=== PATIENT | male | born 1985 | race Caucasian/White ===

== ENCOUNTER → 2020-06-16 08:24 | Outpatient (BNVA) | payer OTHER, SELFPAY | PROVIDERS: PCP Family Medicine; Referring Provider Family Medicine; Visit Provider Nurse Practitioner Family | DX: G47.33 Obstructive sleep apnea (adult) (pediatric) (principal); I10 Essential (primary) hypertension | CPT/HCPCS: 99214 ==

== ENCOUNTER 2020-09-01 12:39 | Outpatient (REF) | payer OTHER, SELFPAY ==
--- NOTE | 2020-09-01 12:48 | XR_ITS ---
EXAMINATION: XR ANKLE, LEFT CLINICAL INFORMATION: Sprain COMPARISON: Previous x-ray 05/07/2020 TECHNIQUE: AP, lateral, and mortise views of the left ankle. FINDINGS: Bone alignment is normal. No acute fracture or dislocation is seen. There is evidence of old trauma to the medial malleolus. The ankle mortise is normal. There is a calcaneal spur at the Achilles tendon insertion. XR/XR ankle LT min 3V IMPRESSION: Old trauma to the medial malleolus. No acute fracture or dislocation seen.
== END 2020-09-01 12:40 | disposition home or self-care (01) ==
LOC: HO.XRAY 12:39
PROVIDERS: Absent Provider Family Medicine; PCP Family Medicine; Visit Provider Internal Medicine
DX: S93.402A Sprain of unspecified ligament of left ankle, initial encounter (principal); X58.XXXA Exposure to other specified factors, initial encounter
CPT/HCPCS: 73610

== ENCOUNTER 2020-09-01 16:23 | Outpatient (REF) | payer OTHER, SELFPAY | END 2020-09-01 16:24 | disposition home or self-care (01) | LOC: HO.LAB 16:23 | PROVIDERS: Visit Provider Internal Medicine | DX: Z20.828 Contact with and (suspected) exposure to other viral communicable diseases (principal) | CPT/HCPCS: C9803; U0003 ==

== ENCOUNTER → 2020-09-22 10:27 | Outpatient (BNVA) | payer OTHER, SELFPAY | PROVIDERS: PCP Family Medicine; Visit Provider Nurse Practitioner Family ==

== ENCOUNTER → 2020-11-10 08:49 | Outpatient (BNVA) | payer OTHER, SELFPAY | PROVIDERS: PCP Family Medicine; Visit Provider Surgery | DX: L72.11 Pilar cyst (principal) | CPT/HCPCS: 99202 ==

== ENCOUNTER 2020-11-18 07:38 | Outpatient (REF) | payer OTHER, SELFPAY ==
[2020-11-18 07:27] VITALS: BP 159/91; PULSE 58; RESP 18; TEMP 36.3; O2SAT 99; BMI 35.9
--- NOTE | 2020-11-18 08:25 | P.OP_ITS ---
Operative Note Operative Note Date of Service: 11/18/20 Narrative: Preoperative diagnosis: Recurrent Pilar cyst posterior scalp Postoperative diagnosis: Same Procedure: Excision of Pilar cyst posterior scalp Surgeon: Jude Brothers MD Marketing Systems Manager: None Anesthesia: Local Indications for procedure: 35-year-old male patient with a previous history of a posterior scalp Pilar cyst now with a recurrent Pilar cyst which is painful when touched. He denies any bleeding or discharge. On examination there is a 2 cm Pilar cyst in the posterior scalp below the previous incision suggestive of a recurrence. Operative findings: 2 cm Pilar cyst posterior scalp Specimen: Pilar cyst posterior scalp Estimated blood loss: 2 mL Complications: None Procedure details: Patient was brought to the minor surgery suite placed in a supine position and then placed in a sitting position. Informed consent was confirmed. The site of surgery was confirmed by the patient in the posterior scalp. Skin was then prepped with Betadine and draped in a sterile fashion. Local anesthesia consisting of 1% lidocaine with epinephrine was then infiltrated around the cyst. An elliptical incision was then made to include the previous incision and carried down through subcutaneous tissue. Sharp dissection with a sharp scissors was then used to dissect around the Pilar cyst. Dense adhesions were noted from the previous excision. The cyst was completely excised and sent to pathology intact. Pressure was held to maintain hemostasis. Skin was then closed using interrupted 3-0 Prolene sutures. Bacitracin was applied to the incision. The patient tolerated the procedure well. He was discharged to home in stable condition.
--- NOTE | 2020-11-18 08:25 | MHC.SHP ---
Pre-Procedural Eval Section A The patient is an INPATIENT: No Changes since office visit: Yes Patient answered all questions; No Cold of Flu in the past 2 weeks, No New Medical Problems and No Changes in Medication The History & Physical has been completed within 30 days and I have reviewed it.: Yes Section B Chief Complaint: Epidermal inclusion cyst, Pilar Cyst Allergies: Allergies Allergy/AdvReac Type Severity Reaction Status Date / Time No Known Allergies Allergy Verified 06/16/20 10:27 [No Known Allergies*] Plan Diagnosis/Plan: Unchanged I have reviewed the history and physical and performed a pertinent physical examination on my patient. No changes have occurred unless specified.
== END 2020-11-18 07:39 | disposition home or self-care (01) ==
LOC: HO.MS 07:38
PROVIDERS: PCP Family Medicine; Visit Provider Surgery
PROC: (CPT 11422; principal; 2020-11-18 08:00)
DX: L72.11 Pilar cyst (principal); L90.5 Scar conditions and fibrosis of skin
CPT/HCPCS: 11422; 88304

== ENCOUNTER → 2020-11-27 08:55 | Outpatient (BNVA) | payer OTHER, SELFPAY | PROVIDERS: PCP Family Medicine; Visit Provider Surgery | DX: Z48.817 Encounter for surgical aftercare following surgery on the skin and subcutaneous tissue (principal); Z87.2 Personal history of diseases of the skin and subcutaneous tissue | CPT/HCPCS: 99212 ==

== ENCOUNTER → 2020-12-15 10:40 | Outpatient (BNVA) | payer OTHER, SELFPAY | PROVIDERS: PCP Family Medicine; Visit Provider Nurse Practitioner Family ==

== ENCOUNTER → 2021-06-08 10:24 | Outpatient (REF) | payer OTHER, SELFPAY | LOC: HO.SL 10:24 | PROVIDERS: PCP Family Medicine; Visit Provider Nurse Practitioner Family | DX: G47.33 Obstructive sleep apnea (adult) (pediatric) (principal); Z99.89 Dependence on other enabling machines and devices | CPT/HCPCS: 99211 ==

== ENCOUNTER → 2021-06-29 08:25 | Outpatient (BNVA) | payer OTHER, SELFPAY | PROVIDERS: PCP Family Medicine; Referring Provider Family Medicine; Visit Provider Nurse Practitioner Family | DX: G47.33 Obstructive sleep apnea (adult) (pediatric) (principal); I10 Essential (primary) hypertension; Z99.89 Dependence on other enabling machines and devices | CPT/HCPCS: 99212 ==

== ENCOUNTER → 2022-03-08 15:09 | Outpatient (BNVA) | payer OTHER, SELFPAY | PROVIDERS: PCP Family Medicine; Visit Provider Surgery | DX: L72.11 Pilar cyst (principal) | CPT/HCPCS: 99212 ==

== ENCOUNTER 2022-04-05 15:17 | Outpatient (REF) | payer OTHER, SELFPAY ==
--- NOTE | ~2022-04-05 | US_ITS ---
EXAMINATION: US VENOUS ULTRASOUND WITH DOPPLER LOWER EXTREMITY, LEFT CLINICAL INFORMATION: Left thigh pain COMPARISON: None TECHNIQUE: Ultrasound of the deep veins is performed from the hip to the calf with compression sonography and color and pulse Doppler assessment. Spectral analysis with color-flow imaging is performed. FINDINGS: There is normal venous compression and respiratory variation and augmented flow. The visualized common femoral vein, superficial femoral vein, profunda femoral vein, popliteal vein, and the trifurcation region shows no evidence of deep venous thrombosis. There is no significant popliteal fossa cyst. US/US venous duplex LE LT IMPRESSION: No DVT demonstrated in the left lower extremity.
== END 2022-04-05 15:18 | disposition home or self-care (01) ==
LOC: HO.US 15:17
PROVIDERS: PCP Family Medicine; Visit Provider Emergency Medicine
DX: M79.652 Pain in left thigh (principal)
CPT/HCPCS: 93971

== ENCOUNTER 2022-04-26 11:15 | Outpatient (REF) | payer OTHER, SELFPAY ==
[2022-04-26 11:22] VITALS: BMI 36.6
[2022-04-26 11:23] VITALS: BP 150/88; PULSE 75; RESP 16; TEMP 36.8; O2SAT 98
--- NOTE | 2022-05-02 14:41 | P.OP_ITS ---
Operative Note Operative Note Date of Service: 04/26/22 Narrative: Preoperative diagnosis: Pilar cyst x2 Postoperative diagnosis: Pilar cyst x2 Procedure: Excision of Pilar cyst x2 Surgeon: Jude Brothers MD Garment Sewer Hand: No physician Anesthesia: Local Indications for procedure: 36-year-old male patient with 2 Pilar cyst 1 located over the frontal scalp on the right side and a 2nd located in the posterior scalp Operative findings: Pilar cyst x2 each measuring 1.5 cm in diameter Specimen: Pilar cyst x2 Estimated blood loss: Less than 1 mL Complications: None Procedure details: Patient was brought to the minor surgery suite placed in a supine sitting position. The site of surgery was confirmed by the patient in the scalp. After assuring informed consent the scalp was prepped with Betadine and draped in a sterile fashion. Local anesthesia consisting with 2% lidocaine with epinephrine was then infiltrated over each cyst. Incision was then made with scalpel directly over the cyst carried out through subcutaneous tissue. Sharp and blunt dissection was then used to dissect the cyst from the surrounding subcutaneous tissue. Skin was then closed using a 3-0 Prolene suture. After completing the anterior frontal scalp lesion, attention was directed to the posterior lesion which again was anesthetized using 2% lidocaine with epinephrine. Incision was then made over the lesion carried down through subcutaneous tissue up to the cyst wall. Sharp and blunt dissection was used to dissect the cyst from the surrounding subcutaneous tissue. Lesion was removed and sent to pathology for further examination. Skin was then closed using interrupted 3-0 Prolene sutures. Bacitracin ointment was applied to both incisions. The patient tolerated the procedure well. He was discharged to home in stable condition.
== END 2022-04-26 11:16 | disposition home or self-care (01) ==
LOC: HO.MS 11:15
PROVIDERS: PCP Family Medicine; Visit Provider Surgery
PROC: (CPT 11422; principal; 2022-04-26 11:20)
DX: L72.11 Pilar cyst (principal)
CPT/HCPCS: 11422 ×2; 88304

== ENCOUNTER 2022-04-29 05:59 | Outpatient (REF) | payer OTHER, SELFPAY ==
--- NOTE | ~2022-04-29 | CT_ITS ---
EXAMINATION: CT ABDOMEN AND PELVIS WITH CONTRAST CLINICAL INFORMATION: Left lower quadrant pain. COMPARISON: None TECHNIQUE: Multidetector volumetric images were obtained from the superior aspect of the liver through the pubic symphysis following administration 85 mL of Omnipaque 350 intravenous contrast. Sagittal and coronal reformatted images were obtained on the technologist's workstation. Oral contrast: No This CT examination was performed using dose optimization techniques as appropriate, variously including the following: *Automated exposure control *Adjustment of mA and/or kV according to patient size (this includes techniques or standardized protocols for targeted exams where dose is matched to indication/reason for exam; i.e. extremities or head) *Use of iterative reconstruction technique DLP: 719 mGy-cm FINDINGS: LUNG BASES: The visualized lung bases are unremarkable. LIVER, GALLBLADDER, AND BILIARY TREE: The liver is normal in size, shape, and generally diminished in attenuation. No focal hepatic lesion or biliary ductal dilatation is present. The gallbladder is unremarkable with no evidence of radiopaque gallstones, gallbladder wall thickening, or obvious pericholecystic inflammatory changes. PANCREAS: Unremarkable. SPLEEN: Unremarkable. ADRENAL GLANDS: Unremarkable. KIDNEYS AND URETERS: The kidneys are normal in size, shape, and attenuation. No hydronephrosis, hydroureter, or calculi seen. No perinephric stranding. BLADDER: Unremarkable. GASTROINTESTINAL TRACT: There is mild diverticulosis, without acute diverticulitis. There is associated mild sigmoid wall thickening. No bowel obstruction, free intraperitoneal air or abscess is seen. There is no focal bowel wall thickening. The vermiform appendix is unremarkable. ABDOMINAL WALL: There is a tiny fat-containing umbilical hernia. LYMPH NODES: Normal. VASCULAR: Unremarkable. PELVIC VISCERA: The prostate and seminal vesicles are unremarkable. OSSEOUS STRUCTURES: There is multi-level mild thoracic spondylosis. At L5-S1, moderate degenerative disc disease and spondylosis. No acute or aggressive osseous abnormality is seen. CT/CT abdomen pelvis w con IMPRESSION: 1. There is mild diverticulosis, without acute diverticulitis. No bowel obstruction, free intraperitoneal air or abscess is seen. The vermiform appendix appears normal. 2. No urinary calculus or obstructive uropathy is seen. 3. There is no abdominopelvic mass, free fluid lymphadenopathy. 4. There is mild hepatic steatosis. 5. There is thoracolumbar degenerative change, most pronounced at L5-S1, with moderate degenerative disc disease. No acute or aggressive osseous abnormality is seen. Fleischner guidelines were followed.
[2022-04-29] MEDS: iohexoL 350 MG/ML 100 ML INFUS..BTL IV (08:45)
[2022-04-29] MEDS: Barium Sulfate Oral (Berry) 450 ML ORAL.SUSP 900 ML PO (08:45)
== END 2022-04-29 06:00 | disposition home or self-care (01) ==
LOC: HO.CT 05:59
PROVIDERS: PCP Family Medicine; Visit Provider Emergency Medicine
DX: R10.32 Left lower quadrant pain (principal)
CPT/HCPCS: 74177; Q9967

== ENCOUNTER → 2022-05-03 09:58 | Outpatient (BNVA) | payer OTHER, SELFPAY | PROVIDERS: PCP Family Medicine; Visit Provider Surgery | DX: Z48.02 Encounter for removal of sutures (principal); Z87.2 Personal history of diseases of the skin and subcutaneous tissue | CPT/HCPCS: 99211 ==

== ENCOUNTER 2022-07-14 09:29 | Outpatient (REF) | payer OTHER, SELFPAY ==
--- NOTE | ~2022-07-14 | XR_ITS ---
EXAMINATION: XR ankle RT min 3V CLINICAL INFORMATION: Reason for Exam PAIN COMPARISON: Ankle radiographs 10/03/2006 TECHNIQUE: AP, lateral, and oblique views of the ankle FINDINGS: No acute fracture or dislocation. Mild degenerative changes of the ankle with tibiotalar spurring and Achilles tendon enthesopathy. Small tibiotalar joint effusion. Mild soft tissue swelling about the ankle. XR/XR ankle RT min 3V IMPRESSION: 1. Mild soft tissue swelling about the ankle without acute fracture or dislocation. 2. Small tibiotalar joint effusion. 3. Mild degenerative changes of the ankle.
== END 2022-07-14 09:30 | disposition home or self-care (01) ==
LOC: HO.XRAY 09:29
PROVIDERS: PCP Internal Medicine; Visit Provider Internal Medicine
DX: M25.571 Pain in right ankle and joints of right foot (principal)
CPT/HCPCS: 73610

== ENCOUNTER 2022-08-25 16:25 | Emergency (ER) | payer OTHER, SELFPAY ==
[2022-08-25 16:33] VITALS: BP 149/77; PULSE 80; RESP 20; TEMP 36.9; O2SAT 97; BMI 35.9
--- NOTE | 2022-08-25 16:42 | ED.GENADULT ---
HPI - General Adult General Chief complaint: Abdominal Pain Stated complaint: Left lower abd pain Time Seen by Provider: 08/25/22 21:13 Related Data Home Medications Medication Instructions Recorded Confirmed chlorthalidone 25 mg tablet 25 mg PO DAILY 09/22/20 05/18/22 ibuprofen 800 mg tablet 800 mg PO TID 11/10/20 05/18/22 famotidine 20 mg tablet 20 mg PO BID 05/18/22 05/18/22 Previous Rx's Medication Instructions Recorded docusate sodium 100 mg capsule 100 mg PO BID #20 caps 08/25/22 (Colace) ketorolac 10 mg tablet 10 mg PO TID PRN pain 5 days #15 08/25/22 tabs levofloxacin 750 mg tablet 750 mg PO DAILY 7 days #7 tabs 08/25/22 metronidazole 500 mg tablet 500 mg PO BID 7 days #14 tabs 08/25/22 polyethylene glycol 3350 17 17 g PO BID PRN constipation #238 08/25/22 gram/dose oral powder (Miralax) grams sennosides 8.6 mg tablet (senna) 8.6 mg PO BEDTIME #14 tabs 08/25/22 Allergies Allergy/AdvReac Type Severity Reaction Status Date / Time No Known Allergies Allergy Verified 05/18/22 08:22 [No Known Allergies*] [facility] Past Medical History Medical History Hypertension Surgical History History of epidermal inclusion cyst excision (06/06/17) Hx of removal of cyst Family History Family History Father Diabetes Mother No problems noted. 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 Labs ordered and CT scan of abdomen. Positive LLQ tenderness on palpation. Radiologist tech called me too room and made me aware of pleny of fat stranding in testine. I received image and spoke with Charge nurse Vaishali to bring patient to the ED. Medications Administered Discontinued Medications Generic Name Dose Route Start Last Admin Trade Name Freq PRN Reason Stop Dose Admin Ketorolac Tromethamine 30 mg 08/25/22 21:56 08/25/22 22:21 Ketorolac Tromethamine 15 Mg/Ml Vial IM 08/25/22 21:57 30 mg ONCE ONE Administration Levofloxacin 500 mg 08/25/22 21:46 08/25/22 22:20 Levofloxacin 500 Mg Tablet PO 08/25/22 21:47 500 mg ONCE ONE Administration Metronidazole 500 mg 08/25/22 21:46 08/25/22 22:21 Metronidazole 500 Mg Tablet PO 08/25/22 21:47 500 mg ONCE ONE Administration Medical Decision Making Lab Data Result Diagrams: 08/25/22 17:47 08/25/22 17:47 Labs: Lab Results 08/25/22 08/25/22 08/25/22 Range/Units 17:47 17:47 17:47 WBC 13.5 H (4.8-10.8) X10*3/uL RBC 5.28 (4.60-5.80) X10*6/uL Hgb 14.4 (14.0-18.0) g/dl Hct 42.2 (42.0-52.0) % MCV 79.9 L (80.0-98.0) fL MCH 27.3 (27.0-33.0) pg MCHC 34.1 (31.0-36.0) g/dl RDW 13.1 (11.0-16.0) % Plt Count 299 (160-400) X10*3/uL MPV 10.9 (9.4-12.4) fL Immature Gran % (Auto) 0.3 (0.0-0.4) % Neut % (Auto) 75.3 H (45-73) % Lymph % (Auto) 15.1 L (20-40) % Nye % (Auto) 8.2 (2-11) % Eos % (Auto) 0.6 (0-4) % Baso % (Auto) 0.5 (0-2) % Lymph # (Auto) 2.0 (1.2-4.9) X10*3/uL Nye # (Auto) 1.1 (0.1-1.2) X10*3/uL Eos # (Auto) 0.1 (0.0-0.4) X10*3/uL Baso # (Auto) 0.1 (0.0-0.2) X10*3/uL Abs Immat Gran (auto) 0.04 H (0.00-0.03) X10*3/uL Absolute Neuts (auto) 10.1 H (2.0-8.3) x10*3/uL Absolute Nucleated RBC 0.000 (0.0-0.012) X10*3/uL Nucleated RBC % (auto) 0.0 (0.0-0.2) /100WBC PT 12.5 (10.0-13.1) SEC INR 1.1 (0.9-1.1) APTT 32.3 (26.0-36.4) SEC Sodium 141 (135-145) mmol/L Potassium 3.9 (3.3-5.1) mmol/L Chloride 101 (96-108) mmol/L Carbon Dioxide 29 (22-29) mmol/L Anion Gap 15 (12-20) BUN 14 (9-16) mg/dL Creatinine 0.96 (0.5-1.4) mg/dL Estim Creat Clear Calc 136.7 Estimated GFR > 60 Random Glucose 100 (60-115) mg/dL Calcium 9.7 (8.4-10.2) mg/dL Total Bilirubin 0.5 (0.0-1.0) mg/dL AST 26 (5-37) U/L ALT 44 H (0-40) U/L Alkaline Phosphatase 66 (39-117) U/L Total Protein 7.6 (6.5-8.0) g/dL Albumin 4.6 (3.5-5.0) g/dL Lipase 16 (8-78) U/L Discharge Plan Discharge Clinical Impression: Diverticulitis, Constipation Patient Disposition: Home, Self-Care Instructions: Diverticulitis (ED), Diverticulitis Diet (ED) Additional Instructions: Take your medications as prescribed. If you were prescribed antibiotics today, it is important that you take your medication to their entirety, do not skip any doses, do not finish them early. Follow-up with your primary care provider this week. Follow-up with Gastroenterology within the next week. Return to the emergency department with new or worsening symptoms. Such as fevers, chills, chest pain, shortness of breath, nausea, vomiting, dizziness, headache, vision changes, lethargy, rectal bleeding, inability to tolerate food by mouth, worsening pain or changing of quality of pain In case of emergency call 911 Please follow-up with diverticulitis diet Levofloxacin is an antibiotic that belongs to a class of fluoroquinolones, this antibiotic can cause tendon rupture, if you experience any pain to joints please be evaluated immediately. Do not exercise for a few weeks or until medically cleared. Do not take Toradol with any other anti-inflammatory medication, do not take with ibuprofen. Do not drink while taking this. This can increase chances of internal bleeding, GI bleeding as well as can cause kidney injury Prescriptions: New metronidazole 500 mg tablet 500 mg PO BID 7 Days Qty: 14 0RF ketorolac 10 mg tablet 10 mg PO TID PRN (Reason: pain) 5 Days Qty: 15 0RF Rx Instructions: Tolerated IM in the department levofloxacin 750 mg tablet 750 mg PO DAILY 7 Days Qty: 7 0RF docusate sodium [Colace] 100 mg capsule 100 mg PO BID Qty: 20 0RF sennosides [senna] 8.6 mg tablet 8.6 mg PO BEDTIME Qty: 14 0RF polyethylene glycol 3350 [Miralax] 17 gram/dose powder 17 g PO BID PRN (Reason: constipation) Qty: 238 0RF No Action chlorthalidone 25 mg tablet 25 mg PO DAILY ibuprofen 800 mg tablet 800 mg PO TID famotidine 20 mg tablet 20 mg PO BID Referrals: [facility] [Provider Group] - 1 day Jyoti Berry MD [Primary Care Provider] - 2 days Stand Alone Forms: Work/School Release Interventions: ED Discharge Assessment Last Done: 08/25/22 22:21 Discharge Date/Time: 08/25/22 22:29
[2022-08-25 17:51] LABS: MANUAL DIFF FLAG NO
[2022-08-25 17:53] LABS: Basophils Absolute Auto 0.1 X10*3/uL (0.0-0.2); Basophils Percent Auto 0.5 % (0-2); Eosinophils Absolute Auto 0.1 X10*3/uL (0.0-0.4); Eosinophils Percent Auto 0.6 % (0-4); Hematocrit 42.2 % (42.0-52.0); Hemoglobin 14.4 g/dl (14.0-18.0); Imm Gran Abs Auto 0.04 X10*3/uL (0.00-0.03); Imm Gran Pct Auto 0.3 % (0.0-0.4); Lymphocytes Percent Auto 15.1 % (20-40); Mean Corpuscular HGB Conc 34.1 g/dl (31.0-36.0); Mean Corpuscular Hemoglobin 27.3 pg (27.0-33.0); Mean Corpuscular Volume 79.9 fL (80.0-98.0); Mean Platelet Volume 10.9 fL (9.4-12.4); Monocytes Absolute Auto 1.1 X10*3/uL (0.1-1.2); Monocytes Percent Auto 8.2 % (2-11); Neutrophils Absolute Auto 10.1 x10*3/uL (2.0-8.3); Neutrophils Percent Auto 75.3 % (45-73); Platelet Count 299 X10*3/uL (160-400); Red Blood Count 5.28 X10*6/uL (4.60-5.80); Red Cell Distribution Width 13.1 % (11.0-16.0); White Blood Count 13.5 X10*3/uL (4.8-10.8)
[2022-08-25 18:11] LABS: INTERNATIONAL NORM RATIO 1.1 (0.9-1.1); Prothrombin Time 12.5 SEC (10.0-13.1)
[2022-08-25 18:14] LABS: Partial Thromboplastin Time 32.3 SEC (26.0-36.4)
[2022-08-25 18:20] LABS: Alanine Aminotransferase 44 U/L (0-40); Albumin Level 4.6 g/dL (3.5-5.0); Alkaline Phosphatase 66 U/L (39-117); Anion Gap 15 (12-20); Aspartate Amino Transferase 26 U/L (5-37); Bilirubin Total 0.5 mg/dL (0.0-1.0); Blood Urea Nitrogen 14 mg/dL (9-16); Calcium 9.7 mg/dL (8.4-10.2); Carbon Dioxide 29 mmol/L (22-29); Chloride 101 mmol/L (96-108); Creatinine Clr Calc Pharmacy 136.7; Estimated Glomerular Filt Rate > 60; Glucose Random 100 mg/dL (60-115); Potassium 3.9 mmol/L (3.3-5.1); Sodium 141 mmol/L (135-145); Total Protein 7.6 g/dL (6.5-8.0)
--- NOTE | 2022-08-25 21:34 | ED.ABDPAIN ---
HPI - Abdominal Pain General Chief Complaint: Abdominal Pain Stated Complaint: Left lower abd pain Time Seen by Provider: 08/25/22 21:13 Source: patient Mode of arrival: ambulatory Limitations: no limitations History of Present Illness HPI narrative: This is a 36-year-old male history of hypertension, obstructive sleep apnea, presenting to the emergency department complaints of left lower quadrant pain since this morning. Patient describes the pain as a sharp pain that is located only in the left lower quadrant without radiation, fluctuates in intensity. Associated with 3 days of no bowel movement. Reports decreased appetite however still eating and tolerating p.o.. Denies fevers, chills, chest pain, shortness of breath, nausea, vomiting, headache, vision changes, dizziness, weakness, testicular pain . No history of diverticulitis. Has not had a colonoscopy in the past. Related Data Home Medications Medication Instructions Recorded Confirmed chlorthalidone 25 mg tablet 25 mg PO DAILY 09/22/20 05/18/22 ibuprofen 800 mg tablet 800 mg PO TID 11/10/20 05/18/22 famotidine 20 mg tablet 20 mg PO BID 05/18/22 05/18/22 Previous Rx's Medication Instructions Recorded ketorolac 10 mg tablet 10 mg PO TID PRN pain 5 days #15 08/25/22 tabs levofloxacin 750 mg tablet 750 mg PO DAILY 7 days #7 tabs 08/25/22 metronidazole 500 mg tablet 500 mg PO BID 7 days #14 tabs 08/25/22 Allergies Allergy/AdvReac Type Severity Reaction Status Date / Time No Known Allergies Allergy Verified 05/18/22 08:22 [No Known Allergies*] Review of Systems Review of Systems Constitutional : No Weight loss, No Fever, No Chills, No Fatigue, No Malaise ENT/Mouth : No sore throat, No Rhinorrhea Eyes: No Eye Pain, No Swelling, No Redness Cardiovascular : No Chest Pain, No SOB, No Dyspnea on Exertion, No Orthopnea, No Edema, No Palpitations Respiratory : No Cough, No Sputum, No Wheezing Gastrointestinal : No Nausea, No Vomiting, No Diarrhea, No Constipation, + abdominal Pain, No Hematochezia, No Melena Genitourinary : No Dysuria, No Urinary Frequency, No Hematuria, Musculoskeletal : No joint pain, No Myalgias, No Joint Swelling Skin : No Skin Lesions, No rash Neuro : No Weakness, No Numbness, No Dizziness, No Headache Psych : No Anxiety/Panic, No Depression All other systems reviewed and are negative Yes all other systems are reviewed and are negative [facility] Past Medical History Attestation statement: The following information was validated with the patient. Source: old records reviewed and nursing notes reviewed Medical History Hypertension Surgical History History of epidermal inclusion cyst excision (06/06/17) Hx of removal of cyst Family History Family History Father Diabetes Mother No problems noted. 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 Appearance: Alert.? Oriented X3.? No acute distress.? Patient well-appearing Head: Normocephalic, atraumatic, no step-offs or deformities Eyes: Pupils equal, round and reactive to light.? ENT: Pharynx normal.? Neck: Normal inspection.? Neck supple.? CVS: Normal heart rate and rhythm.? Pulses normal.? Respiratory: No respiratory distress.? Breath sounds normal.? Abdomen: Soft and pain to left lower quadrant pain Skin: Skin warm and dry.? Normal skin color.? Normal skin turgor.? Extremities: No lower extremity edema.? No calf ttp. 5/5 strength to bilateral upper and lower extremities Neuro: Oriented X 3.? No motor deficit.? No sensory deficit. CN 2-12 intact Course Reevaluation(s) Reevaluation #1: Patient's CBC with slight leukocytosis. Chemistry with no acute electrolyte abnormalities requiring intervention. CT of the abdomen pelvis with acute uncomplicated diverticulitis involving the junction of the sigmoid and descending colon. Will give levofloxacin and metronidazole. Will give Toradol for pain. Patient tolerating p.o.. I suspect he can be discharged home with prompt PCP and GI follow-up. Educated patient on diagnosis and treatment plan, answered all question, patient verbalizes understanding. At this time patient will be discharged home, advised to return with new or worsening symptoms. Educated on worrisome signs and symptoms and when to return. At this time I feel comfortable discharge home. Time: 21:57 Medical Decision Making Medical Decision Making [facility] Narrative: [id number] 36-year-old male presenting to the emergency department with sudden-onset left lower quadrant pain described as sharp and intermittent in nature. No history of diverticulitis however history of diverticulosis. Has not had a colonoscopy in the past. Physical exam of left lower quadrant pain on palpation. Normoactive bowel sounds for Concerns for diverticulitis versus diverticulosis. Unlikely UTI no urinary symptoms. Unlikely acute abdomen. Patient well-appearing. Plan at this time labs, imaging Lab Data Result Diagrams: 08/25/22 17:47 08/25/22 17:47 Labs: Lab Results 08/25/22 08/25/22 08/25/22 Range/Units 17:47 17:47 17:47 WBC 13.5 H (4.8-10.8) X10*3/uL RBC 5.28 (4.60-5.80) X10*6/uL Hgb 14.4 (14.0-18.0) g/dl Hct 42.2 (42.0-52.0) % MCV 79.9 L (80.0-98.0) fL MCH 27.3 (27.0-33.0) pg MCHC 34.1 (31.0-36.0) g/dl RDW 13.1 (11.0-16.0) % Plt Count 299 (160-400) X10*3/uL MPV 10.9 (9.4-12.4) fL Immature Gran % (Auto) 0.3 (0.0-0.4) % Neut % (Auto) 75.3 H (45-73) % Lymph % (Auto) 15.1 L (20-40) % [place] % (Auto) 8.2 (2-11) % Eos % (Auto) 0.6 (0-4) % Baso % (Auto) 0.5 (0-2) % Lymph # (Auto) 2.0 (1.2-4.9) X10*3/uL [place] # (Auto) 1.1 (0.1-1.2) X10*3/uL Eos # (Auto) 0.1 (0.0-0.4) X10*3/uL Baso # (Auto) 0.1 (0.0-0.2) X10*3/uL Abs Immat Gran (auto) 0.04 H (0.00-0.03) X10*3/uL Absolute Neuts (auto) 10.1 H (2.0-8.3) x10*3/uL Absolute Nucleated RBC 0.000 (0.0-0.012) X10*3/uL Nucleated RBC % (auto) 0.0 (0.0-0.2) /100WBC PT 12.5 (10.0-13.1) SEC INR 1.1 (0.9-1.1) APTT 32.3 (26.0-36.4) SEC Sodium 141 (135-145) mmol/L Potassium 3.9 (3.3-5.1) mmol/L Chloride 101 (96-108) mmol/L Carbon Dioxide 29 (22-29) mmol/L Anion Gap 15 (12-20) BUN 14 (9-16) mg/dL Creatinine 0.96 (0.5-1.4) mg/dL Estim Creat Clear Calc 136.7 Estimated GFR > 60 Random Glucose 100 (60-115) mg/dL Calcium 9.7 (8.4-10.2) mg/dL Total Bilirubin 0.5 (0.0-1.0) mg/dL AST 26 (5-37) U/L ALT 44 H (0-40) U/L Alkaline Phosphatase 66 (39-117) U/L Total Protein 7.6 (6.5-8.0) g/dL Albumin 4.6 (3.5-5.0) g/dL Critical Care Time Critical Care Time Critical Care Time: No Discharge Plan Discharge Clinical Impression: Diverticulitis Patient Disposition: Home, Self-Care Instructions: Diverticulitis (ED), Diverticulitis Diet (ED) Additional Instructions: Take your medications as prescribed. If you were prescribed antibiotics today, it is important that you take your medication to their entirety, do not skip any doses, do not finish them early. Follow-up with your primary care provider this week. Follow-up with Gastroenterology within the next week. Return to the emergency department with new or worsening symptoms. Such as fevers, chills, chest pain, shortness of breath, nausea, vomiting, dizziness, headache, vision changes, lethargy, rectal bleeding, inability to tolerate food by mouth, worsening pain or changing of quality of pain In case of emergency call 911 Please follow-up with diverticulitis diet Levofloxacin is an antibiotic that belongs to a class of fluoroquinolones, this antibiotic can cause tendon rupture, if you experience any pain to joints please be evaluated immediately. Do not exercise for a few weeks or until medically cleared. Do not take Toradol with any other anti-inflammatory medication, do not take with ibuprofen. Do not drink while taking this. This can increase chances of internal bleeding, GI bleeding as well as can cause kidney injury Prescriptions: New metronidazole 500 mg tablet 500 mg PO BID 7 Days Qty: 14 0RF ketorolac 10 mg tablet 10 mg PO TID PRN (Reason: pain) 5 Days Qty: 15 0RF Rx Instructions: Tolerated IM in the department levofloxacin 750 mg tablet 750 mg PO DAILY 7 Days Qty: 7 0RF No Action chlorthalidone 25 mg tablet 25 mg PO DAILY ibuprofen 800 mg tablet 800 mg PO TID famotidine 20 mg tablet 20 mg PO BID Referrals: Jyoti Berry MD [Primary Care Provider] - 2 days [facility] [Provider Group] - 1 day Stand Alone Forms: Work/School Release
[2022-08-25] MEDS: levoFLOXacin 500 MG TABLET PO (22:20)
[2022-08-25] MEDS: metroNIDAZOLE 500 MG TABLET PO (22:21)
[2022-08-25] MEDS: Ketorolac Tromethamine 15 MG/ML VIAL 30 MG IM (22:21)
[2022-08-25 22:22] LABS: Lipase 16 U/L (8-78)
== END 2022-08-25 22:29 | disposition home or self-care (01) ==
PROVIDERS: Physician Assistant; Emergency Provider Internal Medicine; PCP Family Medicine
DX: K57.32 Diverticulitis of large intestine without perforation or abscess without bleeding (principal); I10 Essential (primary) hypertension
CPT/HCPCS: 36415; 74176; 80053; 83690; 85025; 85610; 85730; 96372; 99283; 99284; J1885

== ENCOUNTER → 2022-09-13 08:18 | Outpatient (BNVA) | payer OTHER, SELFPAY | PROVIDERS: PCP Family Medicine; Referring Provider Family Medicine; Visit Provider Internal Medicine | DX: K57.32 Diverticulitis of large intestine without perforation or abscess without bleeding (principal) | CPT/HCPCS: 99202 ==

== ENCOUNTER 2022-09-22 08:13 | Outpatient (REF) | payer OTHER, SELFPAY ==
--- NOTE | ~2022-09-22 | US_ITS ---
EXAMINATION: US ABDOMEN COMPLETE CLINICAL INFORMATION: Elevated LFTs. COMPARISON: CT abdomen and pelvis 08/25/2022. TECHNIQUE: Real-time imaging of the abdominal viscera. FINDINGS: PANCREAS: Obscured by overlying bowel gas. ABDOMINAL AORTA: Obscured by overlying bowel gas. INFERIOR VENA CAVA: Visualized portions are normal. LIVER: The liver is normal in size. The liver contour is normal. Diffuse increased echogenicity of the liver parenchyma. No focal hepatic lesion. There is no intrahepatic biliary duct dilatation seen. GALLBLADDER: Normal. The gallbladder is physiologically distended without evidence of stones, sludge, polyps, wall thickening or pericholecystic fluid. COMMON BILE DUCT: Normal in caliber measuring 0.3 cm in diameter. RIGHT KIDNEY: Normal. No hydronephrosis. No renal calculi or focal parenchymal lesions. The kidney measures 10.7 cm in maximum dimension. LEFT KIDNEY: Normal. No hydronephrosis. No renal calculi or focal parenchymal lesions. The kidney measures 11.3 cm in maximum dimension. SPLEEN: Normal. The spleen measures 11.9 cm in maximum dimension. FREE FLUID: None. US/US abdomen complete IMPRESSION: Diffuse increased echogenicity of the liver parenchyma likely reflects fatty infiltration.
== END 2022-09-22 08:14 | disposition home or self-care (01) ==
LOC: HO.US 08:13
PROVIDERS: PCP Family Medicine; Visit Provider Family Medicine
DX: R74.01 Elevation of levels of liver transaminase levels (principal)
CPT/HCPCS: 76700

== ENCOUNTER 2022-10-26 08:13 | Day surgery (SDC) | payer OTHER, SELFPAY ==
[2022-10-19 14:46] VITALS: BMI 33.8
[2022-10-26 08:35] VITALS: BP 147/94; PULSE 77; RESP 18; TEMP 36.5; O2SAT 99; BMI 33.8
[2022-10-26] MEDS: Lactated Ringers 1,000 ML 50 ML IVCONT (08:57)
--- NOTE | 2022-10-26 10:25 | P.OP_ITS ---
Operative Note Operative Note Date of Service: 10/26/22 Narrative: Procedure: Colonoscopy Indication: Diverticulitis Endoscopist: Molly Trevino MD Anesthesia Provider: Dr Haydee Hayward Anesthesia type: MAC Instrument: Olympus [id number]-[id number] Consent: Indication, risks vs benefits, and alternatives were discussed with the patient who gave written informed consent to proceed. EKG, pulse, pulse oximetry and blood pressure were monitored throughout the procedure. Please see anesthesia flowsheet. Procedure: The patient was brought to the procedure room and placed in the left lateral decubitus position. IV medications were administered by the anesthesia provider in attendance. A digital rectal exam was performed which was normal. The colonoscope was then inserted through the anus and advanced through the colon to the cecum at 70 cm,and terminal ileum. Mucosa was carefully examined under high definition white light as the instrument was slowly withdrawn in a retrograde panoramic fashion. Retroflexion was performed in rectum. The procedure was not difficult. There were no immediate obvious complications. The quality of the prep was BBPS: 3+3+3 = excellent Withdrawal time 8 minutes. Limitations: No limitations. Findings: Mucosa: Normal to cecum and terminal ileum. Protruding lesions: * Medium internal hemorrhoids without stigmata of recent bleeding. Excavated lesions: * Moderate diverticulosis of left sided colon. Impression: 1. Normal colon and terminal ileum mucosa 2. Diverticulosis 3. Internal hemorrhoids Recommendations: - Resume CRC screening at 47y.o - Increase fiber intake. Above findings were reviewed with the patient.
--- NOTE | 2022-10-26 10:25 | MHC.SHP ---
Pre-Procedural Eval Section A Date of Service: 10/26/22 Section B Chief Complaint: Hx of diverticulitis Details of Present Illness: Medical History Hypertension Surgical History History of epidermal inclusion cyst excision (06/06/17) Hx of removal of cyst Relevant Family History (Specify if Yes): No Present Medications: see Short Stay Collaborative assessment Medical History: Significant History (as above ) History of Previous Operations: Relevant previous surgery/procedure and date(s) (as above ) Allergies: Allergies Allergy/AdvReac Type Severity Reaction Status Date / Time No Known Allergies Allergy Verified 05/18/22 08:22 [No Known Allergies*] Review of Systems Review of Systems Comment: Ten point ROS negative Exam Exam Comment: Gen appear: No acute distress HEENT: no icterus Chest: No overt resp distress Abd: soft, nontender, nondistended Psych: Stable affect, answering questions appropriately Neuro: A/Ox3 noted to move all extremities spontaneously Ext: no peripheral edema Plan Diagnosis/Plan: Unchanged I have reviewed the history and physical and performed a pertinent physical examination on my patient. No changes have occurred unless specified. Time Spent With Patient Time: Total time managing care of this patient today ____ minutes.
--- NOTE | 2022-10-26 10:59 | HO.ANESPROP2 ---
HPI - Anesthesia Eval Consult details Narrative: 37 yr old for diverticulitis , colonoscopy PMFSH Active Problems Active Problems: All Active Problems (Updated 10/19/22 @ 14:49 by Lorna Mc RN) Severe obstructive sleep apnea (Acute ~06/16/20) Pilar cyst (Acute) Diverticulitis large intestine (Acute) Hypertension (Acute) Past Medical History Medical History (Updated 10/19/22 @ 14:49 by Lorna Mc RN) Arthritis Diverticulitis GERD (gastroesophageal reflux disease) Hypertension Obstructive sleep apnea Family History Family History Father Diabetes Mother No problems noted. Family history of problems with anesthesia: No Surgical History Surgical History (Updated 10/19/22 @ 14:29 by Lorna Mc RN) History of epidermal inclusion cyst excision (06/06/17) Hx of removal of cyst History of Problems with Anesthesia: No Social History Social History Household Members: Spouse and Children Alcohol intake: never Patient Tobacco Use Status: Never used Tobacco Use of substances other than those prescribed or required for medical reasons: Yes Substance Use Type Other:: has not used any marijuana recently Substance Use Frequency: Occasionally Have you been hit, kicked, punched, or otherwise hurt by someone within the past year? 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- [employer] Meds Allergies Allergy/AdvReac Type Severity Reaction Status Date / Time No Known Allergies Allergy Verified 05/18/22 08:22 [No Known Allergies*] Active Medications: Current Medications Lactated Ringer's (Lr) 1,000 mls @ 50 mls/hr IVCONT .Q20H FRED Last Admin: 10/26/22 08:57 Dose: 50 mls/hr Home Medications Medication Instructions Recorded Confirmed Last Taken Type chlorthalidone 25 mg tablet 25 mg PO DAILY 09/22/20 10/19/22 Unknown History ibuprofen 800 mg tablet 800 mg PO TID 11/10/20 10/19/22 09/26/22 History omeprazole 20 mg capsule,delayed 1 cap PO DAILY 10/26/22 10/26/22 Unknown History release Exam Exam Date and Time: October 26, 2022 1059 Height,Weight and Vital Signs: Height 5 ft 10 in Weight 107.048 kg Last Vital Signs Temp 97.7 F 10/26/22 08:35 Pulse 77 10/26/22 08:35 Resp 18 10/26/22 08:35 BP 147/94 H 10/26/22 08:35 Pulse Ox 99 10/26/22 08:35 O2 Del Method 10/26/22 08:35 Airway Mallampati Class: II TM Dist: >3cm Neck ROM: Full Heart: rrr Lungs: cta Assessment and Plan Assessment Anesthesia Assessment: Anesthesia Plan Discussed and Chart Reviewed Final Anesthetic Review Family History of Problems with Anesthesia: No History of Problems with Anesthesia: No NPO: Yes ASA Class: II Final Preanesthetic Review: No Changes in Pt Med Stat, Meds/Allgs Chart Reviewed, Consent Obtained/Reviewed and Anes Risks/Benef Reviewed Patient Risk: Low Procedure Risk: Low Anesthetic Plan Anesthetic Plan: MAC: Disposition: Standard PACU
--- NOTE | 2022-10-26 11:32 | HO.ANESPROP2 ---
[facility] Active Problems Active Problems: All Active Problems (Updated 10/19/22 @ 14:49 by Lorna Mc RN) Severe obstructive sleep apnea (Acute ~06/16/20) Pilar cyst (Acute) Diverticulitis large intestine (Acute) Hypertension (Acute) Past Medical History Medical History (Updated 10/19/22 @ 14:49 by Lorna Mc RN) Arthritis Diverticulitis GERD (gastroesophageal reflux disease) Hypertension Obstructive sleep apnea Family History Family History Father Diabetes Mother No problems noted. Family history of problems with anesthesia: No Surgical History Surgical History (Updated 10/19/22 @ 14:29 by Lorna Mc RN) History of epidermal inclusion cyst excision (06/06/17) Hx of removal of cyst History of Problems with Anesthesia: No Social History Social History Household Members: Spouse and Children Alcohol intake: never Patient Tobacco Use Status: Never used Tobacco Use of substances other than those prescribed or required for medical reasons: Yes Substance Use Type Other:: has not used any marijuana recently Substance Use Frequency: Occasionally Have you been hit, kicked, punched, or otherwise hurt by someone within the past year? 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- [employer] Meds Allergies Allergy/AdvReac Type Severity Reaction Status Date / Time No Known Allergies Allergy Verified 05/18/22 08:22 [No Known Allergies*] Active Medications: Current Medications Lactated Ringer's (Lr) 1,000 mls @ 50 mls/hr IVCONT .Q20H FRED Last Admin: 10/26/22 08:57 Dose: 50 mls/hr Home Medications Medication Instructions Recorded Confirmed Last Taken Type chlorthalidone 25 mg tablet 25 mg PO DAILY 09/22/20 10/19/22 Unknown History ibuprofen 800 mg tablet 800 mg PO TID 11/10/20 10/19/22 09/26/22 History omeprazole 20 mg capsule,delayed 1 cap PO DAILY 10/26/22 10/26/22 Unknown History release Exam Exam Date and Time: October 26, 2022 1132 Height,Weight and Vital Signs: Height 5 ft 10 in Weight 107.048 kg Last Vital Signs Temp 97.7 F 10/26/22 08:35 Pulse 77 10/26/22 08:35 Resp 18 10/26/22 08:35 BP 147/94 H 10/26/22 08:35 Pulse Ox 99 10/26/22 08:35 O2 Del Method 10/26/22 08:35 Airway Mallampati Class: II TM Dist: >3cm Neck ROM: Full Heart: rrr Lungs: cta Assessment and Plan Final Anesthetic Review Family History of Problems with Anesthesia: No History of Problems with Anesthesia: No ASA Class: II Final Preanesthetic Review: No Changes in Pt Med Stat, Meds/Allgs Chart Reviewed, Consent Obtained/Reviewed and Anes Risks/Benef Reviewed Patient Risk: Low Procedure Risk: Low Anesthetic Plan Anesthetic Plan: MAC: and Agree w/ Assess. and Plan Disposition: Standard PACU
[2022-10-26 12:10] VITALS: BP 100/52; PULSE 76; RESP 17; TEMP 36.6; O2SAT 100
[2022-10-26 12:25] VITALS: BP 122/73; PULSE 70; RESP 17; TEMP 36.6; O2SAT 97
== END 2022-10-26 12:57 | disposition home or self-care (01) ==
PROVIDERS: PCP Family Medicine; Visit Provider Internal Medicine
PROC: 0DJD8ZZ Inspection of Lower Intestinal Tract, Via Natural or Artificial Opening Endoscopic (ICD-10-PCS; CPT 45378; principal; 2022-10-26 09:30)
DX: K57.30 Diverticulosis of large intestine without perforation or abscess without bleeding (principal); K64.8 Other hemorrhoids; G47.33 Obstructive sleep apnea (adult) (pediatric); I10 Essential (primary) hypertension; K21.9 Gastro-esophageal reflux disease without esophagitis; M19.90 Unspecified osteoarthritis, unspecified site; Z79.899 Other long term (current) drug therapy; Z79.1 Long term (current) use of non-steroidal anti-inflammatories (NSAID); Z99.89 Dependence on other enabling machines and devices
CPT/HCPCS: 45378; J2250

== ENCOUNTER → 2022-11-11 13:59 | Outpatient (BNVA) | payer OTHER, SELFPAY | PROVIDERS: PCP Family Medicine; Visit Provider Internal Medicine | DX: K57.90 Diverticulosis of intestine, part unspecified, without perforation or abscess without bleeding (principal); K76.0 Fatty (change of) liver, not elsewhere classified; R74.01 Elevation of levels of liver transaminase levels; E66.9 Obesity, unspecified | CPT/HCPCS: 99212 ==

== ENCOUNTER → 2023-03-02 10:30 | Outpatient (BNVA) | payer OTHER, SELFPAY | PROVIDERS: PCP Family Medicine; Visit Provider Internal Medicine | DX: S60.012A Contusion of left thumb without damage to nail, initial encounter (principal); W23.2XXA Caught, crushed, jammed or pinched between a moving and stationary object, initial encounter | CPT/HCPCS: 73130; 99203 ==

== ENCOUNTER 2023-06-05 10:16 | Outpatient (REF) | payer OTHER, SELFPAY ==
[2023-06-05 12:50] LABS: Alanine Aminotransferase 23 U/L (0-40); Albumin Level 4.5 g/dL (3.5-5.0); Alkaline Phosphatase 62 U/L (39-117); Aspartate Amino Transferase 21 U/L (5-37); Bilirubin Direct 0.1 mg/dL (0.0-0.5); Bilirubin Total 0.4 mg/dL (0.0-1.0); Total Protein 7.9 g/dL (6.5-8.0)
[2023-06-05 12:57] LABS: HBS Num1 115.96 mIU/mL (0-7.99); HBc Num1 0.25 S/CO (0.00-0.79); HBsAGNum1 0.43 S/CO (0.00-0.99); Hepatitis B Core Antibody Nonreactive (Nonreactive); Hepatitis B Surface Antigen Negative (Negative); ~HepC Num1 0.18 S/CO (0.00-0.79); ~Hepatitis B Surface Antibody REACTIVE (Nonreactive); ~Hepatitis C Antibody Nonreactive (Nonreactive)
[2023-06-05 13:05] LABS: Hepatitis A Antibody IgG Nonreactive (Nonreactive); ~Hepatitis A Antibody IgG 0.42 S/CO (0.00-0.99)
== END 2023-06-05 10:17 | disposition home or self-care (01) ==
LOC: HO.LAB 10:16
PROVIDERS: Visit Provider Internal Medicine
DX: E66.9 Obesity, unspecified (principal); K76.0 Fatty (change of) liver, not elsewhere classified; R74.01 Elevation of levels of liver transaminase levels
CPT/HCPCS: 36415; 80076; 86704; 86706; 86708; 86803; 87340; 99212

== ENCOUNTER 2023-06-05 15:40 | Outpatient (AMB) | payer OTHER, SELFPAY ==
--- NOTE | 2023-06-05 15:44 | A.OFFVIS_ITS ---
Intake Vital Signs 06/05/23 15:47 Height 5 ft 10 in Weight 238 lb 1.588 oz BMI 34.2 BP 126/66 Blood Pressure Location Lt brachial Position Sitting Pulse 67 Intake Visit Reasons: 6 month follow up Intake Note: Gunnar presents in the office as a 6 month follow up. CC: Allergies No Known Allergies [No Known Allergies*] Allergy (Verified 06/05/23 15:47) HPI HPI Comments History of Present Illness Details 36 y.o M with hx of recent diverticuliti s who is presenting for follow- up after colonoscopy. 09/13/2022: Was seen in ER on 08/25 for LLQ pain associated with diarrhea and scant blood in stool x 3 days prior to presentation. Was discharged on levaquin and flagyl x 7 days. LLQ pain resolved in a few days but now has epigastric pain with loss of appetite. No N,V. Stools are now normal in consistency. Has also noted some weight loss in the last one month, has not documented it but feels that clothes are looser now. No fam of IBD or CRC. No prior hx of episodes. Does not smoke or drink. ROS: 10 point ROS negative except as above. 10/26/22 - [place]: Impression: 1. Normal colon and terminal ileum mucos a 2. Diverticulosis 3. Internal hemorrhoids 11/11/22: Patient currently without any gastrointestinal complaints to include abdominal pain, nausea, vomiting, changes in bowel habits. No unintentional weight loss, although is trying for intentional weight loss by cutting down on sodas, chocolates etc. Findings of the colonoscopy reviewed with the patient. We also reviewed blood work and ultrasound that shows some evidence of fatty liver. Patient's BMI 33. 06/05/23: No gastrointestinal complaints. Visit set up to follow up on fatty liver. Pt has gained almost 7-8 lbs since the last visit. Overdue for lipid and T2DM screening. Cont to limit his etOH intake to 1-2 drinks per month. Labs reviewed. Fib-4: 0.51. PFSH Medical History Arthritis Diverticulitis GERD (gastroesophageal reflux disease) Hypertension Obstructive sleep apnea Surgical History History of epidermal inclusion cyst excision (06/06/17) Hx of colonoscopy Hx of removal of cyst Family History Father Diabetes Mother No problems noted. 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- [employer] Review of Systems Const All systems reviewed & are unremarkable except as noted in HPI and below Physical Exam Vital Signs: Last Vital Signs Pulse 67 06/05/23 15:47 BP 126/66 06/05/23 15:47 BMI result Body Mass Index 34.2 Gen appear: No acute distress, well nourished HEENT: no icterus, no cervical lymphadenopathy Chest: No overt resp distress CVS: S1/S2, regular Abd: soft, nontender, nondistended Psych: Stable affect, answering questions appropriately Neuro: A/Ox3 noted to move all extremities spontaneously Ext: no peripheral edema Assessment & Plan Assessment & Plan (1) Obesity: Code(s): E66.9 - Obesity, unspecified (2) Fatty liver: Code(s): K76.0 - Fatty (change of) liver, not elsewhere classified (3) Elevated liver transaminase level: Code(s): R74.01 - Elevation of levels of liver transaminase levels Plan 1. Obesity/fatty liver: Rare alcohol use. Hepatitis serology is negative from 2019. Reviewed that most likely nonalcoholic fatty liver disease in the setting of underlying obesity. Patient also has JACKIE. Unfortunately has gained more weight since last visit. Also overdue for lipid and diabetes screening. He was reassured that based on low Fib-4 score, unlikely to have advanced fibrosis however can certainly progress to it if WEBB remains unchecked. - Weight loss of at least 10% body weight over 6 months - At least moderate intensity activity x 150 mins/week - Management of DM and HLD as per guidelines if present - Minimize etOH, NSAIDs. - Pt will cont to follow up with PCP since no evidence of advanced liver disease at this time but encouraged to call us for any questions or concerns that may arise in future. Coding Level of Care Code Est Pt Level 4 (42266) Diagnoses Obesity E66.9 Fatty liver K76.0 Elevated liver transaminase level R74.01
[2023-06-05 15:47] VITALS: BP 126/66; PULSE 67; BMI 34.2
== END 2023-06-05 16:28 | disposition home or self-care (01) ==
PROVIDERS: PCP Family Medicine; Visit Provider Internal Medicine
DX: E66.9 Obesity, unspecified (principal); K76.0 Fatty (change of) liver, not elsewhere classified; R74.01 Elevation of levels of liver transaminase levels
CPT/HCPCS: 99214

== ENCOUNTER 2023-07-12 15:10 | Outpatient (AMB) | payer OTHER, SELFPAY ==
--- NOTE | 2023-07-12 15:26 | A.OFFVIS_ITS ---
Intake Vital Signs 07/12/23 15:28 Height 5 ft 10 in Weight 244 lb 2 oz BMI 35.0 BP 120/84 Blood Pressure Location Lt brachial Position Sitting Pulse 72 Pulse Source Pulse Oximeter Pulse Oximetry (%) 96 Oxygen Delivery Method Room Air Intake Visit Reasons: yr f/u with Fanny Irby - JACKIE-Confirmed Intake Note: Pt presents today for JACKIE fup no new sxs Allergies No Known Allergies [No Known Allergies*] Allergy (Verified 07/12/23 15:30) HPI HPI Comments History of Present Illness Details 37-yr-old male presents for follow-up of JACKIE on CPAP. Pt reports he was sick for couple of days and could not use CPAP. He usually sleeps well and wakes up rested when he uses CPAP. He gained about 13 lb over the the last 9 months. APAP compliance report (06/07/23-07/06/23) reveals APAP 5-20 cmH2O with max pressure of 12.9 cmH2O; overall usage of 63% with usage > 4 hours of 53%; and residual AHI of 0.6/hr. [facility] Medical History Arthritis GERD (gastroesophageal reflux disease) Diverticulitis Obstructive sleep apnea Hypertension Surgical History Hx of colonoscopy History of epidermal inclusion cyst excision (06/06/17) Hx of removal of cyst Family History Father Diabetes Mother No problems noted. Social History Household Members: Spouse and Children Alcohol intake: never Patient Tobacco Use Status: Never used Tobacco Current occupational status: employed Current occupation: [employer] Review of Systems Const All systems reviewed & are unremarkable except as noted in HPI and below Physical Exam Vital Signs: Last Vital Signs Pulse 72 07/12/23 15:28 BP 120/84 07/12/23 15:28 Pulse Ox 96 07/12/23 15:28 Oxygen Delivery Method Room Air 07/12/23 15:28 Assessment & Plan Assessment & Plan (1) Severe obstructive sleep apnea: Onset Date: ~06/16/20 Comment: Home sleep study: AHI 29.6/hr with O2 trish 85% Code(s): G47.33 - Obstructive sleep apnea (adult) (pediatric) Plan Continue APAP cmH2O nightly > 4 hours, as pt is experiencing good clinical effect. Clean machine routinely. Change PAP supplies routinely. Advised to call [facility] and request new tubing. Pt to notify us/respiratory homecare company with any concerns or question. Wt reduction advised. Coding Level of Care Code Est Pt Level 3 (18395) Diagnoses Severe obstructive sleep apnea G47.33
[2023-07-12 15:28] VITALS: BP 120/84; PULSE 72; O2SAT 96; BMI 35.0
== END 2023-07-12 15:39 | disposition home or self-care (01) ==
PROVIDERS: Visit Provider Nurse Practitioner Family
DX: G47.33 Obstructive sleep apnea (adult) (pediatric) (principal)
CPT/HCPCS: 99213

== ENCOUNTER → 2023-07-12 15:10 | Outpatient (BNVA) | payer OTHER, SELFPAY | PROVIDERS: Visit Provider Nurse Practitioner Family | DX: G47.33 Obstructive sleep apnea (adult) (pediatric) (principal) | CPT/HCPCS: 99212 ==

== ENCOUNTER → 2023-08-03 14:23 | Outpatient (BNVA) | payer OTHER, SELFPAY | PROVIDERS: PCP Family Medicine; Visit Provider Physician Assistant | DX: S01.21XA Laceration without foreign body of nose, initial encounter (principal); W20.8XXA Other cause of strike by thrown, projected or falling object, initial encounter | CPT/HCPCS: 99203 ==

== ENCOUNTER 2024-01-25 09:12 | Outpatient (REF) | payer OTHER, SELFPAY ==
[2024-01-25 10:41] LABS: Alanine Aminotransferase 27 U/L (0-40); Albumin Level 4.5 g/dL (3.5-5.0); Alkaline Phosphatase 55 U/L (39-117); Anion Gap 15 (12-20); Aspartate Amino Transferase 25 U/L (5-37); Bilirubin Direct 0.2 mg/dL (0.0-0.5); Bilirubin Total 0.5 mg/dL (0.0-1.0); Blood Urea Nitrogen 18 mg/dL (9-16); Calcium 9.7 mg/dL (8.4-10.2); Carbon Dioxide 26 mmol/L (22-29); Chloride 103 mmol/L (96-108); Estimated Glomerular Filt Rate > 60; Glucose Random 92 mg/dL (60-115); Potassium 3.7 mmol/L (3.3-5.1); Sodium 140 mmol/L (135-145); Total Protein 7.7 g/dL (6.5-8.0)
== END 2024-01-25 09:13 | disposition home or self-care (01) ==
LOC: HO.LAB 09:12
PROVIDERS: PCP Family Medicine; Visit Provider Family Medicine
DX: I10 Essential (primary) hypertension (principal); E78.5 Hyperlipidemia, unspecified
CPT/HCPCS: 36415; 80048; 80076

== ENCOUNTER 2024-03-28 06:45 | Outpatient (REF) | payer OTHER, SELFPAY ==
[2024-03-28 07:19] LABS: Anion Gap 14 (12-20); Blood Urea Nitrogen 16 mg/dL (9-16); Calcium 9.6 mg/dL (8.4-10.2); Carbon Dioxide 27 mmol/L (22-29); Chloride 102 mmol/L (96-108); Cholesterol 168 mg/dL (<200); Estimated Glomerular Filt Rate > 60; Glucose Random 99 mg/dL (60-115); HDL Cholesterol 36 mg/dL (>40); LDL Cholesterol Calculated 98 mg/dL (<100); Potassium 3.7 mmol/L (3.3-5.1); Sodium 139 mmol/L (135-145); Triglycerides 174 mg/dL (<150)
== END 2024-03-28 06:46 | disposition home or self-care (01) ==
LOC: HO.LAB 06:45
PROVIDERS: PCP Family Medicine; Visit Provider Family Medicine
DX: I10 Essential (primary) hypertension (principal); E78.5 Hyperlipidemia, unspecified
CPT/HCPCS: 36415; 80048; 80061

== ENCOUNTER 2024-04-18 09:59 | Outpatient (AMB) | payer OTHER, SELFPAY ==
--- NOTE | 2024-04-18 10:03 | MHC.OFFVIS ---
Vital Signs 04/18/24 10:17 Height 5 ft 10 in Weight 243 lb BMI 34.9 BP 131/63 Blood Pressure Location Lt brachial Position Sitting Pulse 61 Intake Visit Reasons: Cyst on Scalp Intake Note: multiple cyst in the scalp about 6 of them, biggest one about 5 yrs, had some removed in the past, increase in quantity and size, , minimal pain, denies redness, discharge, swelling or infections Occupational Rehabilitation Aide Required: No Accompanied by: Self / Same As Patient Allergies No Known Allergies [No Known Allergies*] Allergy (Verified 07/12/23 15:30) Medication List - Last Reconciled 04/18/24 by Jude Brothers MD blood pressure test kit-large As directed chlorthalidone 25 mg PO DAILY lisinopril 10 mg PO DAILY omega 5-bpj-fua-fish oil 300 mg (120 mg- 180mg)-1,000 mg caps PO HPI Comments Details: 38-year-old male patient with a previous history of Pilar cyst returning today with for new Pilar cyst throughout his scalp bilaterally. Largest located on the left parietal region is causing pressure on his scalp and causing some increased discomfort. He denies any bleeding or discharge from any of the sites. He is requesting excision of the enlarging Pilar cysts. [facility] Medical History Arthritis GERD (gastroesophageal reflux disease) Diverticulitis Obstructive sleep apnea Hypertension Surgical History Hx of colonoscopy History of epidermal inclusion cyst excision (06/06/17) Hx of removal of cyst Family History Father Diabetes Mother No problems noted. 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- [employer] Review of Systems Const All systems reviewed & are unremarkable except as noted in HPI and below Physical Exam Vital Signs: Last Vital Signs Pulse 61 04/18/24 10:17 BP 131/63 04/18/24 10:17 BMI result Body Mass Index 34.9 Const General: no acute distress Nutritional Appearance: well nourished Orientation/consciousness: patient oriented x3 Limitations: no limitations Resp Effort & Inspection: normal respiratory effort, no audible wheezes, no cough and no respiratory distress Skin General skin exam: no rashes or lesions noted Neuro General: patient oriented x3 Extrem General: Yes no clubbing, cyanosis or edema Assessment & Plan Assessment & Plan (1) Pilar cyst: Code(s): L72.11 - Pilar cyst Category: Medical Plan 38-year-old male patient presenting with multiple Pilar cysts of the scalp as noted above. He has requested excision of the lesions and after discussion of the procedure, risks, and alternatives, consents to the procedure. He will be scheduled as an office procedure under local anesthesia. Coding Level of Care Code Est Pt Level 4 (14003) Diagnoses Pilar cyst L72.11
[2024-04-18 10:17] VITALS: BP 131/63; PULSE 61; BMI 34.9
== END 2024-04-18 10:28 | disposition home or self-care (01) ==
PROVIDERS: PCP Family Medicine; Visit Provider Surgery
DX: L72.11 Pilar cyst (principal)
CPT/HCPCS: 99214

== ENCOUNTER → 2024-04-18 09:59 | Outpatient (BNVA) | payer OTHER, SELFPAY | PROVIDERS: PCP Family Medicine; Visit Provider Surgery | DX: L72.11 Pilar cyst (principal) | CPT/HCPCS: 99212 ==

== ENCOUNTER 2024-04-30 10:56 | Outpatient (REF) | payer OTHER, SELFPAY | END 2024-04-30 10:57 | disposition home or self-care (01) | LOC: HO.LNP 10:56 | PROVIDERS: PCP Family Medicine; Visit Provider Surgery | DX: L72.11 Pilar cyst (principal) | CPT/HCPCS: 11422; 11440; 88304; 88305 ==

== ENCOUNTER 2024-04-30 10:56 | Outpatient (AMB) | payer OTHER, SELFPAY ==
--- NOTE | 2024-04-30 11:03 | A.OFFVIS_ITS ---
Vital Signs 3 04/30/24 11:04 Height 5 ft 10 in Weight 242 lb 8.136 oz BMI 34.8 Pulse 62 Intake Visit Reasons: Excision Cyst on Scalp Intake Note: Patient is seen in office for office procedure, excision of multiple cyst of the scalp. Pt c/o: here for removal of multiple cyst of the head s/p: 05/07/24 @ 9:30 am Nuclear Equipment Sales Engineer Required: No Accompanied by: Self / Same As Patient Allergies No Known Allergies [No Known Allergies*] Allergy (Verified 04/30/24 11:54) HPI Comments Details: Patient returns today for excision of 5 Pilar cysts of the scalp [facility] Medical History Arthritis GERD (gastroesophageal reflux disease) Diverticulitis Obstructive sleep apnea Hypertension Surgical History Hx of colonoscopy History of epidermal inclusion cyst excision (06/06/17) Hx of removal of cyst Family History Father Diabetes Mother No problems noted. 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 1 cm Pilar cyst right temporal scalp 2. 1.5 cm Pilar cyst right occipital scalp 3. 1 cm Pilar cyst left occipital scalp 4. 2 cm Pilar cyst left frontal scalp 5. 0.5 cm epidermal inclusion cyst right forehead Office Procedures Excision Details: Preoperative diagnosis: Pilar cyst x5 Postoperative diagnosis: Same Procedure: Excision of Pilar cyst x5 Surgeon: Jude Brothers MD Resaw Carriage Operator: None Anesthesia: Lidocaine 1% with epinephrine Indications for procedure: 38-year-old male patient presenting with multiple Pilar cysts of the scalp which he has requested excision. Operative findings: Left frontal scalp with a 2 cm Pilar cyst, left forehead with a 0.5 cm cyst, right frontal scalp with a 1.5 cm cyst, right occipital scalp with a 1.5 cm cyst, and left occipital scalp with a 1.0 cm scalp cyst Specimen: Pilar cyst x5 Estimated blood loss: 5 mL Complications: None Procedure details: Patient was brought to the procedure room and placed in a supine position. The site of surgery was confirmed by the patient as noted above. The patient provided informed consent. Beginning in the right frontal scalp the skin was prepped with Betadine and draped in a sterile fashion. Local was infiltrated around the cyst. A small incision was then made over the cyst. A 2 cm Pilar cyst was identified and dissected free from the surrounding subcutaneous tissue. This was passed off the table and sent to pathology for further examination. Skin was then closed using a 3-0 Prolene suture. Attention was then directed to the right forehead skin lesion. Once again the skin was prepped with Betadine and draped in a sterile fashion. Local was infiltrated circumferentially. An elliptical incision was then made around the cyst in a transverse fashion. This was carried out through subcutaneous tissue and around the cyst wall. This was passed off the table and sent to pathology for further examination. Skin was then closed using an interrupted 5 0 nylon suture. Attention was then directed to the right temporal lesion. Once again the skin was prepped with Betadine and draped in sterile fashion. Local was infiltrated circumferentially around the lesion. Incision was made directly over the cyst carried out through subcutaneous tissue up to the cyst wall. Hemostat was then used to dissect the cyst from the surrounding subcutaneous tissue. This was passed off the table and sent to pathology for further examination. Skin was then closed using interrupted 3-0 Prolene sutures. Attention was then directed to the to posterior (occipital lesions). Skin was prepped with Betadine draped in a sterile fashion. Beginning right lesion skin was anesthetized with lidocaine and an incision made directly over the cyst. Blunt dissection was then used to dissect the cyst from the surrounding subcutaneous tissue. This was passed off the table and sent to pathology for further examination. Skin was then closed using an interrupted 5 0 nylon suture. In a similar fashion the left occipital lesion was prepped with Betadine and draped in a sterile fashion. Local was infiltrated around the lesion and an incision made directly over the cyst. The cyst was dissected free using a hemostat and passed off the table. The incision was closed using a 5 0 nylon suture. The patient tolerated the procedure well. He was discharged to home in stable condition. [id number]-[id number] face/ear/eyelid/nose/lip/mucous membrane <0.5cm 40043-Wdbhdiyr scalp/neck/hands/feet/genitalia 1.1cm-2cm Additional procedure code (CPT) needed Assessment & Plan Assessment & Plan (1) Pilar cyst: Code(s): L72.11 - Pilar cyst Category: Medical Plan Pilar cyst x5 of the scalp. He underwent excision today and tolerated the procedure well. He will return in 1 week for suture removal. Orders: Orders 2 Surgical Today L72.11 - Pilar cyst Coding Level of Care Code Procedure Only Diagnoses Pilar cyst L72.11 CPT Codes Scalp/Neck/Hands/Feet/Genetalia - CPT: 27316-Pofwbpfv scalp/neck/hands/feet/genitalia 1.1cm-2cm ([id number]) Face/Ear/Eyelid/Nose/Lip/Mucous Membrane - CPT: 85827-Cgvwnjnq face/ear/eyelid/nose/lip/mucous membrane <0.5cm ([id number])
[2024-04-30 11:04] VITALS: PULSE 62; BMI 34.8
== END 2024-04-30 11:55 | disposition home or self-care (01) ==
PROVIDERS: PCP Family Medicine; Visit Provider Surgery
DX: L72.11 Pilar cyst (principal)
CPT/HCPCS: 11422; 11440

== ENCOUNTER 2024-05-07 09:27 | Outpatient (AMB) | payer OTHER, SELFPAY ==
--- NOTE | 2024-05-07 09:29 | MHC.OFFVIS ---
Vital Signs 05/07/24 09:37 Height 5 ft 10 in Weight 245 lb BMI 35.2 BP 150/67 H Blood Pressure Location Lt brachial Position Sitting Pulse 67 Intake Visit Reasons: s/p excision of cyst on scalp Intake Note: Patient is seen in office for post office procedure, excision of multiple cyst of the scalp. Pt c/o: area sore, denies other concerns, sutures removed at visit Import Clerk Required: No Accompanied by: Self / Same As Patient Allergies No Known Allergies [No Known Allergies*] Allergy (Verified 05/07/24 09:37) HPI Comments Details: Patient returns 1 week following excision of several skin cyst the scalp. He tolerated the procedure well and denies any ongoing symptoms other than a minor soreness in the left side. He returns today for suture removal. Pathology reports are pending at the time of this dictation. [facility] Medical History Arthritis GERD (gastroesophageal reflux disease) Diverticulitis Obstructive sleep apnea Hypertension Surgical History Hx of colonoscopy History of epidermal inclusion cyst excision (06/06/17) Hx of removal of cyst Family History Father Diabetes Mother No problems noted. Social History Household Members: Spouse and Children Alcohol intake: never Patient Tobacco Use Status: Never used Tobacco Current occupational status: employed Current occupation: [employer]- [employer] Physical Exam Const General: no acute distress HEENT Other: Five scalp incisions are clean, dry, and intact. Sutures were removed and the wounds found to be well healed. No evidence of hematoma or seroma. Skin Other: Warm, dry, no rash Assessment & Plan Assessment & Plan (1) Pilar cyst: Code(s): L72.11 - Pilar cyst Category: Medical Plan 38-year-old male status post excision of Pilar cysts of the scalp. He tolerated the procedure well and his wounds have healed nicely. He should follow up as needed. Coding Level of Care Code Global (88854) Diagnoses Pilar cyst L72.11
[2024-05-07 09:37] VITALS: BP 150/67; PULSE 67; BMI 35.2
== END 2024-05-07 09:38 | disposition home or self-care (01) ==
PROVIDERS: PCP Family Medicine; Visit Provider Surgery
DX: L72.11 Pilar cyst (principal)
CPT/HCPCS: 99024

== ENCOUNTER → 2024-05-07 09:27 | Outpatient (BNVA) | payer OTHER, SELFPAY | PROVIDERS: PCP Family Medicine; Visit Provider Surgery | DX: Z48.817 Encounter for surgical aftercare following surgery on the skin and subcutaneous tissue (principal) | CPT/HCPCS: 99212 ==

== ENCOUNTER 2024-07-12 09:49 | Outpatient (AMB) | payer OTHER, SELFPAY ==
--- NOTE | 2024-07-12 09:48 | MHC.OFFVIS ---
Vital Signs 07/12/24 09:55 Height 5 ft 10 in Weight 242 lb 8 oz BMI 34.8 BP 142/63 H Blood Pressure Location Lt brachial Position Sitting Pulse 61 Intake Visit Reasons: cyst on scalp Intake Note: Patient is seen in office for a cyst of the scalp. Pt c/o: onw wk after suture removal notice a new cyst in the area, painful, denies discharge or on antbx Food Safety Technician Required: No Accompanied by: Self / Same As Patient Allergies No Known Allergies [No Known Allergies*] Allergy (Verified 07/12/24 09:49) HPI Comments Details: 38-year-old male patient with a previous history of Pilar cyst returning today with for new Pilar cyst located in the posterior scalp. This was noted soon after the previous excisions and now notes significant discomfort especially while in bed. He is requesting excision of this new Pilar cyst. He denies any bleeding or discharge the site. [facility] Medical History Arthritis GERD (gastroesophageal reflux disease) Diverticulitis Obstructive sleep apnea Hypertension Surgical History Hx of colonoscopy History of epidermal inclusion cyst excision (06/06/17) Hx of removal of cyst Family History Father Diabetes Mother No problems noted. 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 1.5 cm Pilar cyst, mobile within the subcutaneous tissue with no overlying skin change. Resp Effort & Inspection: normal respiratory effort, no audible wheezes, no cough and no respiratory distress Skin General skin exam: no rashes or lesions noted Neuro General: patient oriented x3 Extrem General: Yes no clubbing, cyanosis or edema Assessment & Plan Assessment & Plan (1) Pilar cyst: Code(s): L72.11 - Pilar cyst Category: Medical Plan 38-year-old male status post excision of Pilar cysts of the scalp presenting with new symptomatic Pilar cyst in the posterior scalp. This was noted soon after his previous excisions possibly in the same location. He reports significant discomfort associated with this lesion especially when in bed. I recommended excision under local anesthesia as an office based procedure. After discussion of the procedure, risks, and alternatives, he consents to the surgery. Coding Level of Care Code Est Pt Level 3 (56393) Diagnoses Pilar cyst L72.11
[2024-07-12 09:55] VITALS: BP 142/63; PULSE 61; BMI 34.8
== END 2024-07-12 10:01 | disposition home or self-care (01) ==
PROVIDERS: PCP Family Medicine; Visit Provider Surgery
DX: L72.11 Pilar cyst (principal)
CPT/HCPCS: 99213

== ENCOUNTER → 2024-07-12 09:49 | Outpatient (BNVA) | payer OTHER, SELFPAY | PROVIDERS: PCP Family Medicine; Visit Provider Surgery | DX: L72.11 Pilar cyst (principal) | CPT/HCPCS: 99212 ==

== ENCOUNTER 2024-07-16 15:29 | Outpatient (AMB) | payer OTHER, SELFPAY ==
--- NOTE | 2024-07-16 15:31 | MHC.OFFVIS ---
Vital Signs 07/16/24 15:57 Height 5 ft 10 in Weight 242 lb 8.136 oz BMI 34.8 Pulse 62 Intake Visit Reasons: excision Symptomatic Pilar Cyst in posterior scalp Intake Note: Patient is seen for office procedure, excision of pilar cyst of the scalp. Pt c/o: Trapeze Performer Required: No Accompanied by: Self / Same As Patient Allergies No Known Allergies [No Known Allergies*] Allergy (Verified 07/16/24 15:57) HPI Comments Details: Patient returns for excision of Pilar cyst of the posterior scalp. He denies any new changes. [facility] Medical History Arthritis GERD (gastroesophageal reflux disease) Diverticulitis Obstructive sleep apnea Hypertension Surgical History Hx of colonoscopy History of epidermal inclusion cyst excision (06/06/17) Hx of removal of cyst Family History Father Diabetes Mother No problems noted. 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 Pilar cyst posterior scalp Resp Effort & Inspection: normal respiratory effort, no audible wheezes, no cough and no respiratory distress Skin General skin exam: no rashes or lesions noted Neuro General: patient oriented x3 Extrem General: Yes no clubbing, cyanosis or edema Office Procedures Excision Details: Preoperative diagnosis: Pilar cyst posterior scalp Postoperative diagnosis: Same Procedure: Excision of Pilar cyst posterior scalp Surgeon: Jude Brothers MD Data Services Developer: None Anesthesia: Local 1% lidocaine with epinephrine Indications for procedure: New Pilar cyst in the posterior scalp midline, 1.5 cm diameter Operative findings: 1.5 cm diameter Pilar cyst Specimen: Pilar cyst posterior scalp Estimated blood loss: 2 mL Complications: None Procedure details: Patient was brought to the procedure room and placed in a prone position. The site of surgery was confirmed by the patient in the posterior scalp. After assuring informed consent the skin was prepped with Betadine and draped in a sterile fashion. An elliptical incision was then made over the palpable Pilar cyst. The incision was carried out through subcutaneous tissue and down to the cyst wall. Blunt dissection was then used to dissect the cyst wall from the surrounding subcutaneous tissue. The lesion was removed and sent to pathology for further examination. Skin was then closed using interrupted 3-0 nylon sutures. Bacitracin ointment was then applied. The patient tolerated the procedure well. He was discharged to home in stable condition. [id number]-[id number] scalp/neck/hands/feet/genitalia 1.1cm-2cm Procedure code (CPT) selection complete Assessment & Plan Assessment & Plan (1) Pilar cyst: Code(s): L72.11 - Pilar cyst Category: Medical Plan Patient presents today for excision of Pilar cyst of the posterior scalp. He tolerated the procedure well and will return in 1 week for suture removal. Orders: Orders Surgical Today L72.11 - Pilar cyst Coding Level of Care Code Procedure Only Diagnoses Pilar cyst L72.11 CPT Codes Scalp/Neck/Hands/Feet/Genetalia - CPT: 94934-Edjbhgzj scalp/neck/hands/feet/genitalia 1.1cm-2cm ([id number])
[2024-07-16 15:57] VITALS: PULSE 62; BMI 34.8
== END 2024-07-16 16:00 | disposition home or self-care (01) ==
PROVIDERS: PCP Family Medicine; Visit Provider Surgery
DX: L72.11 Pilar cyst (principal)
CPT/HCPCS: 11422

== ENCOUNTER 2024-07-16 15:29 | Outpatient (REF) | payer OTHER, SELFPAY | END 2024-07-16 15:30 | disposition home or self-care (01) | LOC: HO.LNP 15:29 | PROVIDERS: PCP Family Medicine; Visit Provider Surgery | DX: L72.11 Pilar cyst (principal) | CPT/HCPCS: 11422; 88304 ==

== ENCOUNTER 2024-07-23 10:04 | Outpatient (AMB) | payer OTHER, SELFPAY ==
--- NOTE | 2024-07-23 10:06 | MHC.OFFVIS ---
Vital Signs 07/23/24 10:07 Height 5 ft 10 in Weight 242 lb BMI 34.7 Intake Visit Reasons: yr f/u with Fanny Irby Intake Note: Patient presents for follow up Allergies No Known Allergies [No Known Allergies*] Allergy (Verified 07/23/24 10:09) Medication List - Last Reconciled 07/23/24 by Eliezer Fink PA-C blood pressure test kit-large As directed chlorthalidone 25 mg PO DAILY lisinopril 20 mg PO DAILY omega 5-iyu-ynu-fish oil 300 mg (120 mg- 180mg)-1,000 mg caps PO HPI Comments Details: 37-yr-old male presents for follow-up of JACKIE on CPAP. Pt reports sheryl has asthma and he could not use CPAP due to caring for her a few nights. He usually sleeps well and wakes up rested when he uses CPAP. He lost about 6 lb over the the last 12 months. CPAP compliance report (04/07/24-07/06/24) reveals APAP 5-20 cmH2O with max pressure of 12.9 cmH2O; overall usage of 73% with usage > 4 hours of 73%; and residual AHI of 0.54/hr. His diet is good, he avoids fast food and is mindful of opting for healthier snacks. Drinks 60 oz of water daily. Denies restless leg syndrome, headaches and parasomnias, does toss and turn alot. He cleans his equipment, changes filters, and fills the reservoir with distilled water as needed. [facility] Medical History Arthritis GERD (gastroesophageal reflux disease) Diverticulitis Obstructive sleep apnea Hypertension Surgical History Hx of colonoscopy History of epidermal inclusion cyst excision (06/06/17) Hx of removal of cyst Family History Father Diabetes Mother No problems noted. 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- [employer] Review of Systems Const All systems reviewed & are unremarkable except as noted in HPI and below Physical Exam Vital Signs: BMI result Body Mass Index 34.7 Const General: cooperative, comfortable and no acute distress Nutritional Appearance: obese Orientation/consciousness: patient oriented x3 HEENT Head: Yes normal to inspection Face and sinus: Yes face symmetric Mouth: tongue normal Eyes General: appearance normal, both eyes and all related structures Pupils: Equal, round and reactive pupils present Neck Neck: Yes full ROM and Yes supple Resp Effort & Inspection: normal respiratory effort and able to speak in complete sentences Neuro General: patient oriented x3, moves all extremities and Normal light touch and pain sensation Cranial nerves: Yes CN's II-XII intact bilaterally, Yes Facial sensation intact/muscles of mastication intact, Yes Equal, round and reactive pupils present, Yes Normal accommodation reflex present, Yes Bilaterally intact EOM present, Yes Normal facial strength present, Yes Midline tongue present and Yes Ability to bilaterally elevate shoulders present Gait exam (Neuro): Normal gait present Motor exam (neuro): 5/5 motor strength present throughout Deep tendon reflexes (DTR's): Right triceps reflex intensity grade: 2+, Left triceps reflex intensity grade: 2+, Rt Biceps (C5, C6): 2+, Left biceps reflex intensity grade: 2+, Right brachioradialis reflex intensity grade: 2+, Left brachioradialis reflex intensity grade: 2+, Right patellar reflex intensity grade: 2+, Left patellar reflex intensity grade: 2+, Right ankle reflex intensity grade: 2+ and Left ankle reflex intensity grade: 2+ Coordination: [id number] test normal Assessment & Plan Assessment & Plan (1) Severe obstructive sleep apnea: Onset Date: ~06/16/20 Comment: Home sleep study: AHI 29.6/hr with O2 trish 85% Code(s): G47.33 - Obstructive sleep apnea (adult) (pediatric) Category: Medical Plan: Continue using APAP 5-20 cmH2O device nightly as patient is experiencing good clinical effects. Continue to eat a healthy diet, monitor BP, and exercise 3-5 times per week, ensuring you are elevating your heart rate for 20 min or as tolerable. Plan Pt seen by Eliezer BLACKMAN in coordination w/ myself MILI Johnson, I agree with the above documentation and plan. Coding Level of Care Code Est Pt Level 3 (22519) Diagnoses Severe obstructive sleep apnea G47.33
[2024-07-23 10:07] VITALS: BMI 34.7
== END 2024-07-23 10:46 | disposition home or self-care (01) ==
PROVIDERS: Absent Provider Psychiatry & Neurology Neurology; PCP Family Medicine; Visit Provider Psychiatry & Neurology Neurology
DX: G47.33 Obstructive sleep apnea (adult) (pediatric) (principal)
CPT/HCPCS: 99213

== ENCOUNTER → 2024-07-23 10:04 | Outpatient (BNVA) | payer OTHER, SELFPAY | PROVIDERS: Absent Provider Psychiatry & Neurology Neurology; PCP Family Medicine; Visit Provider Psychiatry & Neurology Neurology | DX: L72.11 Pilar cyst (principal); G47.33 Obstructive sleep apnea (adult) (pediatric) | CPT/HCPCS: 99212 ==

== ENCOUNTER 2024-07-23 14:35 | Outpatient (AMB) | payer OTHER, SELFPAY ==
--- NOTE | 2024-07-23 14:43 | A.OFFVIS_ITS ---
Vital Signs 07/23/24 14:45 Height 5 ft 10 in Weight 240 lb 4.862 oz BMI 34.5 Pulse 62 Intake Visit Reasons: s/p exc cyst scalp Intake Note: Patient is seen in office for post op assessment post excision of scalp cyst. 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 He tolerated the procedure well and returns today for suture removal. [facility] Medical History Arthritis GERD (gastroesophageal reflux disease) Diverticulitis Obstructive sleep apnea Hypertension Surgical History Hx of colonoscopy History of epidermal inclusion cyst excision (06/06/17) Hx of removal of cyst Family History Father Diabetes Mother No problems noted. 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 Two sutures removed and the wounds found to be well healed. Assessment & Plan Assessment & Plan (1) Pilar cyst: Code(s): L72.11 - Pilar cyst Category: Medical Plan 38-year-old male patient returning for suture removal after excision of a Pilar cyst. He tolerated the procedure well the wounds are healing nicely. He should follow up as needed. Coding Level of Care Code Global (99936) Diagnoses Pilar cyst L72.11
[2024-07-23 14:45] VITALS: PULSE 62; BMI 34.5
== END 2024-07-23 15:10 | disposition home or self-care (01) ==
PROVIDERS: PCP Family Medicine; Visit Provider Surgery
DX: L72.11 Pilar cyst (principal)
CPT/HCPCS: 99024

== ENCOUNTER 2024-08-05 13:29 | Outpatient (AMB) | payer OTHER, SELFPAY ==
--- NOTE | 2024-08-05 13:39 | MHC.OFFVIS ---
Vital Signs 08/05/24 13:42 Height 5 ft 10 in Weight 242 lb 8.136 oz BMI 34.8 BP 117/72 Blood Pressure Location Rt brachial Position Sitting Pulse 62 Intake Visit Reasons: Bleeding internal hemorrhoids Intake Note: Gunnar presents in the office as a follow up for bleeding internal hemorrhoids. CC: states that he is no longer having any bleeding, he states that at the moment he is feeling good! Allergies No Known Allergies [No Known Allergies*] Allergy (Verified 08/05/24 13:42) HPI Comments Details: 36 y.o M with hx of recent diverticulitis who is presenting for follow-up after colonoscopy. 09/13/2022: Was seen in ER on 08/25 for LLQ pain associated with diarrhea and scant blood in stool x 3 days prior to presentation. Was discharged on levaquin and flagyl x 7 days. LLQ pain resolved in a few days but now has epigastric pain with loss of appetite. No N,V. Stools are now normal in consistency. Has also noted some weight loss in the last one month, has not documented it but feels that clothes are looser now. No fam of IBD or CRC. No prior hx of episodes. Does not smoke or drink. ROS: 10 point ROS negative except as above. 10/26/22 - [place]: Impression: 1. Normal colon and terminal ileum mucosa 2. Diverticulosis 3. Internal hemorrhoids 11/11/22: Patient currently without any gastrointestinal complaints to include abdominal pain, nausea, vomiting, changes in bowel habits. No unintentional weight loss, although is trying for intentional weight loss by cutting down on sodas, chocolates etc. Findings of the colonoscopy reviewed with the patient. We also reviewed blood work and ultrasound that shows some evidence of fatty liver. Patient's BMI 33. 06/05/23: No gastrointestinal complaints. Visit set up to follow up on fatty liver. Pt has gained almost 7-8 lbs since the last visit. Overdue for lipid and T2DM screening. Cont to limit his etOH intake to 1-2 drinks per month. Labs reviewed. Fib-4: 0.51. 08/05/24: Here for follow up requested for rectal bleeding that occurred over the last few months. However, now pt has not had any bleeding or discomfort x 1 month since using the hydrocort suppositories x 10 days. No more prolapsing sensation or discomfort while sitting down. Feels well. Liver labs due. [facility] Medical History Arthritis GERD (gastroesophageal reflux disease) Diverticulitis Obstructive sleep apnea Hypertension Surgical History Hx of colonoscopy History of epidermal inclusion cyst excision (06/06/17) Hx of removal of cyst Family History Father Diabetes Mother No problems noted. 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- [employer] Review of Systems Const All systems reviewed & are unremarkable except as noted in HPI and below Physical Exam Vital Signs: Last Vital Signs Pulse 62 08/05/24 13:42 BP 117/72 08/05/24 13:42 BMI result Body Mass Index 34.8 No apparent distress Nonicteric Abdomen soft, nondistended Alert and oriented x3, normal gait Assessment & Plan Assessment & Plan (1) Bright red rectal bleeding: Code(s): K62.5 - Hemorrhage of anus and rectum Category: Medical (2) Fatty liver: Code(s): K76.0 - Fatty (change of) liver, not elsewhere classified Category: Medical (3) Obesity: Code(s): E66.9 - Obesity, unspecified Category: Medical Plan 1. Rectal bleeding 2/2 hemorrhoids. Resolved. [place] from 2022 reassuring. 2. Fatty liver: Low risk for progression. Will get updated MELD labs for our records. Based on fib 4 score of 0.51 and absence of other risk factors (such as T2DM, age >50, BMI >50,) patient falls under low risk for progression, and therefore this time is being discharged back to PCP's care for obesity management and prevention of cardiovascular disease. Follow up PRN Orders: Orders Prothrombin Time INR Today K62.5 - Hemorrhage of anus and rectum, K76.0 - Fatty (change of) liver, not elsewhere classified Complete Blood Count no Diff Today K62.5 - Hemorrhage of anus and rectum, K76.0 - Fatty (change of) liver, not elsewhere classified Comprehensive Met. Panel Today K62.5 - Hemorrhage of anus and rectum, K76.0 - Fatty (change of) liver, not elsewhere classified Coding Level of Care Code Est Pt Level 4 (69063) Diagnoses Bright red rectal bleeding K62.5 Fatty liver K76.0 Obesity E66.9
[2024-08-05 13:42] VITALS: BP 117/72; PULSE 62; BMI 34.8
== END 2024-08-05 14:35 | disposition home or self-care (01) ==
PROVIDERS: PCP Family Medicine; Visit Provider Internal Medicine
DX: K62.5 Hemorrhage of anus and rectum (principal); K76.0 Fatty (change of) liver, not elsewhere classified; E66.9 Obesity, unspecified
CPT/HCPCS: 99214

== ENCOUNTER → 2024-08-05 13:29 | Outpatient (BNVA) | payer OTHER, SELFPAY | PROVIDERS: PCP Family Medicine; Visit Provider Internal Medicine | DX: K62.5 Hemorrhage of anus and rectum (principal); K76.0 Fatty (change of) liver, not elsewhere classified; E66.9 Obesity, unspecified; Z68.34 Body mass index [BMI] 34.0-34.9, adult | CPT/HCPCS: 99212 ==

== ENCOUNTER 2024-08-13 11:14 | Outpatient (REF) | payer OTHER, SELFPAY ==
[2024-08-13 13:25] LABS: Hematocrit 41.4 % (42.0-52.0); Hemoglobin 14.6 g/dl (14.0-18.0); Mean Corpuscular HGB Conc 35.3 g/dl (31.0-36.0); Mean Corpuscular Hemoglobin 28.2 pg (27.0-33.0); Mean Corpuscular Volume 80.1 fL (80.0-98.0); Mean Platelet Volume 10.8 fL (9.4-12.4); Platelet Count 313 X10*3/uL (160-400); Red Blood Count 5.17 X10*6/uL (4.60-5.80); Red Cell Distribution Width 12.6 % (11.0-16.0); White Blood Count 7.2 X10*3/uL (4.8-10.8)
[2024-08-13 13:33] LABS: Prothrombin Time 11.5 SEC (10.9-12.4)
[2024-08-13 13:42] LABS: Alanine Aminotransferase 29 U/L (0-40); Albumin Level 4.7 g/dL (3.5-5.0); Alkaline Phosphatase 58 U/L (39-117); Anion Gap 15 (12-20); Aspartate Amino Transferase 30 U/L (5-37); Bilirubin Total 0.4 mg/dL (0.0-1.0); Blood Urea Nitrogen 16 mg/dL (9-16); Calcium 9.8 mg/dL (8.4-10.2); Carbon Dioxide 29 mmol/L (22-29); Chloride 99 mmol/L (96-108); Estimated Glomerular Filt Rate > 60; Glucose Random 91 mg/dL (60-115); Potassium 3.8 mmol/L (3.3-5.1); Sodium 139 mmol/L (135-145); Total Protein 8.4 g/dL (6.5-8.0)
== END 2024-08-13 11:15 | disposition home or self-care (01) ==
LOC: HO.HHCL 11:14
PROVIDERS: Internal Medicine; Visit Provider Family Medicine
DX: K76.0 Fatty (change of) liver, not elsewhere classified (principal); K62.5 Hemorrhage of anus and rectum; I10 Essential (primary) hypertension
CPT/HCPCS: 36415; 80053; 85027; 85610

== ENCOUNTER 2024-10-26 06:48 | Emergency (ER) | payer OTHER, SELFPAY ==
--- NOTE | ~2024-10-26 | XR_ITS ---
CLINICAL HISTORY: pain, unable to apply pressure 2 view right tibia-fibula Comparison: None Findings No fractures or dislocations. No joint effusion. No significant arthritic change. IMPRESSION: 1. No acute findings. No fracture or destructive lesion. This document has been electronically signed by: Yeny Mendoza MD on 10/26/2024 07:52:57
[2024-10-26 07:06] VITALS: BP 124/80; PULSE 90; RESP 18; TEMP 36.9; O2SAT 97; BMI 35.4
--- OUTSIDE RECORDS SUMMARY | 2024-10-26 07:35 | XMS_ITS | Encounter Summary ---
Author Organization [employer] Address [address] [place] [address] [place] [address] Care Team Providers Care Sales Service Executive Name Role Phone Jyoti Berry MD Primary Care Provider [phone]- [phone] Keysha Jarvis PharmD Unavailable [phone] Jude Brothers MD Unavailable [phone] Radha Quispe MD Unavailable Molly Trevino Unavailable Reason for Visit * Reason Comments Med Refill Encounter Details Date Type Department Care Team (Late st Contact Info) Description 09/27/2024 Refill [facility] MEDICINE [address] [place], [place] [phone] Jyoti Berry MD [address] [place], [place] [phone] External hemorrhoids Social History Tobacco Use Types Packs/Day Years Used Date Smoking Tobacco: Never Passive Smoke Exposure: Never Smokeless Tobacco: Never Alcohol Use Standard Drinks/Week Comments Never 0 (1 standard drink = 0.6 oz pur e alcohol) Depression Answer Date Recorded Patient Health Questionnaire-9 Score 4 03/27/2024 Patient Health Questionnaire-9 Score 4 03/27/2024 Last PHQ-9: Questionnaire Data Not on file 0 03/27/2024 Housing Stability Answer Date Recorded What is your housing situation today? I have ulisses rojas 03/19/[address] you li ve. Do you have problems with any of the following? None of the above 03/19/2024 Food Insecurity Answer Date Recorded Within the past 12 months, y ou worried that your food would run out before you got money to buy more: Sometimes True 2023 Within the past 12 months,th e food you bought just didn't last and you didn't have enough money to get more: Sometimes True 03/19/2024 Transportation Answer Date Recorded In the past 12 months, has l ack of transportation kept you from medical appts, meetings, work or from getting things needed for daily living? No 03/19/2024 Utilities Answer Date Recorded In the past 12 months, has t he electric, gas, oil or water company threatened to shut off services in your home? No 03/19/2024 Depression Answer Date Recorded Patient Health Questionnaire-2 Score 2 03/27/2024 Internet Access Answer Date Recorded Internet Access Q1 Yes 05/06/2024 Internet Access Q2 Not on file 05/06/2024 Education Answer Date Recorded What is the highest level of school you have completed or the highest degree you have received? 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 Author Blood Pressure < 140/90 Blood Pressure 116/70( 025 11:12 AM EST) No Keysha Tavares PharmD documented as of this encounter Visit Diagnoses Diagnosis External hemorrhoids External hemorrhoids without mention of complication documented in this encounter Additional Health Concerns Assessment Noted Time PHQ-9 Depression Total Score: 4 03/27/20 24 2:25 PM EDT documented as of this encounter Care Teams Sales Service Executive Relationship Specialty Start Date End Date Jyoti Berry MD [address] [place] [address] PCP - General Family Medicine 09/04/18 Keysha Jarvis, PharmD [address] [place] [phone] Pharmacist Internal Medicine 01/05/23 Jude Brothers MD [address] [place] [id number] General Surgery 07/24/24 Radha Quispe MD 100 [facility] [address] [place] [address] Sleep Medicine 07/29/24 Molly Trevino [address] [place] [phone] Gastroenterology 08/06/24 documented as of this encounter
--- OUTSIDE RECORDS SUMMARY | 2024-10-26 07:35 | XMS_ITS | Encounter Summary ---
Author Organization [employer] Address [address] [place] [address] Care Team Providers Care Patient Care Provider Name Role Phone Jyoti Berry MD Primary Care Provider [phone]- [phone] Keysha Jarvis PharmD Unavailable [phone] Jude Brothers MD Unavailable [phone] Radha Quispe MD Unavailable Molly Trevino Unavailable Reason for Referral * Consultation (Routine) - Authorized Specialty Diagnoses / Procedures Referred By Bharath cast Referred To Contact Nutrition Diagnoses BMI 35.0-35.9,adult Jyoti Berry MD [address] [place] [phone] Phone: tel: fax: Referral ID Status Reason Start Date Expiration Date Visits Requested Visits Authorized [id number] Authorized Consult and Treat 09/30/2024 09/30/2025 1 1 Reason for Visit * Reason Comments follow up * Consultation (Routine) - Authorized Specialty Diagnoses / Procedures Referred By Bharath cast Referred To Contact Pharmacy Diagnoses Essential hypertension Jyoti Berry MD [address] [place] [id number] Phone: tel: fax: Referral ID Status Reason Start Date Expiration Date Visits Requested Visits Authorized [id number] Authorized Consult and Treat 07/01/2024 07/01/2025 6 6 Encounter Details Date Type Department Care Team (Late st Contact Info) Description 09/30/2024 11:00 AM EST Office Visit [facility] MEDICINE [address] [facility] [place] [address] Jyoti Berry MD [address] [facility] [place] [address] Essential hypertension (Primary Dx); Constipation, unspecified constipation type; Seborrheic dermatitis; Geographic tongue; Class 2 obesity due to excess calories without serious comorbidity with body mass index (BMI) of 35.0 to 35.9 in adult; BMI 35.0-35.9,adult; Dietary counseling; Exercise counseling Social History Tobacco Use Types Packs/Day Years [...] 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 Not on file Not on file documented as of this encounter Last Filed Vital Signs Vital Sign Reading Time Taken Comments Blood Pressure 116/70 09/30/2024 11:12 AM EST Pulse 69 09/30/2024 11:01 AM EST Temperature 37.2 ??C (98.9 ??F) 09/30/2024 11:[address] Respiratory Rate 20 09/30/2024 11:01 AM EST Oxygen Saturation 97% 09/30/2024 11:01 AM EST Inhaled Oxygen Concentration - - Weight 113 kg (248 lb 12.8 oz) 09/30/2024 11:01 AM EST Height 177.8 cm (5' 10 ) 09/30/2024 11:01 AM EST Body Mass Index 35.7 09/30/2024 11:01 AM EST documented in this encounter Progress Notes * Jyoti Berry MD - 09/30/2024 11:00 AM EST Subjective Patient ID: Gunnar Bazzi is a 39 y.o. male with PMHx of hypertension, transaminitis and hyperlipidemia who presents for follow up. Pt follows with CDTM for hypertension. Per last note on 08/13/24, complete pending BMP lab work; patient agreed. Continue current therapy and monitoring. Pt reports his BP's has been good at home running about 120's systolic. He notes he did take his medication this morning. He notes he has not been eating well at home and is interested in seeing a correspondence dictator. Due for Flu and COVID vaccines. Declines both today. Review of Systems Constitutional: Negative for fever and unexpected weight change. Respiratory: Negative for shortness of breath. Cardiovascular: Negative for chest pain. Gastrointestinal: Negative for abdominal pain. Genitourinary: Negative for difficulty urinating. Objective Visit Vitals BP 116/70 Pulse 69 Temp 98.9 ??F (37.2 ??C) (Temporal) Resp 20 Body mass index is 35.7 kg/m??. Physical Exam Constitutional: Appearance: Normal appearance. Eyes: Extraocular Movements: Extraocular movements intact. Cardiovascular: Rate and Rhythm: Normal rate and regular rhythm. Heart sounds: Normal heart sounds. Pulmonary: Effort: Pulmonary effort is normal. Breath sounds: Normal breath sounds. Neurological: Mental Status: He is alert. Mental status is at baseline. Psychiatric: Behavior: Behavior normal. No visits with results within 1 Month(s) from this visit. Latest known visit with results is: Orders Only on 08/13/2024 Component Date Value White Blood Count 08/13/2024 7.2 Red Blood Count 08/13/2024 5.17 Hemoglobin 08/13/2024 14.6 Hematocrit 08/13/2024 41.4 (L) Mean Corpuscular Volume 08/13/2024 80.1 Mean Corpuscular Hemoglo* 08/13/2024 28.2 Mean Corpuscular HGB Conc 08/13/2024 35.3 Red Cell Distribution Wi* 08/13/2024 12.6 Platelet Count 08/13/2024 313 Mean Platelet Volume 08/13/2024 10.8 NRBC Pct Auto 08/13/2024 0.0 NRBC Abs Auto 08/13/2024 0.000 Prothrombin Time 08/13/2024 11.5 INTERNATIONAL NORM RATIO 08/13/2024 1.0 Sodium 08/13/2024 139 Potassium 08/13/2024 3.8 Chloride 08/13/2024 99 Carbon Dioxide 08/13/2024 29 Anion Gap 08/13/2024 15 Urea Nitrogen (BUN) 08/13/2024 16 Creatinine, Serum 08/13/2024 0.91 Estimated Glomerular Alber* 08/13/2024 >60 Glucose 08/13/2024 91 Calcium 08/13/2024 9.8 Bilirubin, Total 08/13/2024 0.4 Aspartate Amino Transfer* 08/13/2024 30 Alanine Aminotransferase 08/13/2024 29 Total Protein 08/13/2024 8.4 (H) Albumin Level 08/13/2024 4.7 Alkaline Phosphatase 08/13/2024 58 Problem List Items Addressed This Visit Essential hypertension - Primary -Blood pressure is at goal -Continue lifestyle modifications -Lisinopril increased to 20mg once daily by [facility] on 07/09/24 - Continue chlorthalidone 25mg once daily Relevant Medications chlorthalidone (Hygroton) 25 MG tablet lisinopril (Prinivil) 20 MG tablet Constipation Occasional constipation, no acute concerns. Has relief with Fiber. -refilled psyllium (Metamucil) 58.6 % powder 09/30/24 Relevant Medications psyllium (Metamucil) 58.6 % powder Seborrheic dermatitis -prescribed hydrocortisone 1 % ointment 09/30/24 Geographic tongue Reassurance given. Class 2 obesity due to excess calories without serious comorbidity with body mass index (BMI) of 35.0 to 35.9 in adult Discussed weight, diet, exercise with patient in relation to health conditions. Used motivational interviewing to illicit change talk and established initial goals with patient. -referred to Tower Director 09/30/24 Dietary counseling Dietary Recommendations: Fruits, vegetables, whole grains, protein foods, and fat-free or low-fat dairy products are healthychoices. Eat different types of protein foods in your diet. This can include seafood, lean meats, poultry, beans, peas, lentils, nuts, seeds, soy products, and eggs. Limit foods and beverages higher in added sugars, saturated fat, and sodium. Exercise counseling Exercise Recommendations: At least 150 minutes of moderate-intensity physical activity per week, or an equivalent combinationof moderate- and vigorous-intensity activity Other Visit Diagnoses BMI 35.0-35.9,adult Relevant Orders Referral to Nutrition Therapy Follow up in about 27 weeks (around 04/07/2025) for annual evaluation. I, Haven Palacios, am serving as a scribe to document services personally performed by Dr. Alicea, based on the patient's response to questions by provider and providers statements to me. documented in this encounter Miscellaneous Notes * Assessment & Plan Note - Haven Palacios - 09/30/2024 11:19 AM ESTAssociated Problem(s): Geographic tongue Reassurance given. * Assessment & Plan Note - Daynaeva Philip - 09/30/2024 11:19 AM ESTAssociated Problem(s): Seborrheic dermatitis -prescribed hydrocortisone 1 % ointment 09/30/24 * Assessment & Plan Note - Haven Palacios - 09/30/2024 11:18 AM ESTAssociated Problem(s): Essential hypertension -Blood pressure is at goal -Continue lifestyle modifications -Lisinopril increased to 20mg once daily by [facility] on 07/09/24 - Continue chlorthalidone 25mg once daily * Assessment & Plan Note - Haven Palacios - 09/30/2024 11:15 AM ESTAssociated Problem(s): Constipation Occasional constipation, no acute concerns. Has relief with Fiber. -refilled psyllium (Metamucil) 58.6 % powder 09/30/24 * Assessment & Plan Note - Daynaeva Barksdaleer - 09/30/2024 11:11 AM ESTAssociated Problem(s): Exercise counseling Exercise Recommendations: At least 150 minutes of moderate-intensity physical activity per week, or an equivalent combinationof moderate- and vigorous-intensity activity * Assessment & Plan Note - Haven Barksdaleer - 09/30/2024 11:11 AM ESTAssociated Problem(s): Dietary counseling Dietary Recommendations: Fruits, vegetables, whole grains, protein foods, and fat-free or low-fat dairy products are healthychoices. Eat different types of protein foods in your diet. This can include seafood, lean meats, poultry, beans, peas, lentils, nuts, seeds, soy products, and eggs. Limit foods and beverages higher in added sugars, saturated fat, and sodium. * Assessment & Plan Note - Haven Palacios - 09/30/2024 11:11 AM ESTAssociated Problem(s): Class 2 obesity due to excess calories without serious comorbidity with bodymass index (BMI) of 35.0 to 35.9 in adult Discussed weight, diet, exercise with patient in relation to health conditions. Used motivational interviewing to illicit change talk and established initial goals with patient. -referred to Tower Director 09/30/24 documented in this encounter Plan of Treatment Upcoming Encounters Date Type Department Care Team (Late st Contact Info) Description 10/29/2024 11:00 AM EST Nutrition [facility] DIABETES/NUTRITION [address] [place] [address] [place] [address] 11/19/2024 11:00 AM EDT Medication Management [facility] MEDICINE [address] [place] [address] Keysah Jarvis, PharmD [address] [place] [address] Scheduled Referrals Name Type Priority Associated Diagnoses Orde r Schedule Referral to Nutrition Therapy Outpatient Referral Routine BMI 35.0-35.9,adult Expected: 09/30/2024 (Approximate), Expires: 09/30/2025 documented as of this encounter Goals Goal Patient Goal Type Associated Problems Recent Progress Patient-Stated? Author Blood Pressure < 140/90 Blood Pressure 116/70( 025 11:12 AM EST) No Keysha Tavares PharmD documented as of this encounter Visit Diagnoses Diagnosis Essential hypertension- Primary Unspecified essential hypertension Constipation, unspecified constipation type Seborrheic dermatitis Unspecified seborrheic dermatitis Geographic tongue Class 2 obesity due to excess calories without serious comorbidity with body mass index (BMI) of 35.0 to 35.9 in adult BMI 35.0-35.9,adult Dietary counseling Dietary surveillance and counseling Exercise counseling documented in this encounter Additional Health Concerns Assessment Noted Time PHQ-9 Depression Total Score: 4 03/27/20 24 2:25 PM EDT documented as of this encounter Care Teams Patient Care Provider Relationship Specialty Start Date End Date Jyoti Berry MD [address] [place] [address] PCP - General Family Medicine 09/04/18 Keysha Jarvis, PharmD [address] [place] [address] Pharmacist Internal Medicine 01/05/23 Jude Brothers MD [address] [place] [phone] General Surgery 07/24/24 Radha Quispe MD 100 [facility] [address] [place] [address] Sleep Medicine 07/29/24 Molly Trevino [address] [place] [id number] Gastroenterology 08/06/24 documented as of this encounter
--- OUTSIDE RECORDS SUMMARY | 2024-10-26 07:35 | XMS_ITS | Encounter Summary ---
Author Organization [employer] Address [address] [place] [address] [place] [address] Care Team Providers Care Pile Driver Operator Helper Name Role Phone Jyoti Berry MD Primary Care Provider + [phone] Keysha Jarvis PharmD Unavailable [phone]- [phone] Jude Brothers MD Unavailable [phone] Radha Quispe MD Unavailable Molly Trevino Unavailable Reason for Visit * Reason Onset Date Comments Med Refill 10/04/2024 Encounter Details Date Type Department Care Team (Late st Contact Info) Description 10/04/2024 Refill [facility] MEDICINE [address] [place] [address] Jyoti Berry MD [address] [place], [place] [phone] Essential hypertension Social History Tobacco Use Types Packs/Day Years [...] 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 on file Not on file documented as of this encounter Plan of Treatment Upcoming Encounters Date Type Department Care Team (Late st Contact Info) Description 10/29/2024 11:00 AM EST Nutrition [facility] DIABETES/NUTRITION [address] [place] [address] Raegan Flores, JO [address] [place] [address] 11/19/2024 11:00 AM EDT Medication Management [facility] MEDICINE [address] [place] [address] Keysha Jarvis, Silvino [address] [place] [address] documented as of this encounter Goals Goal Patient Goal Type Associated Problems Recent Progress Patient-Stated? Author Blood Pressure < 140/90 Blood Pressure 116/70( 025 11:12 AM EST) No Keysha Tavares PharmD documented as of this encounter Visit Diagnoses Diagnosis Essential hypertension Unspecified essential hypertension documented in this encounter Additional Health Concerns Assessment Noted Time PHQ-9 Depression Total Score: 4 03/27/20 24 2:25 PM EDT documented as of this encounter Care Teams Pile Driver Operator Helper Relationship Specialty Start Date End Date Jyoti Berry MD [address] [place] [address] PCP - General Family Medicine 09/04/18 Keysha Jarvis, CodeyD [address] [place] [address] Pharmacist Internal Medicine 01/05/23 Jude Brothers MD [address] [place] [address] General Surgery 07/24/24 Radha Quispe MD [address] [address] Sleep Medicine 07/29/24 Molly Trevino [address] [place] [address] Gastroenterology 08/06/24 documented as of this encounter
--- OUTSIDE RECORDS SUMMARY | 2024-10-26 07:35 | XMS_ITS | Encounter Summary ---
Author Organization [employer] Address [address] [place] [address] Care Team Providers Care Elevator Conductor Name Role Phone Jyoti Berry MD Primary Care Provider + [phone] Keysha Jarvis PharmD Unavailable [phone]- [phone] Jude Brothers MD Unavailable [phone] Radha Quispe MD Unavailable Molly Trevino Unavailable Encounter Details Date Type Department Care Team (Latest Contact Info) Description 08/12/2019 Abstract [facility] CONVERSIONS Dental, Provider, DDS Social History Tobacco Use Types Packs/Day Years Used Date Smoking Tobacco: Never Assessed Sex and Gender Information Value Date Recorded Sex Assigned at Male 07/04/2022 10:19 AM EDT Legal Sex Male 10:19 AM EDT Gender Identity Male 07/04/2022 10:19 AM EDT Sexual Orientation Choose not to disclose 2021 10:19 AM EDT documented as of this encounter Plan of Treatment Upcoming Encounters Date Type Department Care Team (Late st Contact Info) Description 10/29/2024 11:00 AM EST Nutrition [facility] DIABETES/NUTRITION [address] [place], [place] [phone] Raegan Flores, JO [address] [place], [place] [phone] 11/19/2024 11:00 AM EDT Medication Management [facility] MEDICINE [address] [place], [place] [phone] Keysha Jarvis, PharmD 230 [place] [address] documented as of this encounter Visit Diagnoses Not on filedocumented in this encounter Care Teams Elevator Conductor Relationship Specialty Start Date End Date Jyoti Berry MD 230 [place] [address] PCP - General Family Medicine 09/04/18 Keysha Jarvis, PharmD [address] [place] [address] Pharmacist Internal Medicine 01/05/23 Jude Brothers MD [address] [place] [address] General Surgery 07/24/24 Radha Quispe MD [address] [place] [address] [address] [place] [address] Sleep Medicine 07/29/24 Molly Trevino [address] [place] [address] Gastroenterology 08/06/24 documented as of this encounter
--- OUTSIDE RECORDS SUMMARY | 2024-10-26 07:35 | XMS_ITS | Encounter Summary ---
Author Organization [employer] Address [address] [place] [address] [place], [place] [address] Care Team Providers Care Crayon Grader Name Role Phone Jyoti Berry MD Primary Care Provider +- [phone] Keysha Jarvis PharmD Unavailable [phone]- [phone] Jude Brothers MD Unavailable [phone] Radha Quispe MD Unavailable Molly Trevino Unavailable Reason for Referral * Consultation (Routine) - Closed Specialty Diagnoses / Procedures Referred By Contvanessa cast Referred To Contact General Surgery Diagnoses Epidermoid cyst of skin of scalp Jyoti Berry MD [address] [place] [address] Phone: tel: fax: Jude Brothers MD [address] [place] [address] [address] [place] [address] Phone: tel: fax: Referral ID Status Reason Start Date Expiration Date V isits Requested Visits Authorized [id number] Closed Specialty Services Required 04/01/2024 04/01/2025 1 1 Encounter Details Date Type Department Care Team (Late st Contact Info) Description 04/01/2024 Orders Only [facility] MEDICINE [address] [place] [address] Jyoti Berry MD [address] [place], [place] [phone] Epidermoid cyst of skin of scalp (Primary Dx); Dyslipidemia Social History Tobacco Use Types Packs/Day Years [...] Recorded Patient Health Questionnaire-2 Score 2 03/27/2024 Education Answer Date Recorded What is the [...] 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 file Not on file Not on file documented as of this encounter Plan of Treatment Upcoming Encounters Date Type Department Care Team (Late st Contact Info) Description 10/29/2024 11:00 AM EST Nutrition [facility] DIABETES/NUTRITION [address] [place] [address] Raegan Flores, JO [address] [place] [address] 11/19/2024 11:00 AM EDT Medication Management [facility] MEDICINE [address] [place] [address] Keysha Jarvis PharmD 230 [place] [address] Scheduled Referrals Name Type Priority Associated Diagnoses Orde r Schedule Referral to General Surgery Outpatient Referral Routine Epidermoid cyst of skin of scalp Expected: 04/01/2024 (Approximate), Expires: 04/01/2025 documented as of this encounter Goals Goal Patient Goal Type Associated Problems Recent Progress Patient-Stated? Author Blood Pressure < 140/90 Blood Pressure 116/70( 025 11:12 AM EST) No Keysha Tavares PharmD documented as of this encounter Visit Diagnoses Diagnosis Epidermoid cyst of skin of scalp- Primary Dyslipidemia Other and unspecified hyperlipidemia documented in this encounter Additional Health Concerns Assessment Noted Time PHQ-9 Depression Total Score: 4 03/27/20 24 2:25 PM EDT documented as of this encounter Care Teams Crayon Grader Relationship Specialty Start Date End Date Jyoti Berry MD [address] [place] [address] PCP - General Family Medicine 09/04/18 Keysha Jarvis, PharmD [address] [place] [address] Pharmacist Internal Medicine 01/05/23 Jude Brothers MD [address] [place] [address] 3[address] [place] [address] General Surgery 07/24/24 Radha Quispe MD [address] [place] [address] Sleep Medicine 07/29/24 Molly Trevino [address]rd [place] [address] Gastroenterology 08/06/24 documented as of this encounter
--- OUTSIDE RECORDS SUMMARY | 2024-10-26 07:35 | XMS_ITS | Encounter Summary ---
Author Organization [email or web address] Address [address] [place] [address] Care Team Providers Care Calibration Engineer Name Role Phone Jyoti Berry MD Primary Care Provider +- [phone] Keysha Jarvis PharmD Unavailable [phone] Jude Brothers MD Unavailable [phone] Radha Quispe MD Unavailable Molly Trevino Unavailable Reason for Visit * Reason Onset Date Comments Med Refill 05/29/2023 Encounter Details Date Type Department Care Team (Late st Contact Info) Description 05/29/2023 Refill [facility] MEDICINE [address] [place], [place] [phone] Jyoti Berry MD [address] [place], [place] [phone] Essential hypertension Social History Tobacco Use Types Packs/Day Years Used Date Smoking Tobacco: Never Passive Smoke Exposure: Never Smokeless Tobacco: Never Alcohol Use Standard Drinks/Week Comments Never 0 (1 standard drink = 0.6 oz pur e alcohol) PHQ-2 Answer Date Recorded Patient Health Questionnaire-2 Score 0 11/07/2022 Depression Answer Date Recorded Patient Health Questionnaire-2 Score 0 11/07/2022 Education Answer Date Recorded What is the [...] 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 Author Blood Pressure < 140/90 Blood Pressure 116/70( 025 11:12 AM EST) No Keysha Tavares PharmD documented as of this encounter Visit Diagnoses Diagnosis Essential hypertension Unspecified essential hypertension documented in this encounter Care Teams Calibration Engineer Relationship Specialty Start Date End Date Jyoti Berry MD [address] [place] [address] PCP - General Family Medicine 09/04/18 Keysha Jarvis, PharmD [address] [place] [address] Pharmacist Internal Medicine 01/05/23 Jude Brothers MD [address] [place] [address] Drive 3rd [place] [address] General Surgery 07/24/24 Radha Quispe MD [address] [address] Sleep Medicine 07/29/24 Molly Trevino [address]rd [place] [address] Gastroenterology 08/06/24 documented as of this encounter
--- OUTSIDE RECORDS SUMMARY | 2024-10-26 07:35 | XMS_ITS | Encounter Summary ---
Author Organization [employer] Address [address] [place] [address] Care Team Providers Care Superintendent Plant Protection Name Role Phone Jyoti Berry MD Primary Care Provider + [phone] Keysha Jarvis PharmD Unavailable [phone] Jude Brothers MD Unavailable [phone] Radha Quispe MD Unavailable Molly Trevino Unavailable Encounter Details Date Type Department Care Team (Late st Contact Info) Description 01/12/2023 Abstract [facility] MEDICINE [address] [place], [place] [phone] Jyoti Berry MD [address] [place], [place] [phone] Social History Tobacco Use Types Packs/Day Years [...] 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 No / Unsure 01/05/2023 9:15 AM EDT documented as of this encounter Plan of Treatment Upcoming Encounters Date Type Department Care Team (Late st Contact Info) Description 10/29/2024 11:00 AM EST Nutrition [facility] DIABETES/NUTRITION [address] [place] [address] Raegan Flores, RD 230 [place] [address] 11/19/2024 11:00 AM EDT Medication Management [facility] MEDICINE [address] [place] [address] Keysha Jarvis PharmD [address] [place] [address] documented as of this encounter Goals Goal Patient Goal Type Associated Problems Recent Progress Patient-Stated? Author Blood Pressure < 140/90 Blood Pressure 116/70( 025 11:12 AM EST) No Keysha Tavares PharmD documented as of this encounter Procedures Procedure Name Priority Date/Time Associated Diagnosis Comments HEPATITIS C ANTIBODY (EXTERNAL RESULTS ONLY) Routine 04/20/2022 3:00 PM EDT documented in this encounter Results * Hepatitis C Antibody (04/20/2022 3:00 PM EDT) Hepatitis C Antibody Nonreactive Blood 04/20/2022 3:00 PM EDT Jyoti Berry MD POINT OF CARE TEST ENTER/E DIT ORDERABLES Final Result documented in this encounter Visit Diagnoses Not on filedocumented in this encounter Care Teams Superintendent Plant Protection Relationship Specialty Start Date End Date Jyoti Berry MD [address] [place] [address] PCP - General Family Medicine 09/04/18 Keysha Jarvis, Silvino [address] [place] [address] Pharmacist Internal Medicine 01/05/23 Jude Brothers MD [address] [place] [address] General Surgery 07/24/24 Radha Quispe MD 100 [facility] [address] [place] [address] Sleep Medicine 07/29/24 Molly Trevino [address] [place] [address] Gastroenterology 08/06/24 documented as of this encounter
--- OUTSIDE RECORDS SUMMARY | 2024-10-26 07:35 | XMS_ITS | Encounter Summary ---
Author Organization [employer] Address [address] [place] [address] 7 [place] [address] Care Team Providers Care Construction Pit Worker Name Role Phone Jyoti Berry MD Primary Care Provider [phone]- [phone] Keysha Jarvis PharmD Unavailable [phone]- [phone] Jude Brothers MD Unavailable [phone] Radha Quispe MD Unavailable Molly Trevino Unavailable Reason for Visit * Reason Onset Date Comments Medication Question 09/30/2024 Encounter Details Date Type Department Care Team (Late st Contact Info) Description 09/30/2024 Telephone [facility] MEDICINE [address] [place] [address] Annette Alcocer RN Medication Question Social History Tobacco Use Types Packs/Day Years [...] 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 Pharmacy asking for clarification on instructions (should it be 23 min or is it 2-3 min). Advised will send message to PCP. documented in this encounter Plan of Treatment Upcoming Encounters Date Type Department Care Team (Late st Contact Info) Description 10/29/2024 11:00 AM EST Nutrition [facility] DIABETES/NUTRITION 230 [place], [place] [phone] Raegan Flores RD 230 [place], [place] [phone] 11/19/2024 11:00 AM EDT Medication Management [facility] MEDICINE [address] [place] [address] Keysha Jarvis PharmD 230 [place] [address] documented as of this encounter Goals Goal Patient Goal Type Associated Problems Recent Progress Patient-Stated? Author Blood Pressure < 140/90 Blood Pressure 116/70( 025 11:12 AM EST) No Keysha Tavares PharmD documented as of this encounter Visit Diagnoses Not on filedocumented in this encounter Additional Health Concerns Assessment Noted Time PHQ-9 Depression Total Score: 4 03/27/20 24 2:25 PM EDT documented as of this encounter Care Teams Construction Pit Worker Relationship Specialty Start Date End Date Jyoti Berry MD [address] [place] [address] PCP - General Family Medicine 09/04/18 Keysha Jarvis PharmD [address] [place] [address] Pharmacist Internal Medicine 01/05/23 Jude Brothers MD [address] [place] [address] General Surgery 07/24/24 Radha Quispe MD 100 [facility] [address] [place] [address] Sleep Medicine 07/29/24 Molly Trevino [address] [place] [address] Gastroenterology 08/06/24 documented as of this encounter
--- OUTSIDE RECORDS SUMMARY | 2024-10-26 07:35 | XMS_ITS | Encounter Summary ---
Author Organization [employer] Address [address] [facility] 7t [place] [address] Care Team Providers Care Mending Carrier Name Role Phone Jyoti Berry MD Primary Care Provider + [phone] Keysha Jarvis PharmD Unavailable [phone] Jude Brothers MD Unavailable [phone] Radha Quispe MD Unavailable Molly Trevino Unavailable Encounter Details Date Type Department Care Team (Late st Contact Info) Description 10/01/2024 Orders Only [facility] 230 [place], [place] [phone] Jyoti Berry MD 230 [place], [place] [phone] Generalized seborrheic dermatitis (Primary Dx) Social History Tobacco Use Types Packs/Day Years [...] 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 Author Blood Pressure < 140/90 Blood Pressure 116/70( 025 11:12 AM EST) No Keysha Tavares PharmD documented as of this encounter Visit Diagnoses Diagnosis Generalized seborrheic dermatitis- Primary documented in this encounter Additional Health Concerns Assessment Noted Time PHQ-9 Depression Total Score: 4 03/27/20 24 2:25 PM EDT documented as of this encounter Care Teams Mending Carrier Relationship Specialty Start Date End Date Jyoti Berry MD 230 [place] [address] PCP - General Family Medicine 09/04/18 Keysha Jarvis, CodeyD [address] [place] [address] Pharmacist Internal Medicine 01/05/23 Jude Brothers MD [address] [place] [address] General Surgery 07/24/24 Radha Quispe MD [address] [address] Sleep Medicine 07/29/24 Molly Trevino [address] [place] [address] Gastroenterology 08/06/24 documented as of this encounter"
--- OUTSIDE RECORDS SUMMARY | 2024-10-26 07:35 | XMS_ITS | Encounter Summary ---
Author Organization [employer] Address [address] [place] [address] 7 [place] [address] Care Team Providers Care Special Education Administrator Name Role Phone Jyoti Berry MD Primary Care Provider + [phone] Keysha Jarvis PharmD Unavailable [phone]- [phone] Jude Brothers MD Unavailable [phone] Radha Quispe MD Unavailable Molly Trevino Unavailable Encounter Details Date Type Department Care Team (Late st Contact Info) Description 06/04/2024 Telephone [facility] MEDICINE 230 [place], [place] [phone] Keysha Jarvis, PharmD 230 [place] [address] Social History Tobacco Use Types Packs/Day Years [...] 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 Referral has been pended to this TC note. Thank you! documented in this encounter Plan of Treatment Upcoming Encounters Date Type Department Care Team (Late st Contact Info) Description 10/29/2024 11:00 AM EST Nutrition [facility] DIABETES/NUTRITION 230 [place] [address] [place], [place] [phone] 11/19/2024 11:00 AM EDT Medication Management [facility] MEDICINE 230 [place] [address] Keysha Jarvis PharmD 230 [place] [address] documented as of this encounter Goals Goal Patient Goal Type Associated Problems Recent Progress Patient-Stated? Author Blood Pressure < 140/90 Blood Pressure 116/70( 025 11:12 AM EST) No Keysha Tavares PharmD documented as of this encounter Visit Diagnoses Diagnosis Essential hypertension- Primary Unspecified essential hypertension documented in this encounter Additional Health Concerns Assessment Noted Time PHQ-9 Depression Total Score: 4 03/27/20 24 2:25 PM EDT documented as of this encounter Care Teams Special Education Administrator Relationship Specialty Start Date End Date Jyoti Berry MD [address] [place] [address] PCP - General Family Medicine 09/04/18 Keysha Jarvis, PharmD [address] [place] [address] Pharmacist Internal Medicine 01/05/23 Jude Brothers MD [address] [place] [address] General Surgery 07/24/24 Radha Quispe MD 100 [facility] [address] [place] [address] Sleep Medicine 07/29/24 Molly Trevino [address] [place] [address] Gastroenterology 08/06/24 documented as of this encounter
--- NOTE | 2024-10-26 07:54 | ED_ITS ---
HPI - Extremity Injury (Lower) General Chief Complaint: Extremity Injury, Lower Stated Complaint: leg pain/inj Time Seen by Provider: 10/26/24 07:32 Source: patient Mode of arrival: ambulatory Limitations: no limitations History of Present Illness ED Provider: RAGHAV OCONNELL PA-C HPI Narrative: 39 year old male with pmhx significant for HTN presents to the ED today for evaluation of right ankle pain x1 week. Admits to history of Achilles tendonitis in his RLE. He follows with his PCP for this. He is not currently being treated with any steroids. Admits to flare up of tendonitis like pain to the back of his right ankle. He has been resting his RLE for the past week and using crutches that he had at home. Reports bumping the back of his ankle on a table yesterday which may have aggravated his pain. Reports waking up around 0130 this morning due to continued pain in the back of his right ankle, radiating up towards his calf. He has been taking motrin and tylenol intermittently over the past week with minimal relief. Denies hx gout however does take a thiazide diuretic for his HTN. No hx DM. Denies fever, chills, numbness/tingling/weakness of the RLE. No recent travel or long car rides, cp, sob, or palpitations. Related Data Home Medications ?Medication ?Instructions ?Recorded ?Confirmed chlorthalidone 25 mg tablet 25 mg PO DAILY 09/22/20 07/23/24 blood pressure test kit-large #1 ea 11/11/22 07/23/24 omega-3 300 mg-dha 120 mg-epa 180 cap PO 04/18/24 07/23/24 mg-fish oil 1,000 mg capsule lisinopril 20 mg tablet 20 mg PO DAILY 08/05/24 Previous Rx's ?Medication ?Instructions ?Recorded naproxen 500 mg tablet 500 mg PO Q12H PRN pain (scale 10/26/24 score 1-3) #20 tabs prednisone 50 mg tablet 50 mg PO DAILY 4 days #4 tabs 10/26/24 Allergies Allergy/AdvReac Type Severity Reaction Status Date / Time No Known Allergies Allergy Verified 10/26/24 07:09 [No Known Allergies*] Review of Systems 2 Review of Systems: Constitutional: No fever, chills, fatigue, night sweats, weight changes ENT/Mouth: No ear pain, hearing loss, nasal congestion, sinus pain, rhinorrhea, sore throat Eyes: No eye pain, swelling, redness, vision changes, discharge Cardio: No chest pain, palpitations, SUAREZ, orthopnea, peripheral edema Pulm: No SOB, cough, sputum, wheezing, dyspnea, hemoptysis GI: No nausea, vomiting, hematemesis, abdominal pain, diarrhea, constipation, hematochezia, melena : No irregular bleeding, dysuria, frequency, urgency, hesitancy, hematuria, flank pain, urinary flow changes, urinary incontinence or retention MSK: No back pain, neck pain, joint pain, myalgias, +right ankle pain Skin: No lesions, rashes Neuro: No weakness, numbness, paresthesias, LOC, dizziness, headache Psych: No anxiety/panic, depression, SI/HI, AH/VH All other systems reviewed and are negative. [facility] Past Medical History Attestation statement: The following information was validated with the patient. Source: old records reviewed and nursing notes reviewed Medical History Arthritis GERD (gastroesophageal reflux disease) Diverticulitis Obstructive sleep apnea Hypertension Surgical History Hx of colonoscopy History of epidermal inclusion cyst excision (06/06/17) Hx of removal of cyst Family History Family History Father Diabetes Mother No problems noted. Social History Social History Household Members: Spouse and Children Alcohol intake: never Patient Tobacco Use Status: Never used Tobacco Smoked in Last 30 Days: No Use of substances other than those prescribed or required for medical reasons: No Advance Directives: No Advance Directives Information Provided: No Current occupational status: employed Current occupation: [employer]- [employer] Physical Exam 2 Vital Signs: Vital Signs: Last Vital Signs Temp 98.4 F 10/26/24 07:06 Pulse 90 10/26/24 07:06 Resp 18 10/26/24 07:06 BP 124/80 10/26/24 07:06 Pulse Ox 97 10/26/24 07:06 O2 Del Method Room Air 10/26/24 07:06 BMI result Body Mass Index 35.4 vital signs stable General: Well appearing, in no acute distress. Skin: Warm, dry, intact. No rashes or lesions. Head: Normocephalic, atraumatic. EENT: Hearing is intact b/l. Conjunctiva clear. PERRLA. EOM intact. Moist mucous membranes.? Cardiac: Chest wall symmetric. RRR Lungs: Normal respiratory effort without accessory muscle use. CTA bilaterally Ext: +RLE w/o obvious erythema to right ankle/ posterior lower leg. minimal swelling to ankle. FROM intact to right ankle and all toes. pain on dorsi flexion. ttp along posterior and medial aspect of ankle primarily along Achilles tendon. no warmth. no calf tenderness. negative porter test. ambulating with limping gait. 2+ dp/pt pulse intact. Neuro: AOx3. Normal speech. Course Course Course Narrative: 822 -- xr right tib/fib without acute abnormality. blood work pending. treated with toradol/ prednisone. 09 -- CBC without leukocytosis or left shift. Normocytic anemia, hemoglobin 13.5, hematocrit 37.9. I do not have concern for hemarthrosis. Chemistry without acute electrolyte abnormality requiring intervention. No STEPHANIE. Uric acid elevated 8.7, likely secondary to thiazide diuretic. Will treat for gout v tendonitis. exam is not concerning for achilles tendon rupture, porter test negative. Prednisone and naproxen sent to pharmacy for treatment. I did advise patient to continue home meds however he will need to follow up with PCP regarding antihypertensive regimen. Patient has remained stable throughout ED visit today. Discussed worrisome signs and symptoms and when to return to the ED. All questions answered at this time. Patient is agreeable with disposition and stable for discharge. Medications Administered Discontinued Medications Generic Name Dose Route Start Last Admin Trade Name Freq PRN Reason Stop Dose Admin Ketorolac Tromethamine 30 mg 10/26/24 08:12 10/26/24 08:41 Ketorolac Tromethamine 30 Mg/Ml Vial IM 10/26/24 08:13 30 mg ONCE ONE Administration Prednisone 40 mg 10/26/24 08:12 10/26/24 08:41 Prednisone 20 Mg Tablet PO 10/26/24 08:13 40 mg ONCE ONE Administration Medical Decision Making Medical Decision Making MDM Narrative: 39 year old male with pmhx significant for HTN presents to the ED today for evaluation of right ankle pain x1 week. vital signs stable, not hypoxic or tachycardic. afebrile. he is nontoxic appearing and in NAD. on exam of RLE, no obvious erythema to right ankle/ posterior lower leg. minimal swelling to ankle. FROM intact to ight ankle and all toes. pain on dorsi flexion. ttp along posterior and medial aspect of ankle primarily along Achilles tendon. no warmth. no calf tenderness. negative porter test. ambulating with limping gait. 2+ dp/pt pulse intact. Differential diagnosis includes msk sprain/ strain, Achilles tendonitis, Achilles tendon rupture, gout v pseuogout. presentation not consistent w/ dvt, nv compromise, threat to limb, compartment syndrome. Imaging obtained prior to my assumption of care. Basic labs/ uric acid ordered. Plan for pain control w/ toradol, prednisone. Differential Diagnosis Differential Diagnoses: The differential diagnosis associated with the presentation includes as above. Admission/Observation not indicated. Lab Data MDM Lab Attestation statement: I reviewed the patient's lab results. as above. 10/26/24 08:24 10/26/24 08:24 Labs: Lab Results 10/26/24 Range/Units 08:24 WBC 7.5 (4.8-10.8) X10*3/uL RBC 4.76 (4.60-5.80) X10*6/uL Hgb 13.5 L (14.0-18.0) g/dl Hct 37.9 L (42.0-52.0) % MCV 79.6 L (80.0-98.0) fL MCH 28.4 (27.0-33.0) pg MCHC 35.6 (31.0-36.0) g/dl RDW 12.6 (11.0-16.0) % Plt Count 296 (160-400) X10*3/uL MPV 10.0 (9.4-12.4) fL Immature Gran % (Auto) 0.4 (0.0-0.4) % Neut % (Auto) 65.1 (45-73) % Lymph % (Auto) 22.6 (20-40) % Brantley % (Auto) 9.8 (2-11) % Eos % (Auto) 1.3 (0-4) % Baso % (Auto) 0.8 (0-2) % Lymph # (Auto) 1.7 (1.2-4.9) X10*3/uL Brantley # (Auto) 0.7 (0.1-1.2) X10*3/uL Eos # (Auto) 0.1 (0.0-0.4) X10*3/uL Baso # (Auto) 0.1 (0.0-0.2) X10*3/uL Abs Immat Gran (auto) 0.03 (0.00-0.03) X10*3/uL Absolute Neuts (auto) 4.9 (2.0-8.3) x10*3/uL Absolute Nucleated RBC 0.000 (0.0-0.012) X10*3/uL Nucleated RBC % (auto) 0.0 (0.0-0.2) /100WBC Sodium 139 (135-145) mmol/L Potassium 3.9 (3.3-5.1) mmol/L Chloride 105 (96-108) mmol/L Carbon Dioxide 26 (22-29) mmol/L Anion Gap 12 (12-20) BUN 19 H (9-16) mg/dL Creatinine 0.88 (0.5-1.4) mg/dL Estim Creat Clear Calc 144.0 Estimated GFR > 60 Random Glucose 98 (60-115) mg/dL Uric Acid 8.7 H (3.4-7.0) mg/dL Calcium 9.4 (8.4-10.2) mg/dL Magnesium 1.9 (1.6-2.6) mg/dL Total Bilirubin 0.4 (0.0-1.0) mg/dL AST 24 (5-37) U/L ALT 24 (0-40) U/L Alkaline Phosphatase 63 (39-117) U/L Total Protein 7.8 (6.5-8.0) g/dL Albumin 4.1 (3.5-5.0) g/dL Independent Interpretation I performed an independent interpretation of an: Plain X-Ray Interpretation: xr right tib/fib without acute fracture. Radiology Impression Discussion of test interpretation with radiology: I have reviewed the radiologist's reading. Radiologist Impression: Procedure(s): XR tibia fibula RT 2V Accession Number(s): [id number] cc: Jyoti Berry MD; Easton Odonnell MD~ CLINICAL HISTORY: pain, unable to apply pressure 2 view right tibia-fibula Comparison: None Findings No fractures or dislocations. No joint effusion. No significant arthritic change. IMPRESSION: 1. No acute findings. No fracture or destructive lesion. This document has been electronically signed by: Yeny Mendoza MD on 10/26/2024 07:52:57 External Record Review External record reviewed: Inpatient record Prescription Management I considered prescription management with: Pain Medication and Other (prednisone) Chronic Conditions Patient?s care impacted by: Hypertension Social Determinants Patient?s care significantly limited by Social Determinants of Health including: Other Social Determinant of Health Critical Care Time Critical Care Time Critical Care Time: No Discharge Plan Discharge Clinical Impression: Gout Patient Disposition: Home, Self-Care Instructions: Low Purine Diet (ED), Gout (ED) Additional Instructions: As discussed, your blood work shows elevated uric acid levels consistent with gout attack. Treatment for this is with anti-inflammatory medications and steroids. Naproxen as an anti-inflammatory pain medication that has been sent to your pharmacy for treatment. Do not take this with other NSAIDs such as Motrin as this can cause increased risk of GI bleeding. Prednisone is a steroid that has been sent to your pharmacy. Take this for the next 4 days, starting tomorrow as you already received a dose in the ED today. As discussed, you are elevated uric acid may be attributable to your blood pressure medications. Please follow up with your primary care provider as these medications may need to be changed. You may apply an Celio wrap to your right ankle to help compress the area. Make sure you are elevating the right foot above heart level to help with any swelling. Return to the ED with any new or worsening symptoms. In the case of an emergency call 911. Prescriptions: New prednisone 50 mg tablet 50 mg PO DAILY 4 Days Qty: 4 0RF naproxen 500 mg tablet 500 mg PO Q12H PRN (Reason: pain (scale score 1-3)) Qty: 20 0RF No Action chlorthalidone 25 mg tablet 25 mg PO DAILY (DME) blood pressure test kit-large Kit See Rx Instructions .ROUTE BID Qty: 1 Rx Instructions: As directed omega [id number]-[id number] oil 300 mg (120 mg- 180mg)-1,000 mg capsule PO lisinopril 20 mg tablet 20 mg PO DAILY Referrals: Jyoti Berry MD [Primary Care Provider] - Print Language: Upper Sorbian
[2024-10-26 08:28] LABS: MANUAL DIFF FLAG NO
[2024-10-26 08:34] LABS: Basophils Absolute Auto 0.1 X10*3/uL (0.0-0.2); Basophils Percent Auto 0.8 % (0-2); Eosinophils Absolute Auto 0.1 X10*3/uL (0.0-0.4); Eosinophils Percent Auto 1.3 % (0-4); Hematocrit 37.9 % (42.0-52.0); Hemoglobin 13.5 g/dl (14.0-18.0); Imm Gran Abs Auto 0.03 X10*3/uL (0.00-0.03); Imm Gran Pct Auto 0.4 % (0.0-0.4); Lymphocytes Absolute Auto 1.7 X10*3/uL (1.2-4.9); Lymphocytes Percent Auto 22.6 % (20-40); Mean Corpuscular HGB Conc 35.6 g/dl (31.0-36.0); Mean Corpuscular Hemoglobin 28.4 pg (27.0-33.0); Mean Corpuscular Volume 79.6 fL (80.0-98.0); Monocytes Absolute Auto 0.7 X10*3/uL (0.1-1.2); Monocytes Percent Auto 9.8 % (2-11); Neutrophils Absolute Auto 4.9 x10*3/uL (2.0-8.3); Neutrophils Percent Auto 65.1 % (45-73); Platelet Count 296 X10*3/uL (160-400); Red Blood Count 4.76 X10*6/uL (4.60-5.80); Red Cell Distribution Width 12.6 % (11.0-16.0); White Blood Count 7.5 X10*3/uL (4.8-10.8)
[2024-10-26] MEDS: predniSONE 20 MG TABLET 40 MG PO (08:41)
[2024-10-26] MEDS: Ketorolac Tromethamine 30 MG/ML VIAL IM (08:41)
[2024-10-26 08:46] LABS: Alanine Aminotransferase 24 U/L (0-40); Albumin Level 4.1 g/dL (3.5-5.0); Alkaline Phosphatase 63 U/L (39-117); Anion Gap 12 (12-20); Aspartate Amino Transferase 24 U/L (5-37); Bilirubin Total 0.4 mg/dL (0.0-1.0); Blood Urea Nitrogen 19 mg/dL (9-16); Calcium 9.4 mg/dL (8.4-10.2); Carbon Dioxide 26 mmol/L (22-29); Chloride 105 mmol/L (96-108); Estimated Glomerular Filt Rate > 60; Glucose Random 98 mg/dL (60-115); Magnesium 1.9 mg/dL (1.6-2.6); Potassium 3.9 mmol/L (3.3-5.1); Sodium 139 mmol/L (135-145); Total Protein 7.8 g/dL (6.5-8.0); Uric Acid 8.7 mg/dL (3.4-7.0)
[2024-10-26 09:13] VITALS: BP 120/65; PULSE 72; RESP 14; TEMP 36.5; O2SAT 98
[2024-10-26 09:37] VITALS: BP 120/65; PULSE 72; RESP 14; TEMP 36.5; O2SAT 98
== END 2024-10-26 09:37 | disposition home or self-care (01) ==
PROVIDERS: Physician Assistant Medical; Emergency Provider Emergency Medicine; PCP Family Medicine
DX: M10.9 Gout, unspecified (principal); M25.571 Pain in right ankle and joints of right foot; I10 Essential (primary) hypertension; G47.33 Obstructive sleep apnea (adult) (pediatric); Z79.899 Other long term (current) drug therapy
CPT/HCPCS: 36415; 73590; 80053; 83735; 84550; 85025; 96372; 99284; J1885

== ENCOUNTER → 2024-10-26 07:15 | Outpatient (BNV) | payer OTHER, SELFPAY | PROVIDERS: Emergency Provider Emergency Medicine; PCP Family Medicine; Visit Provider Radiology Diagnostic Radiology | DX: M79.661 Pain in right lower leg (principal) | CPT/HCPCS: 73590 ==

== ENCOUNTER 2024-12-23 08:50 | Outpatient (REF) | payer OTHER, SELFPAY ==
[2024-12-23 10:35] LABS: Alanine Aminotransferase 30 U/L (0-40); Albumin Level 4.1 g/dL (3.5-5.0); Alkaline Phosphatase 66 U/L (39-117); Anion Gap 12 (12-20); Aspartate Amino Transferase 21 U/L (5-37); Bilirubin Direct < 0.2 mg/dL (0.0-0.5); Bilirubin Total 0.2 mg/dL (0.0-1.0); Blood Urea Nitrogen 16 mg/dL (9-16); Carbon Dioxide 26 mmol/L (22-29); Chloride 109 mmol/L (96-108); Cholesterol 153 mg/dL (<200); Estimated Glomerular Filt Rate > 60; Glucose Random 88 mg/dL (60-115); HDL Cholesterol 41 mg/dL (>40); LDL Cholesterol Calculated 88 mg/dL (<100); Potassium 3.7 mmol/L (3.3-5.1); Sodium 143 mmol/L (135-145); Triglycerides 121 mg/dL (<150); Uric Acid 7.3 mg/dL (3.4-7.0)
== END 2024-12-23 08:51 | disposition home or self-care (01) ==
LOC: HO.LAB 08:50
PROVIDERS: PCP Family Medicine; Visit Provider Family Medicine
DX: I10 Essential (primary) hypertension (principal); E78.5 Hyperlipidemia, unspecified; M10.9 Gout, unspecified
CPT/HCPCS: 36415; 80048; 80061; 80076; 84550

== ENCOUNTER 2025-06-05 10:45 | Outpatient (REF) | payer OTHER, SELFPAY ==
--- OUTSIDE RECORDS SUMMARY | 2025-06-05 10:00 | XMS_ITS | Encounter Summary ---
Author Organization [employer] Address [address] [facility] 7t [place] [address] Care Team Providers Care Product Specialist Name Role Phone Jyoti Berry MD Primary Care Provider [phone] Jude Brothers MD Unavailable [phone] Radha Quispe MD Unavailable Molly Trevino Unavailable Reason for Visit * Reason Comments Annual Exam Encounter Details Date Type Department Care Team (Late st Contact Info) Description 06/05/2025 10:00 AM EDT Office Visit [facility] [address] [place], [place] [phone] Jyoti Berry MD [address] [place], [place] [phone] Essential hypertension (Primary Dx); JACKIE (obstructive sleep apnea); Acute gout of ankle, unspecified cause, unspecified laterality; Dyslipidemia; Funiculitis; Other fatigue; Weight gain Social History Tobacco Use Types Packs/Day Years Used Date Smoking Tobacco: Never Passive Smoke Exposure: Never Smokeless Tobacco: Never Alcohol Use Standard Drinks/Week Comments Never 0 (1 standard drink = 0.6 oz pur e alcohol) Depression Answer Date Recorded Patient Health Questionnaire-9 Score 1 06/05/2025 Patient Health Questionnaire-9 Score 1 06/05/2025 Last PHQ-9: Questionnaire Data Not on file 1 Housing Stability Answer Date Recorded What is your housing situation today? I have ulisses rojas 03/19/[address] you li ve. Do you have problems with any of the following? 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 file Not on file Not on file documented as of this encounter Last Filed Vital Signs Vital Sign Reading Time Taken Comments Blood Pressure 132/82 06/05/2025 10:31 AM EDT Pulse 69 06/05/2025 10:03 AM EDT Temperature 36.8 C (98.2 F) 06/05/2025 10:03 AM EDT Respiratory Rate 20 06/05/2025 10:03 AM EDT Oxygen Saturation 98% 06/05/2025 10:03 AM EDT Inhaled Oxygen Concentration - - Weight 122 kg (269 lb) 06/05/2025 10:03 AM EDT Height 177.8 cm (5' 10 ) 06/05/2025 10:03 AM EDT Body Mass Index 38.6 06/05/2025 10:03 AM EDT documented in this encounter Functional Status * Question Answer Date of Assessment Author Erica nervous, anxious, or on edge 0 06/05/2025 10:27 AM Miley Galo MD Not being able to stop or control worrying 0 06/05/2025 10:27 AM Miley Galo MD * Over the past 2 weeks, how often have you been bothered by any of the following problems? Question Answer Date of Assessment Author Patient Health Questionnaire -2 Score 0 06/05/2025 10:27 AM Miley Galo MD * Little interest or pleasure in doing things Answer Date of Assessment Author Not at all 06/05/2025 10:27 AM Jyoti Galo MD * Feeling down, depressed, or hopeless Answer Date of Assessment Author Not at all 06/05/2025 10:27 AM Jyoti Galo MD * Trouble falling or staying asleep, or sleeping too much Answer Date of Assessment Author Not at all 06/05/2025 10:27 AM Jyoti Galo MD * Feeling tired or having little energy Answer Date of Assessment Author Several days 06/05/2025 10:27 AM Jyoti Galo MD * Poor appetite or overeating Answer Date of Assessment Author Not at all 06/05/2025 10:27 AM Jyoti Galo MD * Feeling bad about yourself - or that you are a failure or have let yourself or your family down Answer Date of Assessment Author Not at all 06/05/2025 10:27 AM Jyoti Galo MD * Trouble concentrating on things, such as reading the newspaper or watching television Answer Date of Assessment Author Not at all 06/05/2025 10:27 AM Jyoti Galo MD * Moving or speaking so slowly that other people could have noticed? Or the opposite - being so fidgety or restless that you have been moving around a lot more than usual. Answer Date of Assessment Author Not at all 06/05/2025 10:27 AM Jyoti Galo MD * Thoughts that you would be better off or hurting yourself in some way Answer Date of Assessment Author Not at all 06/05/2025 10:27 AM EDT Jyoti Berry MD * Patient Health Questionnaire-9 Score Answer Date of Assessment Author 1 06/05/2025 10:27 AM EDT Jyoti Berry MD documented as of this encounter Patient Instructions * Patient Instructions* Jyoti Berry MD - 06/05/2025 10:00 AM EDT [facility] [address], 3[address] Floor, [facility] [address] [facility] [address], [facility] documented in this encounter Progress Notes * Jyoti Berry MD - 06/05/2025 10:00 AM EDT Katlyn Maher is a 39 y.o. male who presents to the office today for a routine physical. No concerns. Trying to loose weight. Having difficulty with energy and feeling fatigued. He is going on a cruise the end of the month. He reports a painful pimple-like area on his left moravian. Social History Tobacco: denied Drugs: none Alcohol: No Sexuality: Denies current sexual activity Suicide/Depression: The patient denies any present symptoms of depression or anxiety. Review of Systems Constitutional: Negative for fever and unexpected weight change. Respiratory: Negative for shortness of breath. Cardiovascular: Negative for chest pain. Gastrointestinal: Negative for abdominal pain. Genitourinary: Negative for difficulty urinating. Current Medications[1] Allergies[2] Medical History[3] Surgical History[4] Family History[5] Objective Visit Vitals BP 132/82 Pulse 69 Temp 98.2 ??F (36.8 ??C) (Oral) Resp 20 Ht 5' 10 (1.778 m) Wt 269 lb (122 kg) SpO2 98% BMI 38.60 kg/m?? Smoking Status Never BSA 2.45 m?? Physical Exam Constitutional: Appearance: Normal appearance. HENT: Right Ear: Tympanic membrane normal. Left Ear: Tympanic membrane normal. Nose: Nose normal. Mouth/Throat: Pharynx: Oropharynx is clear. Eyes: Extraocular Movements: Extraocular movements intact. Pupils: Pupils are equal, round, and reactive to light. Cardiovascular: Rate and Rhythm: Normal rate and regular rhythm. Heart sounds: Normal heart sounds. Pulmonary: Effort: Pulmonary effort is normal. Breath sounds: Normal breath sounds. No wheezing. Abdominal: General: Abdomen is flat. Palpations: Abdomen is soft. Tenderness: There is no abdominal tenderness. Musculoskeletal: General: Normal range of motion. Skin: General: Skin is warm and dry. Comments: Indurated, painful red 1cm lesion left moravian Neurological: General: No focal deficit present. Mental Status: He is alert. Psychiatric: Mood and Affect: Mood normal. Behavior: Behavior normal. 39 y.o. male physical exam. Assessment & Plan Essential hypertension -Blood pressure is at goal -Continue lifestyle modifications -Patient diagnosed with gout ED 10/26/23; chlorthalidone discontinued by [facility] 11/19/24 due to potential increase in risk of gout - Lisinopril replaced by Losartan by [facility] 11/19/24 Orders: Basic Metabolic Panel; Future JACKIE (obstructive sleep apnea) Severe obstructive sleep apnea. Followed by Sleep medicine. - Onset Date: 06/16/20 -Home sleep study: AHI 29.6/hr with O2 trish 85% -Supplies ordered by sleep medicine though [facility]. -Note from sleep medicine 07/29/24 Continue using APAP 5-20 cmH2O device nightly as patient is experiencing good clinical effects. Continue to eat a healthy diet, monitor BP, and exercise 3-5 times per week, ensuring you are elevating your heart rate for 20 min or as tolerable. Acute gout of ankle, unspecified cause, unspecified laterality Hx of two episodes of gout, most recently in 10/2024. Lab Results Component Value Date URICACID 7.3 (H) 12/23/2024 URICACID 8.7 (H) 10/26/2024 -blood pressure medications were changed. -on a low-puring diet. -on allopurinol since 12/2024 without further episodes. Goal Uric acid < 6 Orders: Uric acid; Future Dyslipidemia Lab Results Component Value Date CHOL 153 12/23/2024 CHOL 168 03/28/2024 TRIG 121 12/23/2024 TRIG 174 (H) 03/28/2024 TRIG 274 (H) 08/15/2022 HDL 41 12/23/2024 HDL 36 (L) 03/28/2024 LDLCHOLCAL 88 12/23/2024 LDLCHOLCAL 98 03/28/2024 -continue lifestyle modification -omega 3 fish oil started 04/01/24 Funiculitis Orders: doxycycline (Vibramycin) 100 MG capsule; Take 1 capsule (100 mg) by mouth 2 times daily for 5 days.Take with at least 8 ounces (large glass) of water, do not lie down for 30 minutes after Other fatigue Orders: TSH W/Reflex to FT4; Future Weight gain Baseline weight: -given BMI >30kg/m2 or >27kg/m2 with one or more weight related comorbidities (hypertension) pt is a candidate for glucagon-like peptide-1s (GLP-1) to assist with weight loss -pt has attempted > 3 months of dietary changes and increased physical activity without significant reduction in weight -He has history of anxiety and which can be exacerbated by phentermine. -he is thinking about GLP-1 medication. Given the number for weight loss clinics to discuss options. Continue lifestyle changes. Orders: TSH W/Reflex to FT4; Future Physical exam -Normal growth and development. -Anticipatory guidance discussed. -Preventative care / harm reduction discussed. Follow up in about 6 months (around 12/04/2025) for htn. [1] Current Outpatient Medications: allopurinol (Zyloprim) 100 MG tablet, Take 1 tablet (100 mg) by mouth Once per day., Disp: 90 tablet, Rfl: 3 doxycycline (Vibramycin) 100 MG capsule, Take 1 capsule (100 mg) by mouth 2 times daily for 5 days.Take with at least 8 ounces (large glass) of water, do not lie down for 30 minutes after, Disp: 10 capsule, Rfl: 0 hydrocortisone (Anusol-HC) 25 MG suppository, UNWRAP AND INSERT 1 SUPPOSITORY RECTALLY EVERY DAY ASNEEDED FOR HEMORRHOIDS, Disp: 25 suppository, Rfl: 2 hydrocortisone 1 % ointment, Apply topically 2 times daily. Pea size amount behind right ear daily for 1 week, Disp: 28 g, Rfl: 1 losartan (Cozaar) 50 MG tablet, Take 1 tablet (50 mg) by mouth Once per day., Disp: 90 tablet, Rfl:3 omega-3 (Fish Oil) 1000 MG capsule, Take 1 capsule (1,000 mg) by mouth 2 times daily., Disp: 180 capsule, Rfl: 3 Reguloid 28.3 % powder, Use daily, Disp: 283 g, Rfl: 1 selenium sulfide (Selsun) 2.5 % shampoo, Lather twice a week on scalp and leave on 2-3 min then risnse, Disp: 118 mL, Rfl: 3 [2] No Known Allergies [3] Past Medical History: Diagnosis Date Dyslipidemia 08/15/2022 Lab Results Component Value Date CHOLESTEROL 167 08/15/2022 LDLCHOL 93 08/15/2022 TRIG 174 (H) 03/28/2024 TRIG 274 (H) 08/15/2022 HDLCHOL 38 (L) 08/15/2022 CHOLHDLRAT 4.4 08/15/2022 -continue lifestyle modifications -omega 3 fish oil started 04/01/24 Essential hypertension 02/05/2015 -Blood pressure is at goal -Continue lifestyle modifications -[facility] - Continue chlorthalidone 25mg once daily JACKIE (obstructive sleep apnea) 08/15/2022 Severe obstructive sleep apnea. Followed by Sleep medicine. - Onset Date: 06/16/20 -Home sleep study: AHI 29.6/hr with O2 trish 85% -Supplies ordered by sleep medicine though [facility]. -Note from sleep medicine 07/29/24 Continue using APAP 5-20 cmH2O device nightly as patient is experiencing good clinical effects. Continue to eat a healthy diet, monitor BP, and exercise 3-5 times p Transaminitis 08/15/2022 Lab Results Component Value Date AST 25 01/25/2024 AST 23 01/05/2023 ALT 27 01/25/2024 ALT 31 01/05/2023 ALP 55 01/25/2024 DIRECTBILIRU 0.2 01/25/2024 Rare alcohol use. Hepatitis serology is negativefrom 2019. Reviewed that most likely nonalcoholic fatty liver disease in the setting of u [4] Past Surgical History: Procedure Laterality Date CYST REMOVAL on sclap multiple [5] Family History Problem Relation Name Age of Onset Cholecystitis Mother Cholecystitis Sister No Known Problems Paternal Grandmother documented in this encounter Miscellaneous Notes * Assessment & Plan Note - Jyoti Berry MD - 06/05/2025 10:00 AM EDT Associated Problem(s): Essential hypertension -Blood pressure is at goal -Continue lifestyle modifications -Patient diagnosed with gout ED 10/26/23; chlorthalidone discontinued by [facility] 11/19/24 due to potential increase in risk of gout - Lisinopril replaced by Losartan by [facility] 11/19/24 Orders: Basic Metabolic Panel; Future * Assessment & Plan Note - Jyoti Berry MD - 06/05/2025 10:00 AM EDT Associated Problem(s): JACKIE (obstructive sleep apnea) Severe obstructive sleep apnea. Followed by Sleep medicine. - Onset Date: 06/16/20 -Home sleep study: AHI 29.6/hr with O2 trish 85% -Supplies ordered by sleep medicine though [facility]. -Note from sleep medicine 07/29/24 Continue using APAP 5-20 cmH2O device nightly as patient is experiencing good clinical effects. Continue to eat a healthy diet, monitor BP, and exercise 3-5 times per week, ensuring you are elevating your heart rate for 20 min or as tolerable. * Assessment & Plan Note - Jyoti Berry MD - 06/05/2025 10:00 AM EDT Associated Problem(s): Acute gout of ankle Hx of two episodes of gout, most recently in 10/2024. Lab Results Component Value Date URICACID 7.3 (H) 12/23/2024 URICACID 8.7 (H) 10/26/2024 -blood pressure medications were changed. -on a low-puring diet. -on allopurinol since 12/2024 without further episodes. Goal Uric acid < 6 Orders: Uric acid; Future * Assessment & Plan Note - Jyoti Berry MD - 06/05/2025 10:00 AM EDT Associated Problem(s): Dyslipidemia Lab Results Component Value Date CHOL 153 12/23/2024 CHOL 168 03/28/2024 TRIG 121 12/23/2024 TRIG 174 (H) 03/28/2024 TRIG 274 (H) 08/15/2022 HDL 41 12/23/2024 HDL 36 (L) 03/28/2024 LDLCHOLCAL 88 12/23/2024 LDLCHOLCAL 98 03/28/2024 -continue lifestyle modification -omega 3 fish oil started 04/01/24 documented in this encounter Plan of Treatment Upcoming Encounters Date Type Department Care Team (Late st Contact Info) Description 06/09/2025 10:00 AM EDT Office Visit [facility] [address] [place] [phone] Suzie Calhoun BDS [address] [place], [place] [phone] 11/10/2025 10:00 AM EDT Office Visit [facility] [address] [place] [phone] Sharmin Renteria [address] [place] [address] Scheduled Orders Name Type Priority Associated Diagnoses Orde r Schedule Uric acid Lab Routine Acute gout of ankle, unspecified cause, unspecified laterality Expected: 06/04/2025 (Approximate), Expires: 06/04/2026 documented as of this encounter Goals Goal Patient Goal Type Associated Problems Recent Progress Patient-Stated? Author Blood Pressure < 140/90 Blood Pressure 132/82( 025 10:31 AM EDT) No Keysha Tavares, CodeyD documented as of this encounter Procedures Procedure Name Priority Date/Time Associated Diagnosis Comments TSH W/REFLEX TO FT4 Routine 06/05/2025 10:50 AM EDT Other fatigue Weight gain BASIC METABOLIC PANEL Routine 06/05/2025 10:50 AM EDT Essential hypertension documented in this encounter Results * (ABNORMAL) Basic Metabolic Panel (06/05/2025 10:50 AM EDT) Sodium 141 135 - 145 mmol/L [facility] Potassium 4.1 3.3 - 5.1 mmol/L [facility] Chloride 105 96 - 108 mmol/L [facility] Carbon Dioxide 30(H) 22 - 29 mmol/L [facility] Anion Gap 10(L) 12 - 20 [facility] Urea Nitrogen (BUN) 16 9 - 16 mg/dL [facility] Creatinine, Serum 0.93 0.5 - 1.4 mg/dL [facility] Estimated Glomerular Filt Rate >60 [facility] Comment:Chronic Kidney Disea se: Estimated GFR < 60 mL/min/1.17m3Olinqs Kidney Disease: Estimated GFR < 15 mL/min/1.73m2 Glucose 97 60 - 115 mg/dL [facility] Calcium 9.4 8.4 - 10.2 mg/dL [facility] Blood Venous blood specimen / Unknown 06/05/2025 10:50 AM EDT 06/05/2025 11:35 AM EDT Jyoti Berry MD LAB BLOOD ORDERABLES Final Result [facility] [address] [place] [address] [phone] * TSH W/Reflex to FT4 (06/05/2025 10:50 AM EDT) TSH reflex Free T4 0.89 0.32 - 4.0 uIU/mL [facility] Blood Venous blood specimen / Unknown 06/05/2025 10:50 AM EDT 06/05/2025 11:35 AM EDT us Jyoti Berry MD LAB BLOOD ORDERABLES Final Result Performing Organization Address [facility]/ZIP Co de Phone Number [facility] [address] [place] [address] [phone] documented in this encounter Visit Diagnoses Diagnosis Essential hypertension- Primary Unspecified essential hypertension JACKIE (obstructive sleep apnea) Obstructive sleep apnea (adult) (pediatric) Acute gout of ankle, unspecified cause, unspecified laterality Dyslipidemia Other and unspecified hyperlipidemia Funiculitis Other inflammatory disorder of male genital organs Other fatigue Weight gain Other symptoms concerning nutrition, metabolism, and development documented in this encounter Additional Health Concerns Assessment Noted Time PHQ-9 Depression Total Score: 1 06/05/20 25 10:27 AM EDT documented as of this encounter Care Teams Product Specialist Relationship Specialty Start Date End Date Jyoti Berry MD [address] [place] [phone] PCP - General Family Medicine 09/04/18 Jude Brothers MD [address] [place] [phone] General Surgery 07/24/24 Radha Quispe MD [address] [place] [address] [address] [place] [address] Sleep Medicine 07/29/[address] [place] [phone] Gastroenterology 08/06/24 documented as of this encounter
[2025-06-05 12:15] LABS: Anion Gap 10 (12-20); Blood Urea Nitrogen 16 mg/dL (9-16); Calcium 9.4 mg/dL (8.4-10.2); Carbon Dioxide 30 mmol/L (22-29); Chloride 105 mmol/L (96-108); Estimated Glomerular Filt Rate > 60; Potassium 4.1 mmol/L (3.3-5.1); Sodium 141 mmol/L (135-145); Uric Acid 6.0 mg/dL (3.4-7.0)
--- OUTSIDE RECORDS SUMMARY | 2025-06-05 12:35 | XMS_ITS | Encounter Summary ---
Author Organization [employer] Address [address] [facility] [address] [place] [address] Care Team Providers Care Fence Supervisor Name Role Phone Jyoti Berry MD Primary Care Provider + [phone] Keysha Jarvis PharmD Unavailable [phone] Jude Brothers MD Unavailable [phone] Radha Quispe MD Unavailable Molly Trevino Unavailable Reason for Visit * Reason Onset Date Comments Med Refill 10/04/2024 Encounter Details Date Type Department Care Team (Late st Contact Info) Description 10/04/2024 Refill [facility] [address] [place], [place] [phone] Jyoti Berry MD [address] [place], [place] [phone] Essential hypertension Social History Tobacco Use Types [...] 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 Author Blood Pressure < 140/90 Blood Pressure 132/82(10/02/2 025 10:31 AM EDT) No Keysha Tavares PharmD documented as of this encounter Visit Diagnoses Diagnosis Essential hypertension Unspecified essential hypertension documented in this encounter Additional Health Concerns Assessment Noted Time PHQ-9 Depression Total Score: 4 03/27/20 2:25 PM EDT documented as of this encounter Care Teams Fence Supervisor Relationship Specialty Start Date End Date Jyoti Berry MD [address] [place] [address] PCP - General Family Medicine 09/04/18 Keysha Jarvis, PharmD [address] [place] [phone] Pharmacist Internal Medicine 01/05/23 04/29/25 Jude Brothers MD [address] [place] [phone] General Surgery 07/24/24 Radha Quispe MD [address] [facility] [address] [place] [address] Sleep Medicine 07/29/24 Molly Trevino [address] [place] [phone] Gastroenterology 08/06/24 documented as of this encounter
--- OUTSIDE RECORDS SUMMARY | 2025-06-05 12:35 | XMS_ITS | Clinical Summary ---
Author Organization [employer] Address [address] [facility] [address] [place] [address] Care Team Providers Care Quantitative Analyst Name Role Phone Jyoti Berry MD Primary Care Provider [phone] Jude Brothers MD Unavailable [phone] Radha Quispe MD Unavailable Molly Trevino Unavailable Allergies No known active allergies Medications hydrocortisone (Anusol-HC) 25 MG suppositoryIndic ations:External hemorrhoids UNWRAP AND INSERT 1 SUPPOSITORY RECTALLY EVERY DAY NEEDED FOR HEMORRHOIDS 25 suppository 2 09/27/19 25 Active selenium sulfide (Selsun) 2.5 % shampooIndicatio ns:Generalized seborrheic dermatitis Lather twice a week on scalp and leave on 2-3 min then risnse 118 mL 3 10/01/19 25 Active hydrocortisone 1 % ointmentIndicati ons:Generalized seborrheic dermatitis Apply topically 2 times daily. Pea size amount behind right ear daily for 1 week 28 g 1 10/01/19 25 Active Reguloid 28.3 % powderIndication s:Constipation, unspecified constipation type Use daily 283 g 1 11/26/19 25 Active allopurinol (Zyloprim) 100 MG tabletIndication s:Gout, unspecified cause, unspecified chronicity, unspecified site Take 1 tablet (100 mg) by mouth Once per day. 90 tablet 3 12/25/19 25 026 Active losartan (Cozaar) 50 MG tabletIndication s:Essential hypertension Take 1 tablet (50 mg) by mouth Once per day. 90 tablet 3 02/14/20 25 Active omega-3 (Fish Oil) 1000 MG capsuleIndicatio ns:Dyslipidemia Take 1 capsule (1,000 mg) by mouth 2 times daily. 180 capsule 3 02/14/20 25 Active doxycycline (Vibramycin) 100 MG capsuleIndicatio ns:Funiculitis Take 1 capsule (100 mg) by mouth 2 times daily for 5 days. Take with at least 8 ounces (large glass) of water, do not lie down for 30 minutes after 10 capsule 06/05/20 025 Active senna (Senokot) 8.6 MG tabletIndication s:Constipation, unspecified constipation type Take 1 tablet (8.6 mg) by mouth at bedtime. 60 tablet 2 11/26/19 25 025 Active Problems Problem Noted Date Diagnosed Date Acute gout of ankle 11/25/2024 Overview (06/04/2025): Hx of two episodes of gout, most recently in 10/2024. Lab Results Component Value Date URICACID 7.3 (H) 12/23/2024 URICACID 8.7 (H) 10/26/2024 -blood pressure medications were changed but uric acid remains elevated -on a low-puring diet -allopurinol started 12/24/24 100mg, recheck uric acid in 4 weeks Assessment & Plan (06/05/2025 10:54 AM EDT): Hx of two episodes of gout, most recently in 10/2024. Lab Results Component Value Date URICACID 7.3 (H) 12/23/2024 URICACID 8.7 (H) 10/26/2024 -blood pressure medications were changed. -on a low-puring diet. -on allopurinol since 12/2024 without further episodes. Goal Uric acid < 6 Orders: Uric acid; Future Assessment & Plan (11/25/2024 7:37 PM EDT): Hx of two episodes of gout, most recently in 10/2024. -blood pressure medications were changed. -on a low-puring diet. -ordered repeat Uric Acid 11/25/24, if it remains greater than 6, we will start allopurinol. Pt agrees with the plan. Class 2 obesity due to exces s calories without serious comorbidity with body mass index (BMI) of 35.0 to 35.9 in adult 09/30/2024 Overview (11/25/2024): Discussed weight, diet, exercise with patient in relation to health conditions. Used motivational interviewing to illicit change talk and established initial goals with patient. -referred to Adjunct English Instructor 09/30/24 -Follows with Adjunct English Instructor Assessment & Plan (11/25/2024 7:37 PM EDT): Discussed weight, diet, exercise with patient in relation to health conditions. Used motivational interviewing to illicit change talk and established initial goals with patient. -referred to Adjunct English Instructor 09/30/24 -Follows with Adjunct English Instructor Assessment & Plan (09/30/2024 11:11 AM EST): Discussed weight, diet, exercise with patient in relation to health conditions. Used motivational interviewing to illicit change talk and established initial goals with patient. -referred to Adjunct English Instructor 09/30/24 Constipation 09/30/2024 Overview (11/25/2024): Occasional constipation, no acute concerns. Has relief with Fiber. -refilled psyllium (Metamucil) 58.6 % powder 09/30/24 -prescribed Reguloid 28.3 % powder and senna (Senokot) 8.6 MG 11/25/24 Assessment & Plan (11/25/2024 7:35 PM EDT): Occasional constipation, no acute concerns. Has relief with Fiber. -refilled psyllium (Metamucil) 58.6 % powder 09/30/24 -prescribed Reguloid 28.3 % powder and senna (Senokot) 8.6 MG 11/25/24 Assessment & Plan (09/30/2024 11:15 AM EST): Occasional constipation, no acute concerns. Has relief with Fiber. -refilled psyllium (Metamucil) 58.6 % powder 09/30/24 Seborrheic dermatitis 09/30/2024 Overview (09/30/2024): -prescribed hydrocortisone 1 % ointment 09/30/24 Assessment & Plan (09/30/2024 11:19 AM EST): -prescribed hydrocortisone 1 % ointment 09/30/24 Geographic tongue 09/30/2024 Overview (09/30/2024): Reassurance given. Assessment & Plan (09/30/2024 11:19 AM EST): Reassurance given. Tendinitis of left forearm 03/27/2024 Overview (03/27/2024): -advised to wear a band to relieve pressure on muscle and return if worsens for possible ortho referral. Assessment & Plan (03/27/2024 3:01 PM EDT): -advised to wear a band to relieve pressure on muscle and return if worsens for possible ortho referral. Preventative health care 01/12/2023 Overview (03/27/2024): -next physical exam due after 03/27/25 -eye care facilitated by [facility] is [facility] proxy filed 03/27/24 Assessment & Plan (03/27/2024 2:50 PM EDT): -next physical exam due after 03/27/25 -eye care facilitated by [facility] is [facility] proxy filed 03/27/24 Diverticular disease 08/26/2022 JACKIE (obstructive sleep apnea) 08/15/2022 Overview (07/29/2024): Severe obstructive sleep apnea. Followed by Sleep [...] rate for 20 min or as tolerable. Assessment & Plan (06/05/2025 10:54 AM EDT): Severe obstructive sleep apnea. Followed by Sleep [...] rate for 20 min or as tolerable. Assessment & Plan (03/27/2024 2:59 PM EDT): Severe obstructive sleep apnea. Followed by Sleep medicine. - Onset Date: 06/16/20 -Home sleep study: AHI 29.6/hr with O2 trish 85% -Continue APAP cmH2O nightly > 4 hours, as pt is experiencing good clinical effect. Supplies ordered by sleep medicine though [facility]. -occasionally forgets to wear CPAP Assessment & Plan (08/15/2022 10:01 AM EST): Tolerating CPAP well. Followed by Sleep Medicine. GERD (gastroesophageal reflux disease) 2 Transaminitis 08/15/2022 Overview (09/30/2024): Lab Results Component Value Date AST 30 08/13/2024 AST 23 01/05/2023 ALT 29 08/13/2024 ALT 31 01/05/2023 ALP 58 08/13/2024 DIRECTBILIRU 0.2 01/25/2024 Rare alcohol use. Hepatitis serology is negative from 2019. Reviewed that most likely nonalcoholic fatty liver disease in the setting of underlying obesity with BMI 33. Patient also has JACKIE. liver function tests much improved. -low fib 4 score : 0.51 - Weight loss of at least 10% body weight over 6 months - At least moderate intensity activity x 150 mins/week - Management of DM and HLD as per guidelines if present - Minimize etOH, NSAIDs. - hx colonsocpy normal 09/13/2022 -note from Dr. Barnes Based on fib 4 score of 0.51 and absence of other risk factors (such as T2DM, age >50, BMI >50,) patient falls under low risk for progression, and therefore this time is being discharged back to PCP Assessment & Plan (03/27/2024 3:02 PM EDT): Lab Results Component Value Date AST 25 01/25/2024 AST 23 01/05/2023 ALT 27 01/25/2024 ALT 31 01/05/2023 ALP 55 01/25/2024 DIRECTBILIRU 0.2 01/25/2024 Rare alcohol use. Hepatitis serology is negative from 2019. Reviewed that most likely nonalcoholic fatty liver disease in the setting of underlying obesity with BMI 33. Patient also has JACKIE. liver function tests much improved. - Weight loss of at least 10% body weight over 6 months - At least moderate intensity activity x 150 mins/week - Management of DM and HLD as per guidelines if present - Minimize etOH, NSAIDs. Assessment & Plan (03/15/2023 4:19 PM EDT): Rare alcohol use. Hepatitis serology is negative from 2019. Reviewed that most likely nonalcoholic fatty liver disease in the setting of underlying obesity with BMI 33. Patient also has JACKIE. - Weight loss of at least 10% body weight over 6 months - At least moderate intensity activity x 150 mins/week - Management of DM and HLD as per guidelines if present - Minimize etOH, NSAIDs. - Will recheck hep serologies (for vaccination status) and LFTs in 6 months Dyslipidemia 08/15/2022 Overview (06/04/2025): Lab Results Component Value Date CHOL 153 12/23/2024 CHOL 168 03/28/2024 TRIG 121 12/23/2024 TRIG 174 (H) 03/28/2024 TRIG 274 (H) 08/15/2022 HDL 41 12/23/2024 HDL 36 (L) 03/28/2024 LDLCHOLCAL 88 12/23/2024 LDLCHOLCAL 98 03/28/2024 -continue lifestyle modification -omega 3 fish oil started 04/01/24 Assessment & Plan (06/05/2025 10:54 AM EDT): Lab Results Component Value Date CHOL 153 12/23/2024 CHOL 168 03/28/2024 TRIG 121 12/23/2024 TRIG 174 (H) 03/28/2024 TRIG 274 (H) 08/15/2022 HDL 41 12/23/2024 HDL 36 (L) 03/28/2024 LDLCHOLCAL 88 12/23/2024 LDLCHOLCAL 98 03/28/2024 -continue lifestyle modification -omega 3 fish oil started 04/01/24 Assessment & Plan (11/25/2024 7:38 PM EDT): Lab Results Component Value Date CHOL 168 03/28/2024 TRIG 174 (H) 03/28/2024 TRIG 274 (H) 08/15/2022 HDL 36 (L) 03/28/2024 LDLCHOLCAL 98 03/28/2024 -continue lifestyle modification -omega 3 fish oil started 04/01/24 -ordered repeat FLP and HLP 11/25/24 Assessment & Plan (03/27/2024 2:54 PM EDT): Lab Results Component Value Date CHOLESTEROL 167 08/15/2022 LDLCHOL 93 08/15/2022 TRIG 274 (H) 08/15/2022 HDLCHOL 38 (L) 08/15/2022 CHOLHDLRAT 4.4 08/15/2022 -continue lifestyle modifications -ordered labs 03/27/24 Assessment & Plan (03/15/2023 2:33 PM EDT): Lab Results Component Value Date CHOLESTEROL 167 08/15/2022 LDLCHOL 93 08/15/2022 TRIG 274 (H) 08/15/2022 HDLCHOL 38 (L) 08/15/2022 CHOLHDLRAT 4.4 08/15/2022 -continue lifestyle modifications Epidermoid cyst of skin of scalp 02/02/2022 Essential hypertension 02/05/2015 Overview (11/19/2024): -Blood pressure is at goal -Continue lifestyle modifications -Patient diagnosed with gout ED 10/26/23; chlorthalidone discontinued by [facility] 11/19/24 due to potential increase in risk of gout - Lisinopril replaced by Losartan by [facility] 11/19/24 Assessment & Plan (06/05/2025 10:54 AM EDT): -Blood pressure is at goal -Continue lifestyle modifications -Patient diagnosed with gout ED 10/26/23; chlorthalidone discontinued by [facility] 11/19/24 due to potential increase in risk of gout - Lisinopril replaced by Losartan by [facility] 11/19/24 Orders: Basic Metabolic Panel; Future Assessment & Plan (11/25/2024 7:35 PM EDT): -Blood pressure is at goal -Continue lifestyle modifications -Patient diagnosed with gout ED 10/26/23; chlorthalidone discontinued by [facility] 11/19/24 due to potential increase in risk of gout - Lisinopril replaced by Losartan by [facility] 11/19/24 Assessment & Plan (09/30/2024 11:18 AM EST): -Blood pressure is at goal -Continue lifestyle modifications -Lisinopril increased to 20mg once daily by [facility] on 07/09/24 - Continue chlorthalidone 25mg once daily Assessment & Plan (03/27/2024 3:00 PM EDT): -Blood pressure is at goal -Continue lifestyle modifications -Lisinopril increased to 10mg once daily by [facility] 03/06/24. -Continue Chlorthalidone 25 mg Assessment & Plan (06/09/2023 7:26 AM EDT): Home BP reported to usually be 120/80, denies having any BP > 140/90 Possibly elevated today due to pain. -Continue regular BP meds and f w PCP. Assessment & Plan (03/15/2023 4:23 PM EDT): -Blood pressure is at goal -Continue lifestyle modifications -Continue lisinopril 5mg and chlothalidone 25mg, Assessment & Plan (08/15/2022 10:01 AM EST): Missed Rx today because of shoveling snow but taking regularly. Resolved Problems Problem Noted Date Diagnosed Date Resolved Date Acute non-recurrent maxillary sinusitis 01/06/2025 06/04/2025 Assessment & Plan (01/06/2025 1:10 PM EDT): Consistent with sinus infection >10 days of uri symptoms with sig nasal congestion and now acutely worsening sinus symptoms Exercise counseling 09/30/2024 06/04/20 Assessment & Plan (11/25/2024 7:38 PM EDT): Exercise Recommendations: At least 150 minutes of moderate-intensity physical activity per week, or an equivalent combination of moderate- and vigorous-intensity activity Assessment & Plan (09/30/2024 11:11 AM EST): Exercise Recommendations: At least 150 minutes of moderate-intensity physical activity per week, or an equivalent combination of moderate- and vigorous-intensity activity Dietary counseling 09/30/2024 Assessment & Plan (11/25/2024 7:38 PM EDT): Dietary Recommendations: Fruits, vegetables, whole grains, protein foods, and fat-free or low-fat dairy products are healthy choices. Eat different types of protein foods in your diet. This can include seafood, lean meats, poultry, beans, peas, lentils, nuts, seeds, soy products, and eggs. Limit foods and beverages higher in added sugars, saturated fat, and sodium. Assessment & Plan (09/30/2024 11:11 AM EST): Dietary Recommendations: Fruits, vegetables, whole grains, protein foods, and fat-free or low-fat dairy products are healthy choices. Eat different types of protein foods in your diet. This can include seafood, lean meats, poultry, beans, peas, lentils, nuts, seeds, soy products, and eggs. Limit foods and beverages higher in added sugars, saturated fat, and sodium. Overweight 03/27/2024 06/04/2025 Bleeding internal hemorrhoids 12/11/2023 06/04/2025 Assessment & Plan (12/11/2023 4:49 PM EDT): Rx hydrocortisone intra rectal cream tid x 1w, reassurance Rx sitz baths prn pain Avoid constipation Can take tylenol prn LBP Right foot pain 06/09/2023 06/04/2025 Assessment & Plan (06/09/2023 7:27 AM EDT): Pain consistent w plantar fasciitis from exam and description of Sx. -Discussed today and showed pt videos of exercises that he can do at home to alleviate pain. -Referred to research leader. Wrist pain 06/09/2023 06/04/2025 Assessment & Plan (06/09/2023 7:31 AM EDT): Right wrist pain x 1 week w mild swelling upon examination. No concerning Hx or examination for fractures. From Hx and VS no current concern for septic arthritis or other inflammatory arthritis such as gout, which are low in the DDx at this time. Pt reports overuse of wrist in job. Chem wnl in 01/2023 -Advise immobilization w wrist brace that he has already been using. -Rest, ice. -NSAID prescribed for 1 wk. -Alarm S/Sx discussed w pt today. Explained that if Sx don't improve or worsen in next 3 d to come back to [facility] for reevaluation, to rule out infectious vs inflammatory arthritis. Lightheadedness 11/09/2022 06/04/2025 Assessment & Plan (11/09/2022 9:21 AM EST): Normal exam without nystagmus so less likely vertigo Will check BMP for electrolytes and kidney function Will add additional BP agent, likely Lisinopril 5mg Fatty liver 09/29/2022 04/17/2024 Overview (03/27/2024): Lab Results Component Value Date AST 25 01/25/2024 AST 23 01/05/2023 AST 26 08/25/2022 AST 28 08/19/2022 ALT 27 01/25/2024 ALT 31 01/05/2023 ALT 44 (H) 08/25/2022 ALT 42 08/19/2022 ALP 55 01/25/2024 ALP 66 08/25/2022 Stable per above numbers. -US 09/2022 reveals evidence of fatty liver -Hep C antibodies non reactive 04/20/2022 -Immune to HepA IgG 08/2019 -Hepatitis B series started -Lifestyle modification discussed. Avoid hepatotoxic agents. Assessment & Plan (03/27/2024 3:00 PM EDT): Lab Results Component Value Date AST 25 01/25/2024 AST 23 01/05/2023 AST 26 08/25/2022 AST 28 08/19/2022 ALT 27 01/25/2024 ALT 31 01/05/2023 ALT 44 (H) 08/25/2022 ALT 42 08/19/2022 ALP 55 01/25/2024 ALP 66 08/25/2022 Stable per above numbers. -US 09/2022 reveals evidence of fatty liver -Hep C antibodies non reactive 04/20/2022 -Immune to HepA IgG 08/2019 -Hepatitis B series started -Lifestyle modification discussed. Avoid hepatotoxic agents. Assessment & Plan (09/29/2022 8:41 AM EST): -US 09/2022 reveals evidence of fatty liver -lifestyle modification discussed Weight loss, unintentional 08/15/2022 1 Encounters Date Type Department Care Team Description 06/05/2025 10:00 AM EDT Office Visit [address] [address] Jyoti Berry MD Essential hypertension (Primary Dx); JACKIE (obstructive sleep apnea); Acute gout of ankle, unspecified cause, unspecified laterality; Dyslipidemia; Funiculitis; Other fatigue; Weight gain 06/05/2025 Travel 06/04/[address] [address] Jyoti Berry MD chart prep 06/04/[address] [address] Jyoti Berry MD 05/29/2025 Patient Outreach [facility] [address] [place] [address] Jyoti Berry MD Pre-visit Planning (GAOH was already completed) 05/08/2025 10:00 AM EDT Office [address] [facility] [address] [place] [address] Shay Renteriaine 04/29/2025 Travel 03/19/2025 Telephone [facility] [address] [place], [place] [phone] Jyoti Berry MD June recall from Last 3 Months Immunizations Immunization Administration Dates Next Due Hep B, adult 04/20/2023,05/30/2022,04/28/2022 Influenza injectable quadriv alent IIV4 with preservative 07/12/2018 Influenza injectable quadriv alent preservative free 05/21/2020,06/03/2019 Moderna Covid-19 Vaccine 12+ 11/26/2020,10/29/19 21 TD (adult), 2 Lf tetanus tox oid, preservative free, adsorbed 11/22/2006 Tdap 07/12/2018 Family History Medical History Relation Name Comments Cholecystitis Mother No Known Problems Paternal Grandmother Cholecystitis Sister Relation Name Status Comments Mother Paternal Grandmother Sister Social History Tobacco Use Types Packs/Day Years Used Date Smoking Tobacco: Never Passive Smoke Exposure: Never Smokeless Tobacco: Never Tobacco Cessation:Counseling Given: Not Answered Alcohol Use Standard Drinks/Week Comments Never 0 (1 standard drink = 0.6 oz pur e alcohol) Depression Answer Date Recorded Patient Health Questionnaire-9 Score 1 06/05/2025 Patient Health Questionnaire-9 Score 1 06/05/2025 Last PHQ-9: Questionnaire Data Not on file 1 Housing Stability Answer Date Recorded What is your housing situation today? 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 [address] [place], [place] [phone] Sharmin Renteria [address] [place], [place] [phone] Health Maintenance Due Date Last Done Comments HPV Vaccines (1 - Male 3-dose series) 2002 Dental X-Ray: Bitewings 06/14/2024 06/13/20 23, 08/12/2019, 04/19/2018 Dental Prophylaxis 08/22/2024 02/20/2024, 1 , 08/12/2019, Additional history exists Alcohol/Substance Use Screening 09/30/2025 09/30/2024 Dental Oral Exam 11/06/2025 05/08/2025, , 08/12/2019, Additional history exists SDOH Screening 11/14/2025 11/14/2024 Influenza Vaccine (#1) 2026 , 06/03/2019, 07/12/2018 Postponed from 05/05/2025 (Patient Refused) COVID-19 Vaccine ( season) 2026 11/26/2020, 10/29/2020 Postponed from 05/05/2025 (Patient Refused) Depression Screening 06/05/2026 06/05/2025, 06/05/20 Disability Screening 06/05/2026 06/05/2025 Family Planning (PISQ) 06/05/2026 06/05/2025 Tobacco Screening 06/05/2026 06/05/2025 Dental X-Ray: Full Mouth 06/14/2026 023, 04/23/2018, 04/19/2018 DTaP/Tdap/Td Vaccines (2 - Td or Tdap) 01/09/2029 07/12/2018, 11/22/2006 Postponed from 07/12/2028 (Other Medical Reasons) Lipid Panel 12/23/2029 12/23/2024, 07/2 01/2024, 08/15/2022 Zoster Vaccines (1 of 2) 2037 RSV Patients and Patients Aged 60 years or older (1 - 1-dose 75+ series) 2062 HIV Screening Completed 08/19/2022 Hepatitis C Screening Completed 08/19/2022 , 04/20/2022, 08/19/2019 Hepatitis B Vaccines Completed 04/20/2023, 05/30/2022, 04/28/2022 HIB Vaccines Aged Out No longer eligi ble based on patient's age to complete this topic Hepatitis A Vaccines Discontinued IPV Vaccines Aged Out No longer eligi ble based on patient's age to complete this topic Meningococcal B Vaccine Aged Out No l onger eligible based on patient's age to complete this topic Meningococcal Vaccine Aged Out No jona courtney eligible based on patient's age to complete this topic Pneumococcal Vaccine: Pediatrics (0 to 5 Years) and At-Risk Patients (6 to 49) Years Aged Out No longer eligible based on patient's age to complete this topic RSV under 20 months Aged Out No longe r eligible based on patient's age to complete this topic Rotavirus Vaccines Aged Out No longer eligible based on patient's age to complete this topic Goals Goal Patient Goal Type Associated Problems Recent Progress Patient-Stated? Author Blood Pressure < 140/90 Blood Pressure 132/82( 025 10:31 AM EDT) No Keysha Tavares PharmD Procedures Procedure Name Priority Date/Time Associated Diagnosis Comments BASIC METABOLIC PANEL Routine 06/05/2025 10:50 AM EDT Essential hypertension TSH W/REFLEX TO FT4 Routine 06/05/2025 1 0:50 AM EDT Other fatigue Weight gain URIC ACID Routine 06/05/2025 10:50 AM EDT Gout, unspecified cause, unspecified chronicity, unspecified site CASE PRESENTATION, DETAILED AND EXTENSIVE TREATMENT PLANNING Routine 05/08/2025 10:00 AM EDT PERIODIC ORAL EVALUATION - ESTABLISHED PATIENT Routine 05/08/2025 10:00 AM EDT COMPREHENSIVE PERIODONTAL EVALUATION - NEW OR ESTABLISHED PATIENT Routine 05/08/2025 10:00 AM EDT LIPID PANEL, STANDARD Routine 12/23/2024 8:56 AM EDT Dyslipidemia PROPHYLAXIS - ADULT Routine 02/20/2024 3 :00 PM EDT INTRAORAL - COMPLETE SERIES OF RADIOGRAPHIC IMAGES Routine 06/13/2023 4:00 PM EDT HEPATITIS C VIRAL RNA, QUANTITATIVE, REAL-TIME PCR Routine 08/19/2022 9:17 AM EST Physical exam HIV 1/2 ANTIGEN/ANTIBODY, FOURTH GENERATION W/RFL Routine 08/19/2022 9:17 AM EST Physical exam from Last 3 Months or Most Recently Relevant to Health Maintenance Results * TSH W/Reflex to FT4 (06/05/2025 10:50 AM EDT) TSH reflex Free T4 0.89 0.32 - 4.0 uIU/mL [facility] Blood Venous blood specimen / Unknown 06/05/2025 10:50 AM EDT 06/05/2025 11:35 AM EDT Jyoti Berry MD LAB BLOOD ORDERABLES Final Result Performing Organization Address City/[facility]/ZIP Co de Phone Number [facility] [address] [place] [address] [phone] * Uric acid (06/05/2025 10:50 AM EDT) Uric Acid 6.0 3.4 - 7.0 mg/dL [facility] Blood Venous blood specimen / Unknown 06/05/2025 10:50 AM EDT 06/05/2025 11:35 AM EDT Jyoti Berry MD LAB BLOOD ORDERABLES Final Result Performing Organization Address City/[facility]/ZIP Co de Phone Number [facility] [address] [place] [phone] * (ABNORMAL) Basic Metabolic Panel (06/05/2025 10:50 AM EDT) Sodium 141 135 - 145 mmol/L [facility] Potassium 4.1 3.3 - 5.1 mmol/L [facility] Chloride 105 96 - 108 mmol/L [facility] Carbon Dioxide 30(H) 22 - 29 mmol/L [facility] Anion Gap 10(L) 12 - 20 [facility] Urea Nitrogen (BUN) 16 9 - 16 mg/dL [facility] Creatinine, Serum 0.93 0.5 - 1.4 mg/dL [facility] Estimated Glomerular Filt Rate >60 [facility] Comment:Chronic Kidney Disea se: Estimated GFR < 60 mL/min/[id number] Kidney Disease: Estimated GFR < 15 mL/min/1.73m2 Glucose 97 60 - 115 mg/dL [facility] Calcium 9.4 8.4 - 10.2 mg/dL [facility] Blood Venous blood specimen / Unknown 06/05/2025 10:50 AM EDT 06/05/2025 11:35 AM EDT us Jyoti Berry MD LAB BLOOD ORDERABLES Final Result [facility] [address] [place], [place] [phone] * Lipid Panel, Standard (12/23/2024 8:56 AM EDT) Triglycerides 121 <150 mg/dL [facility] Comment:Desirable Triglyceri de: less than 150 mg/dLBorderline High Triglyceride 150-199 mg/dLHigh Triglyceride: 200-499 mg/dLVery High Triglyceride: greater than or equal to 5OO mg/dL Cholesterol 153 <200 mg/dL [facility] Comment:Desirable Cholestero l: less than 200 mg/dLBorderline High Cholesterol: 200-239 mg/dLHigh Cholesterol: greater than 239 mg/dL LDL Cholesterol Calculated 88 <100 mg/dL [facility] Comment:Desirable LDL: less than 100 mg/dLNear Optimal/Above Optimal LDL: 110- 129 mg/dLBorderline High LDL: 130-159 mg/dLHigh LDL: 160-189 mg/dLVery High LDL: greater than or equal to 190 mg/dL HDL Cholesterol 41 >40 mg/dL [facility] Comment:Desirable HDL: great er than 40 mg/dL Note: This HDL assay may give artificially low results in patients with liver disease. Blood Venous blood specimen / Unknown 12/23/2024 8:56 AM EDT 12/23/2024 8:56 AM EDT Jyoti Berry MD LAB BLOOD ORDERABLES Final Result Performing Organization Address City/[facility]/ZIP Co de Phone Number [facility] [address] [place] [address] [phone] * Hepatitis C Viral RNA, Quantitative, Real-Time PC (08/19/2022 9:17 AM EST) [facility] HCV RNA, QN Real Time PCR <15 NOT DETECTED NOT DETECTED IU/mL [facility] [employer] HCV RNA QN Real Time PCR <1.18 NOT DETECTED NOT DETECTED Log IU/mL [facility] [employer] Comment: This test was performed using Real-Time Polymerase Chain Reaction. Reportable Range: 15 IU/mL to 100,000,000 IU/mL (1.18 Log IU/mL to 8.00 Log IU/mL). The analytical performance characteristics of this assay have been determined by [facility]. The modifications have not been cleared or approved by the FDA. This assay has been validated pursuant to the CLIA regulations and is used for clinical purposes. For more information on this test, go to: http://education.curated.by/faq/VZW21e8 (This link is being provided for informational/ educational purposes only.) 08/19/2022 9:17 AM EST 08/19/2022 9:17 AM EST Jyoti Berry MD LAB BLOOD ORDERABLES Final Result Performing Organization Address City/[facility]/ZIP Co de Phone Number [facility] [address] [facility], [address], [place] [address] [facility] [address] [facility], (Nl2) [place] [address] * HIV-1/2 Antigen and Antibodies, Fourth Generation, with Reflexes (08/19/2022 9:17 AM EST) HIV Antigen/Antibody, 4th Generation NON-REAC TIVE NON-REAC TIVE [facility] Comment: HIV-1 antigen and HIV-1/HIV-2 antibodies were not detected. There is no laboratory evidence of HIV infection. PLEASE NOTE: This information has been disclosed to you from records whose confidentiality may be protected by state law. If your state requires such protection, then the state law prohibits you from making any further disclosure of the information without the specific written consent of the person to whom it pertains, or as otherwise permitted by law. A general authorization for the release of medical or other information is NOT sufficient for this purpose. For additional information please refer to http://education.curated.by/faq/IVR305 (This link is being provided for informational/ educational purposes only.) The performance of this assay has not been clinically validated in patients less than 2 years old. Blood Venous blood specimen / Unknown 08/19/2022 9:17 AM EST 08/19/2022 9:17 AM EST Jyoti Berry MD LAB BLOOD ORDERABLES Final Result [facility] [address], [place] [address] [facility] [address] [facility], (Nl2) [place] [address] from Last 3 Months or Most Recently Relevant to Health Maintenance Insurance [facility] 3 DENTAL - HSN PARTIAL (MEDICAID) Advance Directives Documents on File Type Date Recorded Patient Head Paper Tester Expl anation Advance Directives and Living Will 03/27/2024 Health Care Proxy 03/27/24 Care Teams Quantitative Analyst Relationship Specialty Start Date End Date [place], [place] Jyoti [address] [place] [address] PCP - General Family Medicine 09/04/18 Jude Brothers MD [address] [place] [address] 3rd [place] [address] General Surgery 07/24/24 Radha Quispe MD [address] [place] [phone] (Work) Sleep Medicine 07/29/24 Molly Trevino [address] [place] [address] Drive 3rd [place] [address] Gastroenterology 08/06/24
--- OUTSIDE RECORDS SUMMARY | 2025-06-05 12:35 | XMS_ITS | Encounter Summary ---
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 Not on file Not on file documented as of this encounter Functional Status * Question Answer Date of Assessment Author Feeling nervous, anxious, or on edge 0 06/05/2025 [...] 10:27 AM EDT Jyoti Berry MD * Feeling bad about yourself - or that you are a failure or have let yourself or your family down Answer Date of Assessment Author Not at all 06/05/2025 10:27 AM EDT Jyoti Berry MD * Trouble concentrating on things, such as reading the newspaper or watching television Answer Date of Assessment Author Not at all 06/05/2025 10:27 AM EDT Jyoti Berry MD * Moving or speaking so slowly that other people could have noticed? Or the opposite - being so fidgety or restless that you have been moving around a lot more than usual. Answer Date of Assessment Author Not at all 06/05/2025 10:27 AM EDT Jyoti Berry MD * Thoughts that you would be better off or hurting yourself in some way Answer Date of Assessment Author Not at all 06/05/2025 10:27 AM EDT Jyoti Berry MD * Patient Health Questionnaire-9 Score Answer Date of Assessment Author 1 06/05/2025 10:27 AM EDT Jyoti Berry MD documented as of this encounter Plan of Treatment Upcoming Encounters Date Type Department Care Team (Late st Contact Info) Description 06/09/2025 10:00 AM EDT Office Visit [facility] [address] [place] [address] Suzie Calhoun BDS [address] [place] [address] 11/10/2025 10:00 AM EDT Office Visit [facility] [address] [place] [address] Sharmin Renteria [address] [place] [address] [phone] documented as of this encounter Goals Goal Patient Goal Type Associated Problems Recent Progress Patient-Stated? Author Blood Pressure < 140/90 Blood Pressure 132/82( 025 10:31 AM EDT) No Keysha Tavares, PharmD documented as of this encounter Visit Diagnoses Not on filedocumented in this encounter Additional Health Concerns Assessment Noted Time PHQ-9 Depression Total Score: 1 06/05/20 25 10:27 AM EDT documented as of this encounter Care Teams Program Support Clerk Relationship Specialty Start Date End Date Jyoti Berry MD [address] [place] [address] PCP - General Family Medicine 09/04/18 Jude Brothers MD [address] [place] [address] General Surgery 07/24/24 Radha Quispe MD 100 [facility] [address] [place] [address] Sleep Medicine 07/29/24 Molly Trevino [address] [place] [address] Gastroenterology 08/06/24 documented as of this encounter
--- OUTSIDE RECORDS SUMMARY | 2025-06-05 12:36 | XMS_ITS | Encounter Summary ---
Author Organization [employer] Address 75 [facility] 7t [place] [address] Care Team Providers Care Compound Specialist Name Role Phone Jyoti Berry MD Primary Care Provider [phone] Jude Brothers MD Unavailable [phone] Radha Quispe MD Unavailable Molly Trevino Unavailable Reason for Visit * Reason Onset Date Comments chart prep 06/04/2025 Encounter Details Date Type Department Care Team (Late st Contact Info) Description 06/04/2025 Telephone [facility]INE 230 [place], [place] [phone] Jyoti Berry MD 230 [place] [address] chart prep Social History Tobacco Use Types Packs/Day Years [...] 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 on file Not on file documented as of this encounter Miscellaneous Notes * Telephone Encounter - Luis Monsivais [place] - 06/04/2025 2:26 PM EDT Chart Prep Labs: not done Images: done Referrals: complete Vaccines due: Covid and Flu Screenings: not applicable Overdue care gaps: PHQ-9, DANTE-7, and Disability screen documented in this encounter Plan of Treatment Upcoming Encounters Date Type Department Care Team (Late st Contact Info) Description 06/09/2025 10:00 AM EDT Office Visit [facility] [address] [place], [place] [phone] Suzie Calhoun BDS [address] [place], [place] [phone] 11/10/2025 10:00 AM EDT Office Visit [facility] [address] [place], [place] [phone] Sharmin Renteria [address] [place], [place] [phone] documented as of this encounter Goals Goal Patient Goal Type Associated Problems Recent Progress Patient-Stated? Author Blood Pressure < 140/90 Blood Pressure 132/82( 025 10:31 AM EDT) No Keysha Tavares, CodeyD documented as of this encounter Visit Diagnoses Not on filedocumented in this encounter Additional Health Concerns Assessment Noted Time PHQ-9 Depression Total Score: 4 03/27/20 24 2:25 PM EDT documented as of this encounter Care Teams Compound Specialist Relationship Specialty Start Date End Date Jyoti Berry MD [address] [place] [address] PCP - General Family Medicine 09/04/18 Jude Brothers MD [address] [place] [address] General Surgery 07/24/24 Radha Quispe MD [address] [address] Sleep Medicine 07/29/24 Molly Trevino [address] [place] [address] Gastroenterology 08/06/24 documented as of this encounter
--- OUTSIDE RECORDS SUMMARY | 2025-06-05 12:36 | XMS_ITS | Encounter Summary ---
Author Organization [employer] Address 75 [facility] 7t [place] [address] Care Team Providers Care Child Care Team Lead Name Role Phone Jyoti Berry MD Primary Care Provider + [phone] Keysha Jarvis PharmD Unavailable [phone] Jude Brothers MD Unavailable [phone] Radha Quispe MD Unavailable Molly Trevino Unavailable Reason for Visit * Reason Onset Date Comments Med Refill 02/10/2025 Encounter Details Date Type Department Care Team (Late st Contact Info) Description 02/10/2025 Refill [facility] MEDICINE [address] [place], [place] [phone] Jyoti Berry MD [address] [place], [place] [phone] Dyslipidemia Social History Tobacco Use Types Packs/Day [...] 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 Author Blood Pressure < 140/90 Blood Pressure 132/82( 025 10:31 AM EDT) No Keysha Tavares PharmD documented as of this encounter Visit Diagnoses Diagnosis Dyslipidemia Other and unspecified hyperlipidemia documented in this encounter Additional Health Concerns Assessment Noted Time PHQ-9 Depression Total Score: 4 03/27/20 24 2:25 PM EDT documented as of this encounter Care Teams Child Care Team Lead Relationship Specialty Start Date End Date Jyoti Berry MD [address] [place] [address] PCP - General Family Medicine 09/04/18 Keysha Jarvis PharmD [address] [place] [address] Pharmacist Internal Medicine 01/05/23 04/29/25 Jude Brothers MD [address] [place] [address] General Surgery 07/24/24 Radha Quispe MD [address] [address] Sleep Medicine 07/29/24 Molly Trevino [address] [place] [address] Gastroenterology 08/06/24 documented as of this encounter
--- OUTSIDE RECORDS SUMMARY | 2025-06-05 12:36 | XMS_ITS | Encounter Summary ---
Author Organization [employer] Address 75 [facility] 7t [place] [address] Care Team Providers Care Metal Solderer Name Role Phone Jyoti Berry MD Primary Care Provider + [phone] Keysha Jarvis PharmD Unavailable [phone] Jude Brothers MD Unavailable [phone] Radha Quispe MD Unavailable Molly Trevino Unavailable Encounter Details Date Type Department Care Team (Late st Contact Info) Description 06/04/2024 Telephone [facility] MEDICINE [address] [place], [place] [phone] Keysha Jarvis, PharmD 230 [place] [address] Social History Tobacco Use Types Packs/Day Years [...] 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 on 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 Not [...] 06/09/2025 10:00 AM EDT Office Visit [facility] [address] [place] [address] Suzie Calhoun BDS [address] [place], [place] [phone] 11/10/2025 10:00 AM EDT Office Visit [facility] 91 [place], [place] [phone] Dexter, Sharmin [address] [place], [place] [phone] documented as of this encounter Goals Goal [...] documented as of this encounter Care Teams Metal Solderer Relationship Specialty Start Date End Date Jyoti Berry MD [address] [place] [address] PCP - General Family Medicine 09/04/18 Keysha Jarvis, PharmD [address] [place] [address] Pharmacist Internal Medicine 01/05/23 04/29/25 Jude Brothers MD [address] [place] [address] General Surgery 07/24/24 Radha Quispe MD 100 [facility] [address] [place] [address] Sleep Medicine 07/29/24 Molly Trevino [address] [address] Gastroenterology 08/06/24 documented as of this encounter
--- OUTSIDE RECORDS SUMMARY | 2025-06-05 12:36 | XMS_ITS | Encounter Summary ---
Author Organization [employer] Address [address] [place] [address] 7t [place] [address] Care Team Providers Care Director Of [facility] [facility] Name Role Phone Jyoti Berry MD Primary Care Provider + [phone] Keysha Jarvis PharmD Unavailable [phone] Jude Brothers MD Unavailable [phone] Radha Quispe MD Unavailable Molly Trevino Unavailable Reason for Visit * Reason Onset Date Comments Med Refill 05/29/2023 Encounter Details Date Type Department Care Team (Late st Contact Info) Description 05/29/2023 Refill [facility] 230 [place], [place] [phone] Jyoti Berry MD 230 [place], [place] [phone] Essential hypertension Social History Tobacco Use Types [...] 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 Author Blood Pressure < 140/90 Blood Pressure 132/82( 025 10:31 AM EDT) No Keysha Tavares, PharmD documented as of this encounter Visit Diagnoses Diagnosis Essential hypertension Unspecified essential hypertension documented in this encounter Care Teams Director Of [facility] [employer] [facility] Relationship Specialty Start Date End Date Jyoti Berry MD [address] [place] [address] PCP - General Family Medicine 09/04/18 Keysha Jarvis, PharmD [address] [place] [address] Pharmacist Internal Medicine 01/05/23 04/29/25 Jude Brothers MD [address] [place] [address] 3rd [place] [address] General Surgery 07/24/24 Radha Quispe MD [address] [address] Sleep Medicine 07/29/24 Molly Trevino [address] 3rd [place] [address] Gastroenterology 08/06/24 documented as of this encounter
--- OUTSIDE RECORDS SUMMARY | 2025-06-05 12:36 | XMS_ITS | Encounter Summary ---
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 He can do it at visit tomorrow if he can't come in today. He can also get it drawn at the hospital. Thank you. documented in this encounter Plan of Treatment Upcoming Encounters Date Type Department Care Team (Late st Contact Info) Description 06/09/2025 10:00 AM EDT Office Visit [facility] D[facility] [address] [place] [address] [phone] Suzie Calhoun BDS [address] [place] [address] 11/10/2025 10:00 AM EDT Office Visit [facility] 91 [place], [place] [phone] Dexter, Sharmin 91 [place], [place] [phone] documented as of this encounter Goals Goal [...] documented as of this encounter Care Teams Daycare Director Relationship Specialty Start Date End Date Jyoti Berry MD 230 [place] [address] PCP - General Family Medicine 09/04/18 Jude Brothers MD [address] [place] [address] General Surgery 07/24/24 Radha Quispe MD 100 [facility] 360 [place] [address] Sleep Medicine 07/29/24 Molly Trevino [address] [place] [address] Gastroenterology 08/06/24 documented as of this encounter
--- OUTSIDE RECORDS SUMMARY | 2025-06-05 12:36 | XMS_ITS | Encounter Summary ---
Author Organization [employer] Address [address] [facility] 7t [place] [address] Care Team Providers Care Dosimetrist Name Role Phone Jyoti Berry MD Primary Care Provider + [phone] Keysha Jarvis PharmD Unavailable [phone] Jude Brothers MD Unavailable [phone] Radha Quispe MD Unavailable Molly Trevino Unavailable Reason for Visit * Reason Onset Date Comments Nurse Triage 01/02/2025 Encounter Details Date Type Department Care Team (Late st Contact Info) Description 01/02/2025 Telephone [facility] MEDICINE 230 [place], [place] [phone] Jyoti Berry MD 230 [place], [place] [phone] Nurse Triage Social History Tobacco Use Types Packs/Day Years [...] 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 LVM for patient to contact Carmen Handley at [phone]. * Telephone Encounter - Bridget Feliciano RN - 01/06/2025 10:28 AM EDT Triage call regarding Pt portal message below. Pt reports possible sinus infection with pressure behind eyes and lightheadedness. Pt reports some dizziness and BP was 150/90 today. Pt continues to take BP meds as prescribed. Pt is advised to come to [facility] today to be seen by provider, no available apts with PCP today or tomorrow. Pt agrees with disposition and will come to [facility] . Hours given open till 8pm today. Pt is advised to continue to drink plenty of liquids and agrees. Insurance is verifiedas active. Protocol Used: Sinus Pain or Congestion (Adult) Protocol-Based Disposition: See in Office or Video Visit Today or Tomorrow Video visit not offered Positive Triage Questions: * Sinus congestion (pressure, fullness) present > 10 days * Patient wants to be seen * All higher-acuity triage questions were negative Care Advice Discussed: * Reassurance and Education - Colds and Sinus Congestion * Hydration * Reasons To Call Back - Severe pain lasts over 2 hours after pain medicine - Sinus pain lasts over 1 day after using nasal washes - Sinus congestion (fullness) lasts over 10 days - Fever lasts over 3 days - You become worse * Telephone Encounter - Evon Avina RN - 01/02/2025 1:42 PM EDT Telephone call placed to pt regarding below message. Informed PCP out of office right now. Mild dizziness can be a side effect of allopurinol, try to take pill at night to minimize dizziness during the day and maximize medication efficacy. Don't drive if feeling dizzy. Blood pressure elevated. Typically allopurinol lowers blood pressure. Advised to continue blood pressure meds. If blood pressure >170/100 or if having CP or severe H/A, go to the ED. Gave hours of operation for [facility] as well as Monday hours. Informed of NTTS in case he has any questions or concerns when we aren't open. Informed will send message to PCP and will call when I hear back but if any other concerns, please call back. Pt agrees with plan. * Telephone Encounter - Yenny Robin RN - 01/02/2025 1:11 PM EDT Called pt. Pt. Is currently on Allopurinol for elevated Uric acid levels and he has been having slightly elevated BP's x past couple days. Current BP is 158/73. Pt. States that when his BP is elevated he does feel slightly dizzy. No chest pain, No SOB, no other signs of NC. Pt. Unsure what providerwants to do as he states I will be on this med for a while due to my elevated labs . Pt. Currentlyon Losartan 50mg once daily and on Allopurinol 100mg once daily. Please advise. Protocol Used: Blood Pressure - High (Adult) Protocol-Based Disposition: See in Office or Video Visit within 2 Weeks Video visit not offered Positive Triage Question: * Systolic BP >= 130 OR Diastolic >= 80, and is taking BP medications * All higher-acuity triage questions were negative Care Advice Discussed: * High Blood Pressure * Telephone Encounter - Cortney Ibarra - 01/02/2025 12:53 PM EDT Symptoms: Medication Reaction, High Blood Pressure - Caller Reports Outcome: Schedule an urgent appointment (within 1 hour) or talk to a nurse or provider soon Reason: Caller denied all higher acuity questions The caller accepted this outcome. [phone] B/p reading (153/78) Medication: allopurinol (Zyloprim) 100 MG tablet documented in this encounter Plan of Treatment Upcoming Encounters Date Type Department Care Team (Late st Contact Info) Description 06/09/2025 10:00 AM EDT Office Visit [facility] DENTAL [address] [place] [address] Suzie Calhoun BDS [address] [place], [place] [phone] 11/10/2025 10:00 AM EDT Office Visit [facility] DENTAL [address] [place] [address] [phone] Sharmin Renteria [address] [place], [place] [phone] documented as of this encounter Goals Goal [...] documented as of this encounter Care Teams Dosimetrist Relationship Specialty Start Date End Date Jyoti Berry MD 230 [place] [address] PCP - General Family Medicine 09/04/18 Keysha Jarvis, PharmD [address] [place] [address] Pharmacist Internal Medicine 01/05/23 04/29/25 Jude Brothers MD [address] [place] [address] General Surgery 07/24/24 Radha Quispe MD [address] [address] Sleep Medicine 07/29/24 Molly Trevino [address] [place] [address] Gastroenterology 08/06/24 documented as of this encounter
--- OUTSIDE RECORDS SUMMARY | 2025-06-05 12:36 | XMS_ITS | Encounter Summary ---
Author Organization [employer] Address [address] [place] [address] 7t [place] [address] Care Team Providers Care Engraver Hand Soft Metals Name Role Phone Jyoti Berry MD Primary Care Provider + [phone] Keysha Jarvis PharmD Unavailable [phone] Jude Brothers MD Unavailable [phone] Radha Quispe MD Unavailable Molly Trevino Unavailable Reason for Referral * Consultation (Routine) - Closed Specialty Diagnoses / Procedures Referred By Contvanessa t Referred To Contact General Surgery Diagnoses Epidermoid cyst of skin of scalp Jyoti Berry MD [address] [place] [address] Phone: tel: fax: Jude Brothers MD [address] [place] [address] [address] [place] [address] Phone: tel: fax: Referral ID Status Reason Start Date Expiration Date V isits Requested Visits Authorized [id number] Closed Specialty Services Required 04/01/2024 04/01/2025 1 1 Encounter Details Date Type Department Care Team (Late st Contact Info) Description 04/01/2024 Orders Only [facility] MEDICINE 230 [place] [address] Jyoti Berry MD 230 [place], [place] [phone] Epidermoid cyst of skin of scalp (Primary [...] 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 Not on file Not on file documented as of this encounter Plan of Treatment Upcoming Encounters Date Type Department Care Team (Late st Contact Info) Description 06/09/2025 10:00 AM EDT Office Visit [facility] DENTAL 91 [place] [address] Suzie Calhoun BDS 91 [place], [place] [phone] 11/10/2025 10:00 AM EDT Office Visit [facility] DENTAL 91 [place] [address] Dexter, Sharmin 91 [place] [address] Scheduled Referrals Name Type Priority Associated Diagnoses [...] documented as of this encounter Care Teams Engraver Hand Soft Metals Relationship Specialty Start Date End Date Jyoti Berry MD [address] [place] [address] PCP - General Family Medicine 09/04/18 Keysha Jarvis, PharmD [address] [place] [address] Pharmacist Internal Medicine 01/05/23 04/29/25 Jude Brothers MD [address] [place] [address] 3rd [place] [address] General Surgery 07/24/24 Radha Quispe MD 100 [facility] [address] [place] [address] Sleep Medicine 07/29/24 Molly Trevino [address] 3rd [place] [address] Gastroenterology 08/06/24 documented as of this encounter
--- OUTSIDE RECORDS SUMMARY | 2025-06-05 12:36 | XMS_ITS | Encounter Summary ---
Author Organization [employer] Address [address] [place] [address] 7t [place] [address] Care Team Providers Care Planting Material Carrier Name Role Phone Jyoti Berry MD Primary Care Provider + [phone] Keysha Jarvis PharmD Unavailable [phone] Jude Brothers MD Unavailable [phone] Radha Quispe MD Unavailable Molly Trevino Unavailable Encounter Details Date Type Department Care Team (Late st Contact Info) Description 01/12/2023 Abstract [facility] MEDICINE 230 [place], [place] [phone] Jyoti Berry MD 230 [place], [place] [phone] Social History Tobacco Use Types Packs/Day Years [...] 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 No / Unsure 01/05/2023 9:15 AM EDT documented as of this encounter Plan of Treatment Upcoming Encounters Date Type Department Care Team (Late st Contact Info) Description 06/09/2025 10:00 AM EDT Office Visit [facility] DENTAL [address] [place] [address] Suzie Calhoun BDS 91 [place], [place] [phone] 11/10/2025 10:00 AM EDT Office Visit [facility] DENTAL [address] [place] [address] [phone] Sharmin Renteria 91 [place] [address] documented as of this encounter Goals Goal [...] on filedocumented in this encounter Care Teams Planting Material Carrier Relationship Specialty Start Date End Date Jyoti Berry MD [address] [place] [address] PCP - General Family Medicine 09/04/18 Keysha Jarvis, Silvino 230 [place] [address] Pharmacist Internal Medicine 01/05/23 04/29/25 Jude Brothers MD [address] [place] [address] General Surgery 07/24/24 Radha Quispe MD 100 [facility] [address] [place] [address] Sleep Medicine 07/29/24 Molly Trevino [address] [place] [address] Gastroenterology 08/06/24 documented as of this encounter
--- OUTSIDE RECORDS SUMMARY | 2025-06-05 12:36 | XMS_ITS | Encounter Summary ---
Author Organization [employer] Address 75 [facility] 7t [place] [address] Care Team Providers Care Terrazzo Tile Setter Name Role Phone Jyoti Berry MD Primary Care Provider + [phone] Keysha Jarvis PharmD Unavailable [phone] Jude Brothers MD Unavailable [phone] Radha Quispe MD Unavailable Molly Trevino Unavailable Encounter Details Date Type Department Care Team (Latest Contact Info) Description 08/12/2019 Abstract [facility] CONVERSIONS Dental, Provider, DDS Social History Tobacco [...] Description 06/09/2025 10:00 AM EDT Office Visit [facility] DENTAL [address] [place] [phone] Suzie Calhoun BDS 91 [place], [place] [phone] 11/10/2025 10:00 AM EDT Office Visit [facility] DENTAL [address] [place] [address] Sharmin Renteria [address] [place] [address] documented as of this encounter Visit Diagnoses Not on filedocumented in this encounter Care Teams Terrazzo Tile Setter Relationship Specialty Start Date End Date Jyoti Berry MD 230 [place] [address] PCP - General Family Medicine 09/04/18 Keysha Jarvis, CodeyD 230 [place] [address] Pharmacist Internal Medicine 01/05/23 04/29/25 Jude Brothers MD [address] [place] [address] General Surgery 07/24/24 Radha Quispe MD 100 [facility] 360 [place] [address] Sleep Medicine 07/29/24 Molly Trevino [address] [place] [address] Gastroenterology 08/06/24 documented as of this encounter
== END 2025-06-05 10:46 | disposition home or self-care (01) ==
LOC: HO.HHCL 10:45
PROVIDERS: PCP Family Medicine; Visit Provider Family Medicine
DX: I10 Essential (primary) hypertension (principal); M10.9 Gout, unspecified; R53.83 Other fatigue; R63.5 Abnormal weight gain
CPT/HCPCS: 36415; 80048; 84443; 84550

== ENCOUNTER 2025-08-25 09:52 | Outpatient (AMB) | payer OTHER, SELFPAY ==
--- NOTE | 2025-08-25 09:55 | A.OFFVIS_ITS ---
Vital Signs 3 08/25/25 09:59 Height 5 ft 10 in Weight 248 lb 0.321 oz BMI 35.6 BP 122/72 Blood Pressure Location Lt brachial Position Sitting Intake Visit Reasons: multiple cyst (1 anglican, 2 back, 1 jawline) Intake Note: Patient is seen in office for evaluation of multiple lipomas of the skin. Pt c/o: 2 cyst in the back of the head, was painful for a week, unsure if its scar tissue, has another in the jaw line, denies discharge, would like to have them removed Crib Tender Required: No Accompanied by: Self / Same As Patient Allergies No Known Allergies (No Known Allergies*) Allergy (Verified 08/25/25 09:59) Medication List - Last Reconciled 08/25/25 by Jude Brothers MD blood pressure test kit-large As directed chlorthalidone 25 mg PO DAILY lisinopril 20 mg PO DAILY naproxen 500 mg PO Q12H PRN omega 4-kpz-vch-fish oil 300 mg (120 mg- 180mg)-1,000 mg caps PO prednisone 50 mg PO DAILY 4 days HPI Comments Details: Gunnar returns to the office for evaluation of 2 new scalp lesions and a 3rd lesion located in front of his left ear along the jawline. All 3 lesions have developed within the past year and have not changed significantly since then. He did report some initial pain associated 1 of the lesions in the posterior scalp which is close to where a previous cyst was excised. This has subsequently improved and he is no longer having any pain or discharge. [facility] Medical History Arthritis GERD (gastroesophageal reflux disease) Diverticulitis Obstructive sleep apnea Hypertension Surgical History Hx of colonoscopy History of epidermal inclusion cyst excision (06/06/17) Hx of removal of cyst Family History Father Diabetes Mother No problems noted. 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 Lesion posterior scalp to the left of midline consistent with a previous incision/scar tissue with no underlying cyst palpable. This has well healed with no evidence of infection. 2. Second spot in the lower midline is non mobile and actually appears to be part of the calvarium rather than a cyst. 3. Region of the 3rd cyst which is no longer palpable or visible. 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 One of the lesions is scar tissue from the previous excisions site and no further surgical intervention is required at this location. The 2nd location in the posterior scalp appears more consistent with a bony growth rather than a cyst. This would be best left alone. The 3rd lesion in the left face has subsequently subsided in his no longer visible or palpable. Observation is recommended for all 3 sites. He should follow up as needed. Coding Level of Care Code Est Pt Level 3 (39721) Diagnoses Pilar cyst L72.11
[2025-08-25 09:59] VITALS: BP 122/72; BMI 35.6
--- OUTSIDE RECORDS SUMMARY | 2025-08-25 11:40 | XMS_ITS | Encounter Summary ---
Author Organization [employer] Address 75 [facility] 7t [place] [address] Care Team Providers Care Literacy Education Professor Name Role Phone Jyoti Berry MD Primary Care Provider [phone]- [phone] Keysha Jarvis PharmD Unavailable [phone]- [phone] Jude Brothers MD Unavailable [phone] Radha Quispe MD Unavailable Molly Trevino Unavailable Encounter Details Date Type Department Care Team (Late st Contact Info) Description 06/04/2024 Telephone [facility] MEDICINE 230 [place] [address] Keysha Jarvis, PharmD 230 [place] [address] Social History Tobacco Use Types Packs/Day Years [...] 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 Referral has been pended to this TC note. Thank you! documented in this encounter Plan of Treatment Not on file documented as of this encounter Goals Goal Patient Goal Type Associated Problems Recent Progress Patient-Stated? Author Blood Pressure < 140/90 Blood Pressure 132/82( 025 10:31 AM EDT) Keysha Cote PharmD documented as of this encounter Visit Diagnoses Diagnosis Essential hypertension- Primary Unspecified essential hypertension documented in this encounter Additional Health Concerns Assessment Noted Time PHQ-9 Depression Total Score: 4 03/27/20 24 2:25 PM EDT documented as of this encounter Care Teams Literacy Education Professor Relationship Specialty Start Date End Date Jyoti Berry MD 230 [place] [address] PCP - General Family Medicine 09/04/18 Keysha Jarvis PharmD 230 [place] [address] Pharmacist Internal Medicine 01/05/23 04/29/25 Jude Brothers MD [address] [place] [address] General Surgery 07/24/24 Radha Quispe MD 100 [facility] 360 [place] [address] Sleep Medicine 07/29/24 Molly Trevino [address] [place] [address] Gastroenterology 08/06/24 documented as of this encounter
--- OUTSIDE RECORDS SUMMARY | 2025-08-25 11:40 | XMS_ITS | Encounter Summary ---
Author Organization [employer] Address [address] [place] [address] 7t [place] [address] Care Team Providers Care Choir Singer Name Role Phone Jyoti Berry MD Primary Care Provider [phone]- [phone] Keysha Jarvis PharmD Unavailable [phone]- [phone] Jude Brothers MD Unavailable [phone] Radha Quispe MD Unavailable Molly Trevino Unavailable Reason for Visit * Reason Onset Date Comments Med Refill 05/29/2023 Encounter Details Date Type Department Care Team (Late st Contact Info) Description 05/29/2023 Refill [facility] MEDICINE 230 [place], [place] [phone] Jyoti Berry MD 230 [place], [place] [phone] Essential hypertension Social History Tobacco Use Types [...] 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 Author Blood Pressure < 140/90 Blood Pressure 132/82( 025 10:31 AM EDT) No Keysha Tavares PharmD documented as of this encounter Visit Diagnoses Diagnosis Essential hypertension Unspecified essential hypertension documented in this encounter Care Teams Choir Singer Relationship Specialty Start Date End Date Jyoti Berry MD 230 [place] [address] PCP - General Family Medicine 09/04/18 Keysha Jarvis, PharmD [address] [place] [address] Pharmacist Internal Medicine 01/05/23 04/29/25 Jude Brothers MD [address] [place] [address] General Surgery 07/24/24 Radha Quispe MD [address] [place] [address] Sleep Medicine 07/29/24 Molly Trevino [address] [place] [address] Gastroenterology 08/06/24 documented as of this encounter
--- OUTSIDE RECORDS SUMMARY | 2025-08-25 11:40 | XMS_ITS | Encounter Summary ---
Author Organization [employer] Address [address] [place] [address] 7t [place] [address] Care Team Providers Care Naval Gunfire Liaison Officer Name Role Phone Jyoti Berry MD Primary Care Provider [phone]- [phone] Keysha Jarvis PharmD Unavailable [phone]- [phone] Jude Brothers MD Unavailable [phone] Radha Quispe MD Unavailable Molly Trevino Unavailable Encounter Details Date Type Department Care Team (Late st Contact Info) Description 01/12/2023 Abstract [facility] MEDICINE 230 [place], [place] [phone] Jyoti Berry MD 230 [place] [address] Social History Tobacco Use Types Packs/Day Years [...] 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 [address] [place] [address] Sleep Medicine 07/29/24 Molly Trevino [address] [place] [address] Drive 3rd [place] [address] Gastroenterology 08/06/24 documented as of this encounter
--- OUTSIDE RECORDS SUMMARY | 2025-08-25 11:40 | XMS_ITS | Encounter Summary ---
Author Organization [employer] Address [address] [place] [address] 7t [place] [address] Care Team Providers Care Color Straining Bag Washer Name Role Phone Jyoti Berry MD Primary Care Provider +- [phone] Keysha Jarvis PharmD Unavailable [phone] Jude Brothers MD Unavailable [phone] Radha Quispe MD Unavailable Molly Trevino Unavailable Reason for Visit * Reason Onset Date Comments Med Refill 02/10/2025 Encounter Details Date Type Department Care Team (Late st Contact Info) Description 02/10/2025 Refill [facility] MEDICINE 230 [place], [place] [phone] Jyoti Berry MD 230 [place], [place] [phone] Dyslipidemia Social History Tobacco Use Types Packs/Day [...] 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
--- OUTSIDE RECORDS SUMMARY | 2025-08-25 11:40 | XMS_ITS | Encounter Summary ---
Author Organization [employer] Address [address] [place] [address] 7 [place] [address] Care Team Providers Care Cosmetologist Name Role Phone Jyoti Berry MD Primary Care Provider + [phone] Keysha Jarvis PharmD Unavailable [phone] Jude Brothers MD Unavailable [phone] Radha Quispe MD Unavailable Molly Trevino Unavailable Encounter Details Date Type Department Care Team (Latest Contact Info) Description 08/12/2019 Abstract [facility] CONVERSIONS Dental, Provider, DDS Social History [...] on file documented as of this encounter Visit Diagnoses Not on filedocumented in this encounter Care Teams Cosmetologist Relationship Specialty Start Date End Date Jyoti Berry MD 230 [place], [place] [phone] PCP - General Family Medicine 09/04/18 Keysha Jarvis, PharmD 230 [place], [place] [phone] Pharmacist Internal Medicine 01/05/23 04/29/25 Jude Brothers MD [address] [address] General Surgery 07/24/24 Radha Quispe MD [address] [place] [address] Sleep Medicine 07/29/24 Molly Trevino [address] [place] [address] Gastroenterology 08/06/24 documented as of this encounter
--- OUTSIDE RECORDS SUMMARY | 2025-08-25 11:40 | XMS_ITS | Encounter Summary ---
Author Organization [employer] Address [address] [place] [address] 7t [place] [address] Care Team Providers Care Fsr Name Role Phone Jyoti Berry MD Primary Care Provider +- [phone] Keysha Jarvis PharmD Unavailable [phone] Jude Brothers MD Unavailable [phone] Radha Quispe MD Unavailable Molly Trevino Unavailable Reason for Referral * Consultation (Routine) - Closed Specialty Diagnoses / Procedures Referred By Bharaht cast Referred To Contact General Surgery Diagnoses Epidermoid cyst of skin of scalp Jyoti Berry MD [address] [place] [address] Phone: tel: fax: Jude Brothers MD [address] [place] [address] 3rd [place] [address] Phone: tel: fax: Referral ID Status Reason Start Date Expiration Date V isits Requested Visits Authorized [id number] Closed Specialty Services Required 04/01/2024 04/01/2025 1 1 Encounter Details Date Type Department Care Team (Late st Contact Info) Description 04/01/2024 Orders Only [facility] MEDICINE [address] [place] [address] Jyoti Berry MD [address] [place], [place] [phone] Epidermoid cyst of skin of scalp (Primary [...] 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 Not on file documented as of this encounter Plan of Treatment Scheduled Referrals Name Type Priority Associated Diagnoses [...] documented as of this encounter Care Teams Fsr Relationship Specialty Start Date End Date Jyoti Berry MD [address] [place] [address] PCP - General Family Medicine 09/04/18 Keysha Jarvis, PharmD [address] [place] [address] Pharmacist Internal Medicine 01/05/23 04/29/25 Jude Brothers MD [address] [place] [address] General Surgery 07/24/24 Radha Quispe MD [address] [address] Sleep Medicine 07/29/24 Molly Trevino [address] [place] [address] Gastroenterology 08/06/24 documented as of this encounter
--- OUTSIDE RECORDS SUMMARY | 2025-08-25 11:40 | XMS_ITS | Encounter Summary ---
Author Organization [employer] Address [address] [place] [address] 7t [place] [address] Care Team Providers Care Machine Joint Cutter Name Role Phone Jyoti Berry MD Primary Care Provider [phone] Keysha Jarvis PharmD Unavailable [phone] Jude Brothers MD Unavailable [phone] Radha Quispe MD Unavailable Molly Trevino Unavailable Reason for Visit * Reason Onset Date Comments Nurse Triage 01/02/2025 Encounter Details Date Type Department Care Team (Late st Contact Info) Description 01/02/2025 Telephone [facility] MEDICINE [address] [place], [place] [phone] Jyoti Berry MD [address] [place] [address] Nurse Triage Social History Tobacco Use Types [...] 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 LVM for patient to contact Carmen Handley at [phone]. * Telephone Encounter - Bridget Feliciano RN - 01/06/2025 10:28 AM EDT Triage call regarding Pt portal message below. Pt reports possible sinus infection with pressure behind eyes and lightheadedness. Pt reports some dizziness and BP was 150/90 today. Pt continues to take BP meds as prescribed. Pt is advised to come to [facility] today to be seen by provider, no available apts with PCP today or tomorrow. Pt agrees with disposition and will come to [facility] . Hours given open till 8pm [...] the ED. Gave hours of operation for [facility] as well as Monday hours. Informed [...] pain, No SOB, no other signs of [place]. Pt. Unsure what providerwants to do as [...] acuity questions The caller accepted this outcome. [phone] B/p reading (153/78) Medication: allopurinol (Zyloprim) 100 [...] documented as of this encounter Care Teams Machine Joint Cutter Relationship Specialty Start Date End Date Jyoti Berry MD [address] [place] [address] PCP - General Family Medicine 09/04/18 Keysha Jarvis, CodeyD [address] [place] [address] Pharmacist Internal Medicine 01/05/23 04/29/25 Jude Brothers MD [address] [place] [address] General Surgery 07/24/24 Radha Quispe MD [address] [place] [address] Sleep Medicine 07/29/24 Molly Trevino [address] [place] [address] Gastroenterology 08/06/24 documented as of this encounter
--- OUTSIDE RECORDS SUMMARY | 2025-08-25 11:40 | XMS_ITS | Clinical Summary ---
Author Organization [employer] Address [address] [place] [address] 7t [place] [address] Care Team Providers Care Clinical Sociologist Name Role Phone Jyoti Berry MD Primary Care Provider [phone] Jude Brothers MD Unavailable [phone] Radha Quispe MD Unavailable Molly Trevino Unavailable Allergies No known active allergies Medications hydrocortisone (Anusol-HC) 25 MG suppositoryIndic ations:External hemorrhoids UNWRAP AND INSERT 1 SUPPOSITORY RECTALLY EVERY DAY NEEDED FOR HEMORRHOIDS 25 suppository 2 09/27/19 25 Active selenium sulfide (Selsun) 2.5 % shampooIndicatio ns:Generalized seborrheic dermatitis Lather twice a week on scalp and leave on 2-3 min then risnse 118 mL 3 5 2:27 PM EST 10/01/19 25 Active hydrocortisone 1 % ointmentIndicati [...] mouth Once per day. 90 tablet 3 5 2:11 PM EST 12/25/19 25 026 Active losartan (Cozaar) 50 MG tabletIndication s:Essential hypertension Take 1 tablet (50 mg) by mouth Once per day. 90 tablet 3 5 4:01 PM EST 02/14/20 25 Active omega-3 (Fish Oil) 1000 MG capsuleIndicatio ns:Dyslipidemia Take 1 capsule (1,000 mg) by mouth 2 times daily. 180 capsule 3 5 2:22 PM EST 02/14/20 25 Active Active Problems Problem Noted Date Diagnosed Date [...] Pt agrees with the plan. Class 2 severe obesity due t o excess calories with serious comorbidity in adult 09/30/2024 Overview (11/25/2024): Discussed weight, diet, exercise with patient in relation to health conditions. Used motivational interviewing to illicit change talk and established initial goals with patient. -referred to [facility] 09/30/24 -Follows with [facility]ist [facility] Assessment & Plan (11/25/2024 7:37 PM EDT): Discussed weight, diet, exercise with patient in relation to health conditions. Used motivational interviewing to illicit change talk and established initial goals with patient. -referred to Tourist Escort 09/30/24 -Follows with Tourist Escort Assessment & Plan (09/30/2024 11:11 AM EST): Discussed weight, diet, exercise with patient in relation to health conditions. Used motivational interviewing to illicit change talk and established initial goals with patient. -referred to Tourist Escort 09/30/24 Constipation 09/30/2024 Overview (11/25/2024): Occasional constipation, [...] return if worsens for possible ortho referral. [facility] health care 01/12/2023 Overview (03/27/2024): -next physical exam due after 03/27/25 -eye care facilitated by [facility] is [facility] proxy filed 03/27/24 Assessment & Plan (03/27/2024 2:50 PM EDT): -next physical exam due after 03/27/25 -eye care facilitated by [facility] is [facility] proxy filed 03/27/24 Diverticular disease 08/26/2022 JACKIE [...] with gout ED 10/26/23; chlorthalidone discontinued by [facility] 11/19/24 due to potential increase in risk of gout - Lisinopril replaced by Losartan by [facility] 11/19/24 Assessment & Plan (06/05/2025 10:54 AM EDT): -Blood pressure is at goal -Continue lifestyle modifications -Patient diagnosed with gout ED 10/26/23; chlorthalidone discontinued by [facility] 11/19/24 due to potential increase in risk of gout - Lisinopril replaced by Losartan by [facility] 11/19/24 Orders: Basic Metabolic Panel; Future Assessment & Plan (11/25/2024 7:35 PM EDT): -Blood pressure is at goal -Continue lifestyle modifications -Patient diagnosed with gout ED 10/26/23; chlorthalidone discontinued by [facility] 11/19/24 due to potential increase in risk of gout - Lisinopril replaced by Losartan by [facility] 11/19/24 Assessment & Plan (09/30/2024 11:18 AM EST): -Blood pressure is at goal -Continue lifestyle modifications -Lisinopril increased to 20mg once daily by [facility] on 07/09/24 - Continue chlorthalidone 25mg once daily Assessment & Plan (03/27/2024 3:00 PM EDT): -Blood pressure is at goal -Continue lifestyle modifications -Lisinopril increased to 10mg once daily by [facility] 03/06/24. -Continue Chlorthalidone 25 mg Assessment & [...] at home to alleviate pain. 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 Wrist pain 06/09/2023 06/04/2025 Assessment & Plan [...] next 3 d to come back to [facility] for reevaluation, to rule out infectious vs [...] Encounters Date Type Department Care Team Description 07/30/2025 9:00 AM EST Office Visit [facility] ADULT DENTAL [address] [place] [address] Brandon Henriquez, BRENDA 07/20/[address] [address] Jyoti Berry MD Gout, unspecified cause, unspecified chronicity, unspecified site 06/05/2025 10:00 AM EDT Office Visit [address] [address] Jyoti Berry MD Essential hypertension (Primary Dx); JACKIE (obstructive sleep apnea); Acute gout of ankle, unspecified cause, unspecified laterality; Dyslipidemia; Funiculitis; Other fatigue; Weight gain 06/05/2025 Results Follow-Up [facility] WALK-IN CENTER [address] [place] [address] Jyoti Berry MD Uric acid 06/05/2025 Travel 06/04/[address] [address] Jyoti Berry MD chart prep 06/04/2025 [address] [place] [address] Jyoti Berry MD 05/29/2025 Patient Outreach [facility] CH[facility] MED & PEDS [address] [place] [address] Jyoti Berry MD Pre-visit Planning (SDOH was already completed) from Last 3 Months Immunizations Immunization Administration [...] 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 on file Not [...] 06/05/2025 10:03 AM EDT Plan of Treatment Health Maintenance Due Date Last Done Comments [...] from 05/05/2025 (Patient Refused) COVID-19 Vaccine ( - season) 2026 11/26/2020, 10/29/2020 Postponed from 05/05/2025 (Patient Refused) Depression Screening 06/05/2026 06/05/2025, 06/05/20 Disability Screening 06/05/2026 06/05/2025 Family Planning (PISQ) 06/05/2026 06/05/2025 Dental X-Ray: Full Mouth 06/14/2026 023, 04/23/2018, 04/19/2018 Tobacco Screening 07/30/2026 07/30/2025 DTaP/Tdap/Td Vaccines (2 - Td or Tdap) 01/09/2029 07/12/2018, 11/22/2006 Postponed from 07/12/2028 (Other Medical Reasons) Lipid Panel 12/23/2029 12/23/2024, 0701/2024, 08/15/2022 Zoster Vaccines (1 of 2) 2037 [...] 025 10:31 AM EDT) Keysha Cote PharmD Procedures Procedure Name Priority Date/Time Associated Diagnosis Comments CASE PRESENTATION, DETAILED AND EXTENSIVE TREATMENT PLANNING Routine 07/30/2025 9:00 AM EST 9 F(V) RESIN-BASED COMPOSITE - 1 SURF, ANTERIOR Routine 07/30/2025 9:00 AM EST BASIC METABOLIC PANEL Routine 06/05/2025 10:50 AM EDT Essential hypertension TSH W/REFLEX TO FT4 Routine 06/05/2025 1 0:50 AM EDT Other fatigue Weight gain URIC ACID Routine 06/05/2025 10:50 AM EDT Gout, unspecified cause, unspecified chronicity, unspecified site PERIODIC ORAL EVALUATION - ESTABLISHED PATIENT Routine [...] Free T4 0.89 0.32 - 4.0 uIU/mL [facility] Blood Venous blood specimen / Unknown 06/05/2025 10:50 AM EDT 06/05/2025 11:35 AM EDT Jyoti Berry MD LAB BLOOD ORDERABLES Final Result Performing Organization Address City/[facility]/ZIP Co de Phone Number [facility] [address] [place] [phone] * Uric acid (06/05/2025 10:50 AM EDT) Uric Acid 6.0 3.4 - 7.0 mg/dL [facility] Blood Venous blood specimen / Unknown 06/05/2025 10:50 AM EDT 06/05/2025 11:35 AM EDT Jyoti Berry MD LAB BLOOD ORDERABLES Final Result Performing Organization Address [facility] Co de Phone Number [facility] [address] [place] [phone] * (ABNORMAL) Basic Metabolic Panel (06/05/2025 10:50 AM EDT) Sodium 141 135 - 145 mmol/L [facility] Potassium 4.1 3.3 - 5.1 mmol/L [facility] Chloride 105 96 - 108 mmol/L [facility] Carbon Dioxide 30(H) 22 - 29 mmol/L [facility] Anion Gap 10(L) 12 - 20 [facility] Urea Nitrogen (BUN) 16 9 - 16 mg/dL [facility] Creatinine, Serum 0.93 0.5 - 1.4 mg/dL [facility] Estimated Glomerular Filt Rate >60 [facility] Comment:Chronic Kidney Disea se: Estimated GFR < 60 mL/min/1.41h2Rfmfwa Kidney Disease: Estimated GFR < 15 mL/min/1.73m2 Glucose 97 60 - 115 mg/dL [facility] Calcium 9.4 8.4 - 10.2 mg/dL [facility] Blood Venous blood specimen / Unknown 06/05/2025 10:50 AM EDT 06/05/2025 11:35 AM EDT Jyoti Berry MD LAB BLOOD ORDERABLES Final Result Performing Organization Address [facility]/ZIP Co de Phone Number [facility] [address] [place] [phone] * Lipid Panel, Standard (12/23/2024 8:56 AM EDT) Triglycerides 121 <150 mg/dL [facility] Comment:Desirable Triglyceri de: less than 150 mg/dLBorderline High Triglyceride 150-199 mg/dLHigh Triglyceride: 200-499 mg/dLVery High Triglyceride: greater than or equal to 5OO mg/dL Cholesterol 153 <200 mg/dL [facility] Comment:Desirable Cholestero l: less than 200 mg/dLBorderline High Cholesterol: 200-239 mg/dLHigh Cholesterol: greater than 239 mg/dL LDL Cholesterol Calculated 88 <100 mg/dL [facility] Comment:Desirable LDL: less than 100 mg/dLNear Optimal/Above Optimal LDL: 110- 129 mg/dLBorderline High LDL: 130-159 mg/dLHigh LDL: 160-189 mg/dLVery High LDL: greater than or equal to 190 mg/dL HDL Cholesterol 41 >40 mg/dL [facility] Comment:Desirable HDL: great er than 40 mg/dL Note: This HDL assay may give artificially low results in patients with liver disease. Blood Venous blood specimen / Unknown 12/23/2024 8:56 AM EDT 12/23/2024 8:56 AM EDT Jyoti Berry MD LAB BLOOD ORDERABLES Final Result Performing Organization Address City/[facility]/ZIP Co de Phone Number [facility] [address] [place] [phone] * Hepatitis C Viral RNA, Quantitative, Real-Time PC (08/19/2022 9:17 AM EST) HCV RNA, QN Real Time PCR <15 NOT DETECTED NOT DETECTED IU/mL [facility] HCV RNA QN Real Time PCR <1.18 NOT DETECTED NOT DETECTED Log IU/mL [facility] [facility] Comment: This test was performed using Real-Time Polymerase Chain Reaction. Reportable Range: 15 IU/mL to 100,000,000 IU/mL (1.18 Log IU/mL to 8.00 Log IU/mL). The analytical performance characteristics of this assay have been determined by [employer]. The modifications have not been cleared or approved by the FDA. This assay has been validated pursuant to the CLIA regulations and is used for clinical purposes. For more information on this test, go to: http://[employer].eduPad/faq/LZG82c3 (This link is being provided for informational/ educational purposes only.) 08/19/2022 9:17 AM EST 08/19/2022 9:17 AM EST Jyoti Berry MD LAB BLOOD ORDERABLES Final Result [facility] [address] [facility], [facility], [place] [address] [facility] [facility] [place] [facility] [address] [facility], (N[address]2) [place] [address] * HIV-1/2 Antigen and Antibodies, Fourth Generation, with Reflexes (08/19/2022 9:17 AM EST) HIV Antigen/Antibody, 4th Generation NON-REAC TIVE NON-REAC TIVE [facility] [facility] Comment: HIV-1 antigen and HIV-1/HIV-2 antibodies were [...] purpose. For additional information please refer to http://[employer].eduPad/faq/QAS130 (This link is being provided for informational/ educational purposes only.) The performance of this assay has not been clinically validated in patients less than 2 years old. Blood Venous blood specimen / Unknown 08/19/2022 9:17 AM EST 08/19/2022 9:17 AM EST Jyoti Berry MD LAB BLOOD ORDERABLES Final Result [facility] [address] [facility], [facility], [place] [address] [employer] [facility] [address] [facility], (N[address]2) [place] [address] from Last 3 Months or Most Recently Relevant to Health Maintenance Insurance [facility] 3 DENTAL - HSN PARTIAL (MEDICAID) Advance Directives Documents on File Type Date Recorded Patient Tar Leveler Expl anation Advance Directives and Living Will 03/27/2024 Health Care Proxy 03/27/24 Care Teams Clinical Sociologist Relationship Specialty Start Date End Date [place], MD Jyoti [address] [place] [address] PCP - General Family Medicine 09/04/18 Jude Brothers MD [address] [place] [address] General Surgery 07/24/24 Radha Quispe MD [address] [address] Sleep Medicine 07/29/24 Molly Trevino [address] [place] [address] Gastroenterology 08/06/24
--- OUTSIDE RECORDS SUMMARY | 2025-08-25 11:40 | XMS_ITS | Encounter Summary ---
Author Organization [employer] Address [address] [place] [address] 7t [place] [address] Care Team Providers Care Finisher Special Stocks Name Role Phone Jyoti Berry MD Primary Care Provider [phone] Jude Brothers MD Unavailable [phone] Radha Quispe MD Unavailable Molly Trevino Unavailable Reason for Visit * Reason Onset Date Comments Med Refill 07/21/2025 Encounter Details Date Type Department Care Team (Late st Contact Info) Description 07/20/2025 Refill [facility] MEDICINE [address] [place], [place] [phone] Jyoti Berry MD 230 [place] [address] Gout, unspecified cause, unspecified chronicity, unspecified site Social History Tobacco Use Types Packs/Day Years [...] 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 Author Blood Pressure < 140/90 Blood Pressure 132/82( 025 10:31 AM EDT) No Keysha Tavares, PharmD documented as of this encounter Visit Diagnoses Diagnosis Gout, unspecified cause, unspecified chronicity, unspecified site documented in this encounter Additional Health Concerns Assessment Noted Time PHQ-9 Depression Total Score: 1 06/05/20 25 10:27 AM EDT documented as of this encounter Care Teams Finisher Special Stocks Relationship Specialty Start Date End Date Jyoti Berry MD [address] [place] [address] PCP - General Family Medicine 09/04/18 Jude Brothers MD [address] [place] [address] General Surgery 07/24/24 Radha Quispe MD [address] [place] [address] Sleep Medicine 07/29/24 Molly Trevino [address] [place] [address] Gastroenterology 08/06/24 documented as of this encounter
--- OUTSIDE RECORDS SUMMARY | 2025-08-25 11:40 | XMS_ITS | Encounter Summary ---
Author Organization [employer] Address [address] [place] [address] 7t [place] [address] Care Team Providers Care Rehabilitation Teacher Name Role Phone Jyoti Berry MD Primary Care Provider [phone]- [phone] Keysha Jarvis PharmD Unavailable [phone] Jude Brothers MD Unavailable [phone] Radha Quispe MD Unavailable Molly Trevino Unavailable Reason for Visit * Reason Onset Date Comments Med Refill 10/04/2024 Encounter Details Date Type Department Care Team (Late st Contact Info) Description 10/04/2024 Refill [facility] MEDICINE 230 [place], [place] [phone] Jyoti Berry MD 230 [place], [place] [phone] Essential hypertension Social History Tobacco Use Types [...] 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 on file Not [...] documented as of this encounter Care Teams Rehabilitation Teacher Relationship Specialty Start Date End Date Jyoti Berry MD [address] [place] [address] PCP - General Family Medicine 09/04/18 Keysha Jarvis PharmD 230 [place] [address] Pharmacist Internal Medicine 01/05/23 04/29/25 Jude Brothers MD [address] [place] [address] General Surgery 07/24/24 Radha Quispe MD 100 [facility] [address] [place] [address] Sleep Medicine 07/29/24 Molly Trevino [address] [place] [address] Gastroenterology 08/06/24 documented as of this encounter
== END 2025-08-25 10:24 | disposition home or self-care (01) ==
LOC: HO.HGS 09:53
PROVIDERS: PCP Family Medicine; Visit Provider Surgery
DX: L72.11 Pilar cyst (principal)
CPT/HCPCS: 99213

== ENCOUNTER → 2025-08-25 09:52 | Outpatient (BNVA) | payer OTHER, SELFPAY | PROVIDERS: PCP Family Medicine; Visit Provider Surgery | DX: L72.11 Pilar cyst (principal) | CPT/HCPCS: 99212 ==